=== PATIENT | male | born 1980 | race Caucasian/White ===

== ENCOUNTER 2019-10-12 13:17 | Inpatient (IN) | payer MEDICARE, MEDICAID ==
[~2019-10-12] VITALS: Ht 167.6 cm; Wt 96.6 kg
[2019-10-12 13:17] VITALS: BP 110/68
[~2019-10-12 13:17] MED LIST: GABAPENTIN300 MG ORAL; QUETIAPINE FUM300 MG ORAL
[2019-10-12 13:45] LABS: BASOPHILS % (AUTO) 0.6 % (0.0-2.0); EOSINOPHILS % (AUTO) 1.5 % (0.0-3.0); HEMATOCRIT 26.3 % (42.0-52.0); HEMOGLOBIN 9.3 G/DL (14.2-18.0); LYMPHOCYTES % (AUTO) 17.3 % (20.0-45.0); MEAN CORPUSCULAR VOLUME 92 FL (80-99); MONOCYTES % (AUTO) 7.1 % (1.0-10.0); NEUTROPHILS % (AUTO) 73.5 % (45.0-75.0); PLATELET COUNT 301 K/UL (150-450); RED BLOOD COUNT 2.87 M/UL (4.70-6.10); RED CELL DISTRIBUTION WIDTH 11.2 % (11.6-14.8); WHITE BLOOD COUNT 8.9 K/UL (4.8-10.8)
[2019-10-12 13:54] LABS: ANION GAP 11 mmol/L (5-15); BLOOD UREA NITROGEN 15 mg/dL (7-18); CALCIUM 9.3 MG/DL (8.5-10.1); CARBON DIOXIDE 30 MMOL/L (21-32); CHLORIDE 104 MMOL/L (98-107); CREATININE 1.1 MG/DL (0.55-1.30); POTASSIUM 3.5 MMOL/L (3.5-5.1); SODIUM 144 MMOL/L (136-145)
[2019-10-12 13:58] LABS: ALANINE AMINOTRANSFERASE 47 U/L (12-78); ALBUMIN 2.5 G/DL (3.4-5.0); ALBUMIN/GLOBULIN RATIO 0.5 (1.0-2.7); ALKALINE PHOSPHATASE 64 U/L (46-116); ASPARTATE AMINO TRANSFERASE 18 U/L (15-37); BILIRUBIN,TOTAL 0.3 MG/DL (0.2-1.0); CREATINE KINASE 22 U/L (26-308)
--- NOTE | 2019-10-12 14:11 | Diagnostic Imaging Report ---
. Indications: Vertigo Technique: Spiral acquisitions obtained through the brain. Angled axial and coronal 5 x 5 mm slices were reconstructed. Total dose length product 1125 mGycm. CTDI vol(s) 53 mGy. Dose reduction achieved using automated exposure control Comparison: None. Findings: No acute intracranial hemorrhage or edema. No mass effect nor midline shift. Normal size ventricles and extra axial CSF spaces. Normal yo-white differentiation. There is an old lacunar infarct versus prominent. The vascular space in the right posterior lentiform nucleus Intact calvarium. There is opacification of the right-sided mastoids as well as the middle ear cavity. There is extensive opacification of the visualized left maxillary sinus, fairly extensive left-sided ethmoid opacification, and right maxillary sinus mucosal disease. The orbits are unremarkable. Impression: Negative for acute intracranial bleed or mass effect Right-sided mastoid and middle ear opacification Sinus disease Old right basal ganglia lacunar infarct versus prominent perivascular space The CT scanner at [facility] is accredited by the [employer] and the scans are performed using protocols designed to limit radiation exposure to as low as reasonably achievable to attain images of sufficient resolution adequate for diagnostic evaluation.
--- NOTE | 2019-10-12 14:12 | Diagnostic Imaging Report ---
Indication: Chest pain Technique: One view of the chest Comparison: none Findings: Lungs and pleural spaces are clear. Heart size is normal. Impression: No acute process
[2019-10-12] MEDS ORDERED: Augmentin 875mg Tab ORAL ONE (14:45)
[2019-10-12] MEDS ORDERED: Meclizine 25mg tab ORAL PRN (14:45)
[2019-10-12 15:01] VITALS: BP 145/95
[2019-10-12] MEDS ORDERED: Piperacillin/Tazobactam 3.375 GM in NS 110 ML IVPB ONE (15:15)
[2019-10-12 15:36] LABS: APPEARANCE,URINE CLEAR; BILIRUBIN, URINE NEGATIVE (NEGATIVE); COLOR,URINE PALE YELLOW; GLUCOSE, URINE (UA) NEGATIVE (NEGATIVE); KETONES,URINE NEGATIVE (NEGATIVE); LEUKOCYTE ESTERASE ,URINE NEGATIVE (NEGATIVE); NITRITE,URINE NEGATIVE (NEGATIVE); PH,URINE 5 (4.5-8.0); PROTEIN,URINE 2+ (NEGATIVE); UROBILINOGEN,URINE NORMAL MG/DL (0.0-1.0)
[2019-10-12] MEDS ORDERED: LORazepam 1mg tab ORAL PRN (17:15)
[2019-10-12 17:24] VITALS: BP 131/70
--- NOTE | 2019-10-12 17:31 | History & Physical ---
History and Physical History & Physicial Dictated for Int Med-Dr Shin no. [id number]. Jamarcus Varghese MD Oct 12, 2019 17:31
--- NOTE | 2019-10-12 17:45 | Emergency Room Report ---
History of Present Illness General Chief Complaint: Dizziness Source: Patient (Stacey Alvarado) Present Illness HPI 39-year-old male with history of neuropathy here from boarding care due to feeling dizzy before taking shower earlier today. Patient denies any head injury and falling. Patient appears to be pale, no neurovascular deficits noted. Patient denies any generalized or unilateral weakness. Reports that for the past 2 weeks has been having left ear pain. Pus drainage noted to the right ear. Complains of vertigo. Complains of dizziness. Denies hearing loss , tinnitus, nausea vomiting. 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 Patient also reports that he has history of drug abuse however has not used in in a long time. Patient is in mild distress. Denies chest pain, shortness of breath, palpitation, headache and dizziness. Complains of weakness. (Stacey Alvarado) Allergies: Coded Allergies: EGG (Verified Allergy, Unknown, 10/12/19) VENLAFAXINE (Verified Allergy, Unknown, 10/12/19) Patient History Past Medical History: see triage record Past Surgical History: unable to obtain Pertinent Family History: unable to obtain Immunizations: UTD Reviewed Nursing Documentation: PMH: Agreed; PSxH: Agreed (Stacey Alvarado) Nursing Documentation-PMH Hx Diabetes: Yes History Of Psychiatric Problem: Yes Hx Dizziness: Yes Hx Weakness: Yes (Stacey Alvarado) Review of Systems All Other Systems: negative except mentioned in HPI (Stacey lAvarado) Physical Exam Vital Signs Date Time Temp Pulse Resp B/P (MAP) Pulse Ox O2 Delivery O2 Flow Rate FiO2 10/12/19 13:09 98.6 10/12/19 13:09 90 19 110/68 (82) 97 Room Air 10/12/19 15:01 2.0 Sp02 EP Interpretation: reviewed, normal General Appearance: alert, GCS 15, non-toxic, mild distress Head: normocephalic, atraumatic Eyes: bilateral eye normal inspection, bilateral eye PERRL ENT: hearing grossly normal, normal pharynx, no angioedema, other - pus drainage through right ear Neck: full range of motion, supple/symm/no masses Respiratory: chest non-tender, lungs clear, normal breath sounds, no rhonchi, no wheezing, speaking full sentences Cardiovascular #1: regular rate, rhythm, no edema, no murmur Gastrointestinal: normal bowel sounds, non tender, soft, non-distended, no guarding, no rebound Rectal: deferred Genitourinary: no CVA tenderness Musculoskeletal: back normal, digits/nails normal Neurologic: alert, motor strength/tone normal, oriented x3, sensory intact, responsive, speech normal Psychiatric: judgement/insight normal, memory normal, mood/affect normal, no suicidal/homicidal ideation Skin: no rash Lymphatic: no adenopathy (Stacey Alvarado) Medical Decision Making PA Attestation Diagnosis and treatment plans were reviewed and discussed with my supervising physician Dr. Mtz (Stacey Alvarado) PA Attestation I saw and evaluated the patient and discussed the care with Stacey MARINO. I agree with the findings and plan as documented in the note. (Joaquín Mtz MD) Diagnostic Impression: Primary Impression: Dizziness Additional Impression: Symptomatic anemia ER Course 39-year-old male with history of neuropathy here from [facility] care due to feeling dizzy before taking shower earlier today. Patient denies any head injury and falling. Patient appears to be pale, no neurovascular deficits noted. Patient denies any generalized or unilateral weakness. Reports that for the past 2 weeks has been having left ear pain. Pus drainage noted to the right ear. Complains of vertigo. Complains of dizziness. Denies hearing loss , tinnitus, nausea vomiting. 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 Patient also reports that he has history of drug abuse however has not used in in a long time. Patient is in mild distress. Denies chest pain, shortness of breath, palpitation, headache and dizziness. Complains of weakness. Patient also complains of having history of heart failure however has not been seen by a print project manager in a long time. Denies any chest pain. Ddx considered but are not limited to: Dizziness due to alcohol intoxication, dizziness unspecified, dizziness due to head trauma, dizziness secondary to cardiac reasons Vital signs: are WNL, pt. is afebrile H&PE are most consistent with: Dizziness, symptomatic anemia ORDERS: CBC, CMP, UA, tox screen, EtOH levels, PT PTT, head CT no contrast, chest x-ray, troponin, EKG, proBNP ER intervention: NS bolus, Zosyn, Zofran, meclizine Patient was admitted with diagnosis of dizziness, symptomatic anemia to Dr. Shin under supervision of : Smith pt stable at time of admission (Stacey Alvarado) EKG Diagnostic Results Rate: normal Rhythm: NSR ST Segments: no acute changes Other Impression No acute ST changes (Stacey Alvarado) Chest X-Ray Diagnostic Results Chest X-Ray Diagnostic Results : Chest X-Ray Ordered: Yes # of Views/Limited/Complete: 1 View Indication: Other EP Interpretation: Yes PA Xray: Interpretation reviewed, by supervising MD, and agrees with findings. Interpretation: no consolidation, no effusion, no pneumothorax Impression: No acute disease Electronically Signed by: Stacey Yap PA-C (Stacey Alvarado) CT/MRI/US Diagnostic Results CT/MRI/US Diagnostic Results : Imaging Test Ordered: Head CT no contrast Impression Old infarct noted, no intracranial bleed, sinus infection noted (Stacey Alvarado) Last Vital Signs Date Time Temp Pulse Resp B/P (MAP) Pulse Ox O2 Delivery O2 Flow Rate FiO2 10/12/19 17:24 101.8 85 20 131/70 (90) 96 10/12/19 17:00 Room Air 10/12/19 16:35 2.0 (Stacey Alvarado) Disposition: ADMITTED INPATIENT Condition: Serious Referrals: NOT CHOSEN IPA/,REFERRING (PCP) Stacey Alvarado Oct 12, 2019 17:45 Joaquín Mtz MD Oct 24, 2019 06:29
[2019-10-12 20:00] VITALS: BP 133/80
[2019-10-12] MEDS: QUEtiapine 200mg tab ORAL SCH (21:03)
[2019-10-12] MEDS: Heparin 5000 units/ml inj SUBQ SCH (21:08)
[2019-10-12] MEDS: NovoLOG Insulin Flexpen SUBQ SCH (21:09)
--- NOTE | 2019-10-12 21:30 | History and Physical Report ---
DATE OF ADMISSION: 10/12/2019 CHIEF COMPLAINT: The patient is a 39-year-old, male who presents with chief complaint of altered mental status. HISTORY OF THE PRESENT ILLNESS: The patient is a resident of [facility]. The patient states he has a history of diabetes, however he is not on any medication for diabetes. The patient states history of present illness began two weeks ago. The patient began to experience right ear pain. This extended to the right side of the face. The patient also has scotoma. The patient sees dots even when his eyes are closed. The patient also states he has photophobia. The patient has been closing himself in his room with lights off. The patient states this morning, he was getting ready to eat. The patient could hear staff talking to him however he could not respond. The patient was unable to get out of bed. The patient was transported to [place] emergency room. The patient was admitted with altered mental status to rule out versus acute cerebrovascular accident. REVIEW OF SYSTEMS: CONSTITUTIONAL: The patient denies weight loss or weight gain. The patient denies fevers or chills. HEENT: The patient denies ear or throat pain. The patient complains of headache as above. ABDOMEN: The patient denies nausea, vomiting, diarrhea, or constipation. GENITOURINARY: The patient denies dysuria or increased frequency of urination. NEUROMUSCULAR: The patient denies seizures or generalized weakness. PAST MEDICAL HISTORY: Significant for: 1. Type 2 diabetes, however, the patient is not on antihyperglycemic medication. 2. Neuropathy. 3. Hypertension. 4. Bipolar disorder. 5. Schizophrenia. PAST SURGICAL HISTORY: Significant for back surgery secondary to fall injury. CURRENT MEDICATIONS: 1. Gabapentin 300 mg one tablet p.o. three times a day. 2. Seroquel 200 mg one tablet p.o. twice daily. ALLERGIES: To Effexor. SOCIAL HISTORY: The patient is single and lives at [facility]. The patient admits to tobacco use of one-half pack per day. The patient denies alcohol use. PHYSICAL EXAMINATION: VITAL SIGNS: Temperature 98.6, respirations 19, pulse 90, blood pressure 110/68, pulse ox 97% on room air. GENERAL: The patient is well-developed and well-nourished male in no apparent distress. HEENT: Eyes, pupils are equal and responsive to light and accommodation. Extraocular movements are intact. NECK: Supple without lymphadenopathy. CHEST: Lungs are clear to auscultation bilaterally without wheezes or rales. CARDIOVASCULAR: Regular rate. S1 and S2 normal without murmurs, rubs, or gallops. ABDOMEN: Soft, nontender, nondistended. Positive bowel sounds. No evidence of hepatosplenomegaly. Currently, no rebound or guarding noted. EXTREMITIES: Negative for clubbing, cyanosis, or edema. RECTAL/GENITAL: Refused. NEUROLOGIC: Cranial nerves II through XII are grossly intact without focal deficits. Motor strength is 5/5 bilaterally. Deep tendon reflexes 2+ plantar. LABORATORY STUDIES: WBC 8.9, hemoglobin 9.3, hematocrit 26.3, platelets 301,000. Sodium 144, potassium 3.5, chloride 104, CO2 30, BUN 15, creatinine 1.1, glucose 176. Troponin 0.034. BNP elevated at 1730. Urinalysis showed 5+ blood with 15 to 20 rbc's. Urine toxicology screen was negative. ASSESSMENT: This is a 39-year-old male. 1. Altered mental status. 2. Congestive heart failure. 3. Right-sided headache. 4. Scotoma. 5. Photophobia. 6. Bipolar disorder. 7. Schizophrenia. 8. Diabetes type 2. 9. Hypertension. TREATMENT: 1. Altered mental status. This may be secondary to acute cerebrovascular accident versus . The patient is currently not on antihyperglycemic medication. The patient has been started on a NovoLog sliding scale as his admission glucose is elevated. 2. Congestive heart failure. Cardiology consultation has been obtained with Dr. Lucas Bauer. We will follow recommendations of Cardiology. An echocardiogram is pending. 3. Right-sided headache. The patient will receive Tylenol as needed for headache. A CT scan of the brain in the emergency room failed to demonstrate acute intracranial bleed or mass effect. 4. Bipolar disorder/schizophrenia. Continue Seroquel as above. 5. Diabetes type 2. As above, the patient has been placed on NovoLog sliding scale. 6. Hypertension. The patient is currently off antihypertensive medications. 7. Sinusitis. Initial CT scan of the brain revealed right-sided mastoid and middle ear opacification. The patient has been started empirically on Levaquin. Jamarcus Varghese M.D. DR: [place] JOB#: [id number] CC:
[2019-10-13] VITALS: BP 133/81
[2019-10-13 04:00] VITALS: BP 120/67
[2019-10-13] MEDS: NovoLOG Insulin Flexpen SUBQ SCH ×4 (06:18→22:00)
[2019-10-13 07:09] LABS: BASOPHILS % (AUTO) 0.6 % (0.0-2.0); EOSINOPHILS % (AUTO) 2.4 % (0.0-3.0); HEMATOCRIT 24.9 % (42.0-52.0); HEMOGLOBIN 8.5 G/DL (14.2-18.0); LYMPHOCYTES % (AUTO) 24.2 % (20.0-45.0); MEAN CORPUSCULAR VOLUME 93 FL (80-99); MONOCYTES % (AUTO) 11.6 % (1.0-10.0); NEUTROPHILS % (AUTO) 61.2 % (45.0-75.0); PLATELET COUNT 249 K/UL (150-450); RED BLOOD COUNT 2.67 M/UL (4.70-6.10); RED CELL DISTRIBUTION WIDTH 11.3 % (11.6-14.8); WHITE BLOOD COUNT 6.8 K/UL (4.8-10.8)
[2019-10-13 07:21] LABS: ANION GAP 4 mmol/L (5-15); BLOOD UREA NITROGEN 21 mg/dL (7-18); CALCIUM 8.8 MG/DL (8.5-10.1); CARBON DIOXIDE 33 MMOL/L (21-32); CHLORIDE 106 MMOL/L (98-107); CREATININE 1.2 MG/DL (0.55-1.30); SODIUM 143 MMOL/L (136-145)
[2019-10-13 08:00] VITALS: BP 141/86
[2019-10-13] MEDS: QUEtiapine 200mg tab ORAL SCH ×2 (08:43→21:44)
[2019-10-13] MEDS: Aspirin EC 325mg tab ORAL SCH (08:43)
[2019-10-13] MEDS: Heparin 5000 units/ml inj SUBQ SCH ×2 (08:51→21:46)
[2019-10-13 12:00] VITALS: BP 137/73
--- NOTE | 2019-10-13 13:03 | Infectious Diseases Prog Note ---
Subjective Allergies: Coded Allergies: EGG (Verified Allergy, Unknown, 10/12/19) VENLAFAXINE (Verified Allergy, Unknown, 10/12/19) Subjective # [id number] Objective Vital Signs Last 24 Hour Vital Signs Date Time Temp Pulse Resp B/P (MAP) Pulse Ox O2 Delivery O2 Flow Rate FiO2 10/13/19 12:00 81 10/13/19 12:00 2.0 10/13/19 12:00 98.8 79 20 137/73 (94) 94 10/13/19 09:00 Nasal Cannula 2.0 10/13/19 08:00 98.2 78 18 141/86 (104) 97 10/13/19 04:00 71 10/13/19 04:00 2.0 10/13/19 04:00 96.9 72 18 120/67 (84) 97 10/13/19 00:00 80 10/13/19 00:00 98.1 80 17 133/81 (98) 96 10/12/19 21:00 Nasal Cannula 2.0 10/12/19 20:00 98.2 82 18 133/80 (97) 97 10/12/19 20:00 2.0 10/12/19 20:00 76 10/12/19 18:23 99.0 10/12/19 18:07 90 10/12/19 17:24 101.8 85 20 131/70 (90) 96 10/12/19 17:00 Room Air 10/12/19 16:35 98.3 92 15 124/67 97 Nasal Cannula 2.0 10/12/19 15:01 98.5 95 15 145/95 90 Nasal Cannula 2.0 10/12/19 13:17 90 19 Room Air 10/12/19 13:17 98.6 90 19 110/68 97 Room Air 10/12/19 13:09 98.6 90 19 110/68 (82) 97 Room Air 10/12/19 13:09 98.6 Height (Feet): 5 Height (Inches): 6.00 Weight (Pounds): 209 Microbiology Date/Time Source Procedure Growth Status 10/12/19 15:15 Rectum Received Laboratory Tests Test 10/12/19 13:30 10/12/19 15:08 10/12/19 20:05 10/13/19 06:29 White Blood Count 8.9 K/UL (4.8-10.8) 6.8 K/UL (4.8-10.8) Red Blood Count 2.87 M/UL (4.70-6.10) L 2.67 M/UL (4.70-6.10) L Hemoglobin 9.3 G/DL (14.2-18.0) L 8.5 G/DL (14.2-18.0) L Hematocrit 26.3 % (42.0-52.0) L 24.9 % (42.0-52.0) L Mean Corpuscular Volume 92 FL (80-99) 93 FL (80-99) Mean Corpuscular Hemoglobin 32.5 PG (27.0-31.0) H 31.9 PG (27.0-31.0) H Mean Corpuscular Hemoglobin Concent 35.5 G/DL (32.0-36.0) 34.3 G/DL (32.0-36.0) Red Cell Distribution Width 11.2 % (11.6-14.8) L 11.3 % (11.6-14.8) L Platelet Count 301 K/UL (150-450) 249 K/UL (150-450) Mean Platelet Volume 5.0 FL (6.5-10.1) L 5.0 FL (6.5-10.1) L Neutrophils (%) (Auto) 73.5 % (45.0-75.0) 61.2 % (45.0-75.0) Lymphocytes (%) (Auto) 17.3 % (20.0-45.0) L 24.2 % (20.0-45.0) Monocytes (%) (Auto) 7.1 % (1.0-10.0) 11.6 % (1.0-10.0) H Eosinophils (%) (Auto) 1.5 % (0.0-3.0) 2.4 % (0.0-3.0) Basophils (%) (Auto) 0.6 % (0.0-2.0) 0.6 % (0.0-2.0) Prothrombin Time 10.8 SEC (9.30-11.50) Prothromb Time International Ratio 1.0 (0.9-1.1) Activated Partial Thromboplast Time 27 SEC (23-33) Sodium Level 144 MMOL/L (136-145) 143 MMOL/L (136-145) Potassium Level 3.5 MMOL/L (3.5-5.1) 4.0 MMOL/L (3.5-5.1) Chloride Level 104 MMOL/L (98-107) 106 MMOL/L (98-107) Carbon Dioxide Level 30 MMOL/L (21-32) 33 MMOL/L (21-32) H Anion Gap 11 mmol/L (5-15) 4 mmol/L (5-15) L Blood Urea Nitrogen 15 mg/dL (7-18) 21 mg/dL (7-18) H Creatinine 1.1 MG/DL (0.55-1.30) 1.2 MG/DL (0.55-1.30) Estimat Glomerular Filtration Rate > 60 mL/min (>60) > 60 mL/min (>60) Glucose Level 176 MG/DL (74-106) H 144 MG/DL (74-106) H Hemoglobin A1c 5.9 % (4.3-6.0) Calcium Level 9.3 MG/DL (8.5-10.1) 8.8 MG/DL (8.5-10.1) Total Bilirubin 0.3 MG/DL (0.2-1.0) Aspartate Amino Transf (AST/SGOT) 18 U/L (15-37) Alanine Aminotransferase (ALT/SGPT) 47 U/L (12-78) Alkaline Phosphatase 64 U/L (46-116) Total Creatine Kinase 22 U/L (26-308) L Troponin I 0.034 ng/mL (0.000-0.056) 0.035 ng/mL (0.000-0.056) Pro-B-Type Natriuretic Peptide 1730 pg/mL (0-125) H 523 pg/mL (0-125) H Total Protein 7.6 G/DL (6.4-8.2) Albumin 2.5 G/DL (3.4-5.0) L Globulin 5.1 g/dL Albumin/Globulin Ratio 0.5 (1.0-2.7) L Serum Alcohol < 3 mg/dL Urine Color Pale yellow Urine Appearance Clear Urine pH 5 (4.5-8.0) Urine Specific [place] 1.005 (1.005-1.035) Urine Protein 2+ (NEGATIVE) H Urine Glucose (UA) Negative (NEGATIVE) Urine Ketones Negative (NEGATIVE) Urine Blood 5+ (NEGATIVE) H Urine Nitrite Negative (NEGATIVE) Urine Bilirubin Negative (NEGATIVE) Urine Urobilinogen Normal MG/DL (0.0-1.0) Urine Leukocyte Esterase Negative (NEGATIVE) Urine RBC 15-20 /HPF (0 - 0) H Urine WBC 0-2 /HPF (0 - 0) Urine Squamous Epithelial Cells Occasional /LPF Urine Amorphous Sediment Moderate /LPF (NONE) H Urine Bacteria Few /HPF (NONE) Urine Opiates Screen Negative (NEGATIVE) Urine Barbiturates Screen Negative (NEGATIVE) Phencyclidine (PCP) Screen Negative (NEGATIVE) Urine Amphetamines Screen Negative (NEGATIVE) Urine Benzodiazepines Screen Negative (NEGATIVE) Urine Cocaine Screen Negative (NEGATIVE) Urine Marijuana (THC) Screen Negative (NEGATIVE) Current Medications Medications (Trade) Dose Ordered Sig/Yaima Route PRN Reason Start Time Stop Time Status Last Admin Dose Admin Acetaminophen (Tylenol) 650 mg Q4H PRN ORAL fever 10/12/19 17:15 11/11/19 17:14 10/12/19 17:53 Acetaminophen (Tylenol) 650 mg Q4H PRN ORAL Mild Pain (Pain Scale 1-3) 10/12/19 17:15 11/11/19 17:14 Aspirin (Ecotrin) 325 mg DAILY ORAL 10/13/19 09:00 11/12/19 08:59 10/13/19 08:43 Dextrose (Dextrose 50%) 25 ml Q30M PRN IV Hypoglycemia 10/12/19 17:30 11/11/19 17:29 Dextrose (Dextrose 50%) 50 ml Q30M PRN IV Hypoglycemia 10/12/19 17:30 11/11/19 17:29 Gabapentin (Neurontin) 300 mg BEDTIME ORAL 10/12/19 21:00 11/11/19 20:59 10/12/19 21:03 Heparin Sodium (Porcine) (Heparin 5000 units/ml) 5,000 units EVERY 12 HOURS SUBQ 10/12/19 21:00 11/11/19 20:59 10/13/19 08:51 Insulin Aspart (NovoLOG) BEFORE MEALS AND HS SUBQ 10/12/19 21:00 11/11/19 20:59 10/12/19 21:09 Lorazepam (Ativan) 1 mg Q4H PRN ORAL For Anxiety 10/12/19 17:15 10/19/19 17:14 Meclizine HCl (Antivert) 25 mg NOW PRN ORAL for dizziness 10/12/19 14:45 11/11/19 14:44 10/12/19 14:52 Pantoprazole (Protonix) 40 mg DAILY ORAL 10/13/19 09:00 11/12/19 08:59 10/13/19 08:43 Quetiapine Fumarate (SEROqueL) 200 mg Q12HR ORAL 10/12/19 21:00 11/11/19 20:59 10/13/19 08:43 Munir Thompson MD Oct 13, 2019 13:03
--- NOTE | 2019-10-13 14:00 | Consultation ---
History of Present Illness General Date patient seen: Oct 13, 2019 Chief Complaint: Dizziness Reason for Consultation: inpatient management Present Illness HPI 39 year old male with hx of psychosis, schizophrenia, depression, living in an assisted living started having right sided ear pain for the last two weeks. He developed photophobia as well. On presentation he was found severely anemic and admitted to telemetry. Allergies: Coded Allergies: EGG (Verified Allergy, Unknown, 10/12/19) VENLAFAXINE (Verified Allergy, Unknown, 10/12/19) Medication History Scheduled Gabapentin* (Gabapentin*), 300 MG ORAL BEDTIME, (Reported) Quetiapine Fumarate (Quetiapine Fumarate), 300 MG ORAL DAILY, (Reported) Patient History Healthcare decision maker Resuscitation status Full Code Advanced Directive on File Past Medical/Surgical History Past Medical/Surgical History: (1) Schizophrenia Review of Systems All Other Systems: negative except mentioned in HPI Physical Exam General Appearance: WD/WN, alert Lines, tubes and drains: peripheral HEENT: normocephalic, anicteric Neck: non-tender, supple Respiratory/Chest: chest wall non-tender, lungs clear, normal breath sounds, no respiratory distress Cardiovascular/Chest: normal peripheral pulses, normal rate Abdomen: normal bowel sounds, non tender Genitourinary/Rectal: normal genital exam Extremities: normal range of motion Skin Exam: normal pigmentation Last 24 Hour Vital Signs Date Time Temp Pulse Resp B/P (MAP) Pulse Ox O2 Delivery O2 Flow Rate FiO2 10/13/19 12:00 81 10/13/19 12:00 2.0 10/13/19 12:00 98.8 79 20 137/73 (94) 94 10/13/19 09:00 Nasal Cannula 2.0 10/13/19 08:00 98.2 78 18 141/86 (104) 97 10/13/19 04:00 71 10/13/19 04:00 2.0 10/13/19 04:00 96.9 72 18 120/67 (84) 97 10/13/19 00:00 80 10/13/19 00:00 98.1 80 17 133/81 (98) 96 10/12/19 21:00 Nasal Cannula 2.0 10/12/19 20:00 98.2 82 18 133/80 (97) 97 10/12/19 20:00 2.0 10/12/19 20:00 76 10/12/19 18:23 99.0 10/12/19 18:07 90 10/12/19 17:24 101.8 85 20 131/70 (90) 96 10/12/19 17:00 Room Air 10/12/19 16:35 98.3 92 15 124/67 97 Nasal Cannula 2.0 10/12/19 15:01 98.5 95 15 145/95 90 Nasal Cannula 2.0 Intake and Output 10/12/19 10/13/19 19:00 07:00 Intake Total 1480 ml Output Total 450 ml 400 ml Balance 1030 ml -400 ml Intake Oral 480 ml IV Total 1000 ml Output Urine Total 450 ml 400 ml Laboratory Tests Test 10/12/19 15:08 10/12/19 20:05 10/13/19 06:29 Urine Color Pale yellow Urine Appearance Clear Urine pH 5 (4.5-8.0) Urine Specific [place] 1.005 (1.005-1.035) Urine Protein 2+ (NEGATIVE) H Urine Glucose (UA) Negative (NEGATIVE) Urine Ketones Negative (NEGATIVE) Urine Blood 5+ (NEGATIVE) H Urine Nitrite Negative (NEGATIVE) Urine Bilirubin Negative (NEGATIVE) Urine Urobilinogen Normal MG/DL (0.0-1.0) Urine Leukocyte Esterase Negative (NEGATIVE) Urine RBC 15-20 /HPF (0 - 0) H Urine WBC 0-2 /HPF (0 - 0) Urine Squamous Epithelial Cells Occasional /LPF Urine Amorphous Sediment Moderate /LPF (NONE) H Urine Bacteria Few /HPF (NONE) Urine Opiates Screen Negative (NEGATIVE) Urine Barbiturates Screen Negative (NEGATIVE) Phencyclidine (PCP) Screen Negative (NEGATIVE) Urine Amphetamines Screen Negative (NEGATIVE) Urine Benzodiazepines Screen Negative (NEGATIVE) Urine Cocaine Screen Negative (NEGATIVE) Urine Marijuana (THC) Screen Negative (NEGATIVE) Troponin I 0.035 ng/mL (0.000-0.056) White Blood Count 6.8 K/UL (4.8-10.8) Red Blood Count 2.67 M/UL (4.70-6.10) L Hemoglobin 8.5 G/DL (14.2-18.0) L Hematocrit 24.9 % (42.0-52.0) L Mean Corpuscular Volume 93 FL (80-99) Mean Corpuscular Hemoglobin 31.9 PG (27.0-31.0) H Mean Corpuscular Hemoglobin Concent 34.3 G/DL (32.0-36.0) Red Cell Distribution Width 11.3 % (11.6-14.8) L Platelet Count 249 K/UL (150-450) Mean Platelet Volume 5.0 FL (6.5-10.1) L Neutrophils (%) (Auto) 61.2 % (45.0-75.0) Lymphocytes (%) (Auto) 24.2 % (20.0-45.0) Monocytes (%) (Auto) 11.6 % (1.0-10.0) H Eosinophils (%) (Auto) 2.4 % (0.0-3.0) Basophils (%) (Auto) 0.6 % (0.0-2.0) Sodium Level 143 MMOL/L (136-145) Potassium Level 4.0 MMOL/L (3.5-5.1) Chloride Level 106 MMOL/L (98-107) Carbon Dioxide Level 33 MMOL/L (21-32) H Anion Gap 4 mmol/L (5-15) L Blood Urea Nitrogen 21 mg/dL (7-18) H Creatinine 1.2 MG/DL (0.55-1.30) Estimat Glomerular Filtration Rate > 60 mL/min (>60) Glucose Level 144 MG/DL (74-106) H Calcium Level 8.8 MG/DL (8.5-10.1) Pro-B-Type Natriuretic Peptide 523 pg/mL (0-125) H Microbiology Date/Time Source Procedure Growth Status 10/12/19 15:15 Rectum Received Height (Feet): 5 Height (Inches): 6.00 Weight (Pounds): 209 Medications Current Medications Medications (Trade) Dose Ordered Sig/Yaima Route PRN Reason Start Time Stop Time Status Last Admin Dose Admin Acetaminophen (Tylenol) 650 mg Q4H PRN ORAL fever 10/12/19 17:15 11/11/19 17:14 10/12/19 17:53 Acetaminophen (Tylenol) 650 mg Q4H PRN ORAL Mild Pain (Pain Scale 1-3) 10/12/19 17:15 11/11/19 17:14 Aspirin (Ecotrin) 325 mg DAILY ORAL 10/13/19 09:00 11/12/19 08:59 10/13/19 08:43 Dextrose (Dextrose 50%) 25 ml Q30M PRN IV Hypoglycemia 10/12/19 17:30 11/11/19 17:29 Dextrose (Dextrose 50%) 50 ml Q30M PRN IV Hypoglycemia 10/12/19 17:30 11/11/19 17:29 Gabapentin (Neurontin) 300 mg BEDTIME ORAL 10/12/19 21:00 11/11/19 20:59 10/12/19 21:03 Heparin Sodium (Porcine) (Heparin 5000 units/ml) 5,000 units EVERY 12 HOURS SUBQ 10/12/19 21:00 11/11/19 20:59 10/13/19 08:51 Insulin Aspart (NovoLOG) BEFORE MEALS AND HS SUBQ 10/12/19 21:00 11/11/19 20:59 10/12/19 21:09 Lorazepam (Ativan) 1 mg Q4H PRN ORAL For Anxiety 10/12/19 17:15 10/19/19 17:14 Meclizine HCl (Antivert) 25 mg NOW PRN ORAL for dizziness 10/12/19 14:45 11/11/19 14:44 10/12/19 14:52 Pantoprazole (Protonix) 40 mg DAILY ORAL 10/13/19 09:00 11/12/19 08:59 10/13/19 08:43 Piperacillin Sod/ Tazobactam Sod 3.375 gm/Sodium Chloride 110 ml @ 27.5 mls/hr Q8H IVPB 10/13/19 14:30 10/20/19 14:29 Quetiapine Fumarate (SEROqueL) 200 mg Q12HR ORAL 10/12/19 21:00 11/11/19 20:59 10/13/19 08:43 Vancomycin HCl (Vanco rx to dose) 1 ea DAILY PRN MISC Per rx protocol 10/13/19 13:15 11/12/19 13:14 Vancomycin/Sodium Chloride 275 ml @ 137.5 mls/ hr Q12H IVPB 10/13/19 19:00 10/18/19 18:59 Assessment/Plan Problem List: (1) Otitis ICD Codes: H66.90 - Otitis media, unspecified, unspecified ear SNOMED: 57126179 (2) Schizophrenia ICD Codes: F20.9 - Schizophrenia, unspecified SNOMED: 85921936 (3) Symptomatic anemia ICD Codes: D64.9 - Anemia, unspecified SNOMED: 710168824 Assessment/Plan: pain control iv abx ENT called check cultures resume anti psychiatric meds Kati Gamble MD Oct 13, 2019 14:00
[2019-10-13] MEDS: Piperacillin/Tazobactam 3.375 GM in NS 110 ML IVPB SCH ×2 (15:01→21:43)
[2019-10-13 16:08] VITALS: BP 140/69
--- NOTE | 2019-10-13 16:41 | Diagnostic Imaging Report ---
Indication: Head pain Technique: IV administration nonionic contrast. Spiral acquisitions obtained through the brain Multiplanar reconstructions were generated. Total dose length product 1170 mGycm. CTDIvol(s) 53, 77, 13 mGy. Radiation dose was minimized using automated exposure control Comparison: Noncontrast head CT 10/12/2019 Findings: No abnormal contrast enhancing lesion is demonstrated. No definite acute hemorrhage. No mass effect nor midline shift. Again demonstrated is bilateral maxillary, sphenoid, ethmoid, and frontal sinus disease. Again demonstrated is extensive opacification of the right mastoid air cells. There is also probably soft tissue within the middle ear. There is narrowing of the external auditory canal, which on the available sections is filled with soft tissue or fluid. This was contain air on previous day's exam. There is some indistinctness of the anterior wall of the temporal bone on the right as compared to the left. Impression: Abnormal right temporal bone, with opacification of the right mastoid air cells, probably the middle ear cavity, and of the external auditory canal. Per discussion with referring physician, patient has evidence of otitis with pus coming out of the ear. In addition, there is slight indistinctness of the anterior margin of the temporal bone as compared to the left, which could indicate bony erosive changes. Consider further evaluation with temporal bone CT and/or MRI No evidence of associated brain abscess. Findings discussed by phone with Dr. Thompson at the time of interpretation The CT scanner at [facility] is accredited by the [employer] and the scans are performed using protocols designed to limit radiation exposure to as low as reasonably achievable to attain images of sufficient resolution adequate for diagnostic evaluation.
[2019-10-13] MEDS: Vancomycin 1.5gm/NS Premix IVPB SCH (19:06)
--- NOTE | 2019-10-13 19:08 | Cardiac Electrophysiology PN ---
Subjective Subjective [id number] Objective Last 24 Hour Vital Signs Date Time Temp Pulse Resp B/P (MAP) Pulse Ox O2 Delivery O2 Flow Rate FiO2 10/13/19 16:08 2.0 10/13/19 16:08 98.4 68 18 140/69 (92) 94 10/13/19 16:00 89 10/13/19 12:00 81 10/13/19 12:00 2.0 10/13/19 12:00 98.8 79 20 137/73 (94) 94 10/13/19 09:00 Nasal Cannula 2.0 10/13/19 08:00 98.2 78 18 141/86 (104) 97 10/13/19 04:00 71 10/13/19 04:00 2.0 10/13/19 04:00 96.9 72 18 120/67 (84) 97 10/13/19 00:00 80 10/13/19 00:00 98.1 80 17 133/81 (98) 96 10/12/19 21:00 Nasal Cannula 2.0 10/12/19 20:00 98.2 82 18 133/80 (97) 97 10/12/19 20:00 2.0 10/12/19 20:00 76 Intake and Output 10/12/19 10/13/19 19:00 07:00 Intake Total 1480 ml Output Total 450 ml 400 ml Balance 1030 ml -400 ml Intake Oral 480 ml IV Total 1000 ml Output Urine Total 450 ml 400 ml Laboratory Tests Test 10/12/19 20:05 10/13/19 06:29 Troponin I 0.035 ng/mL (0.000-0.056) White Blood Count 6.8 K/UL (4.8-10.8) Red Blood Count 2.67 M/UL (4.70-6.10) L Hemoglobin 8.5 G/DL (14.2-18.0) L Hematocrit 24.9 % (42.0-52.0) L Mean Corpuscular Volume 93 FL (80-99) Mean Corpuscular Hemoglobin 31.9 PG (27.0-31.0) H Mean Corpuscular Hemoglobin Concent 34.3 G/DL (32.0-36.0) Red Cell Distribution Width 11.3 % (11.6-14.8) L Platelet Count 249 K/UL (150-450) Mean Platelet Volume 5.0 FL (6.5-10.1) L Neutrophils (%) (Auto) 61.2 % (45.0-75.0) Lymphocytes (%) (Auto) 24.2 % (20.0-45.0) Monocytes (%) (Auto) 11.6 % (1.0-10.0) H Eosinophils (%) (Auto) 2.4 % (0.0-3.0) Basophils (%) (Auto) 0.6 % (0.0-2.0) Sodium Level 143 MMOL/L (136-145) Potassium Level 4.0 MMOL/L (3.5-5.1) Chloride Level 106 MMOL/L (98-107) Carbon Dioxide Level 33 MMOL/L (21-32) H Anion Gap 4 mmol/L (5-15) L Blood Urea Nitrogen 21 mg/dL (7-18) H Creatinine 1.2 MG/DL (0.55-1.30) Estimat Glomerular Filtration Rate > 60 mL/min (>60) Glucose Level 144 MG/DL (74-106) H Calcium Level 8.8 MG/DL (8.5-10.1) Pro-B-Type Natriuretic Peptide 523 pg/mL (0-125) H Microbiology Date/Time Source Procedure Growth Status 10/12/19 15:15 Rectum Received Lucas Bauer MD Oct 13, 2019 19:08
--- NOTE | 2019-10-13 19:12 | Internal Med Progress Note ---
Subjective Date of Service: Oct 13, 2019 Physician Name Jamarcus Varghese Attending Physician Robin Shin MD Current Medications Medications (Trade) Dose Ordered Sig/Yaima Route PRN Reason Start Time Stop Time Status Last Admin Dose Admin Acetaminophen (Tylenol) 650 mg Q4H PRN ORAL fever 10/12/19 17:15 11/11/19 17:14 10/12/19 17:53 Acetaminophen (Tylenol) 650 mg Q4H PRN ORAL Mild Pain (Pain Scale 1-3) 10/12/19 17:15 11/11/19 17:14 Aspirin (Ecotrin) 325 mg DAILY ORAL 10/13/19 09:00 11/12/19 08:59 10/13/19 08:43 Dextrose (Dextrose 50%) 25 ml Q30M PRN IV Hypoglycemia 10/12/19 17:30 11/11/19 17:29 Dextrose (Dextrose 50%) 50 ml Q30M PRN IV Hypoglycemia 10/12/19 17:30 11/11/19 17:29 Gabapentin (Neurontin) 300 mg BEDTIME ORAL 10/12/19 21:00 11/11/19 20:59 10/12/19 21:03 Heparin Sodium (Porcine) (Heparin 5000 units/ml) 5,000 units EVERY 12 HOURS SUBQ 10/12/19 21:00 11/11/19 20:59 10/13/19 08:51 Insulin Aspart (NovoLOG) BEFORE MEALS AND HS SUBQ 10/12/19 21:00 11/11/19 20:59 10/12/19 21:09 Lorazepam (Ativan) 1 mg Q4H PRN ORAL For Anxiety 10/12/19 17:15 10/19/19 17:14 Meclizine HCl (Antivert) 25 mg NOW PRN ORAL for dizziness 10/12/19 14:45 11/11/19 14:44 10/12/19 14:52 Metoprolol Tartrate (Lopressor) 25 mg EVERY 12 HOURS ORAL 10/13/19 21:00 11/12/19 20:59 UNV Pantoprazole (Protonix) 40 mg DAILY ORAL 10/13/19 09:00 11/12/19 08:59 10/13/19 08:43 Piperacillin Sod/ Tazobactam Sod 3.375 gm/Sodium Chloride 110 ml @ 27.5 mls/hr Q8H IVPB 10/13/19 14:30 10/20/19 14:29 10/13/19 15:01 Quetiapine Fumarate (SEROqueL) 200 mg Q12HR ORAL 10/12/19 21:00 11/11/19 20:59 10/13/19 08:43 Vancomycin HCl (Vanco rx to dose) 1 ea DAILY PRN MISC Per rx protocol 10/13/19 13:15 11/12/19 13:14 Vancomycin/Sodium Chloride 275 ml @ 137.5 mls/ hr Q12H IVPB 10/13/19 19:00 10/18/19 18:59 10/13/19 19:06 Allergies: Coded Allergies: EGG (Verified Allergy, Unknown, 10/12/19) VENLAFAXINE (Verified Allergy, Unknown, 10/12/19) ROS Limited/Unobtainable: No Constitutional: Reports: no symptoms HEENT: Reports: no symptoms Cardiovascular: Reports: no symptoms Respiratory: Reports: no symptoms Gastrointestinal/Abdominal: Reports: no symptoms Genitourinary: Reports: no symptoms Neurologic/Psychiatric: Reports: no symptoms Subjective 39 YO admitted with right headache. Now mastoiditis. Cover for Int Med-Dr Shin Objective Last Vital Signs Date Time Temp Pulse Resp B/P (MAP) Pulse Ox O2 Delivery O2 Flow Rate FiO2 10/13/19 16:08 2.0 10/13/19 16:08 98.4 68 18 140/69 (92) 94 10/13/19 09:00 Nasal Cannula Laboratory Tests Test 10/12/19 20:05 10/13/19 06:29 Troponin I 0.035 ng/mL (0.000-0.056) White Blood Count 6.8 K/UL (4.8-10.8) Red Blood Count 2.67 M/UL (4.70-6.10) L Hemoglobin 8.5 G/DL (14.2-18.0) L Hematocrit 24.9 % (42.0-52.0) L Mean Corpuscular Volume 93 FL (80-99) Mean Corpuscular Hemoglobin 31.9 PG (27.0-31.0) H Mean Corpuscular Hemoglobin Concent 34.3 G/DL (32.0-36.0) Red Cell Distribution Width 11.3 % (11.6-14.8) L Platelet Count 249 K/UL (150-450) Mean Platelet Volume 5.0 FL (6.5-10.1) L Neutrophils (%) (Auto) 61.2 % (45.0-75.0) Lymphocytes (%) (Auto) 24.2 % (20.0-45.0) Monocytes (%) (Auto) 11.6 % (1.0-10.0) H Eosinophils (%) (Auto) 2.4 % (0.0-3.0) Basophils (%) (Auto) 0.6 % (0.0-2.0) Sodium Level 143 MMOL/L (136-145) Potassium Level 4.0 MMOL/L (3.5-5.1) Chloride Level 106 MMOL/L (98-107) Carbon Dioxide Level 33 MMOL/L (21-32) H Anion Gap 4 mmol/L (5-15) L Blood Urea Nitrogen 21 mg/dL (7-18) H Creatinine 1.2 MG/DL (0.55-1.30) Estimat Glomerular Filtration Rate > 60 mL/min (>60) Glucose Level 144 MG/DL (74-106) H Calcium Level 8.8 MG/DL (8.5-10.1) Pro-B-Type Natriuretic Peptide 523 pg/mL (0-125) H Microbiology Date/Time Source Procedure Growth Status 10/12/19 15:15 Rectum Received Intake and Output 10/12/19 10/13/19 19:00 07:00 Intake Total 1480 ml Output Total 450 ml 400 ml Balance 1030 ml -400 ml Intake Oral 480 ml IV Total 1000 ml Output Urine Total 450 ml 400 ml Objective PHYSICAL EXAMINATION: GENERAL: The patient is well-developed and well-nourished male in no apparent distress. HEENT: Eyes, pupils are equal and responsive to light and accommodation. Extraocular movements are intact. NECK: Supple without lymphadenopathy. CHEST: Lungs are clear to auscultation bilaterally without wheezes or rales. CARDIOVASCULAR: Regular rate. S1 and S2 normal without murmurs, rubs, or gallops. ABDOMEN: Soft, nontender, nondistended. Positive bowel sounds. No evidence of hepatosplenomegaly. Currently, no rebound or guarding noted. EXTREMITIES: Negative for clubbing, cyanosis, or edema. RECTAL/GENITAL: Refused. NEUROLOGIC: Cranial nerves II through XII are grossly intact without focal deficits. Motor strength is 5/5 bilaterally. Deep tendon reflexes 2+ plantar. Assessment/Plan Assessment/Plan ASSESSMENT: This is a 39-year-old male. 1. Altered mental status. 2. Congestive heart failure. 3. Right-sided headache. 4. [place]. 5. Photophobia. 6. Bipolar disorder. 7. Schizophrenia. 8. Diabetes type 2. 9. Hypertension. 10. Mastoiditis TREATMENT: 1. Altered mental status. This may be secondary to acute cerebrovascular accident versus . The patient is currently not on antihyperglycemic medication. The patient has been started on a NovoLog sliding scale as his admission glucose is elevated. 2. Congestive heart failure. Cardiology consultation has been obtained with Dr. Lucas Bauer. We will follow recommendations of Cardiology. An echocardiogram is pending. 3. Right-sided headache. The patient will receive Tylenol as needed for headache. A CT scan of the brain in the emergency room failed to demonstrate acute intracranial bleed or mass effect. 4. Bipolar disorder/schizophrenia. Continue Seroquel as above. 5. Diabetes type 2. As above, the patient has been placed on NovoLog sliding scale. 6. Hypertension. The patient is currently off antihypertensive medications. 7. Sinusitis. Initial CT scan of the brain revealed right-sided mastoid and middle ear opacification. The patient has been started empirically on Levaquin. 8. ENT consult pending for mastoiditis 9. ABX=vanco and zosyn per ID=Jamarcus Anderson MD Oct 13, 2019 19:12
[2019-10-13 20:00] VITALS: BP 150/84
--- NOTE | 2019-10-13 20:15 | Consultation ---
DATE OF CONSULTATION: 10/13/2019 INFECTIOUS DISEASES CONSULTATION CONSULTING PHYSICIAN: Munir Thompson M.D. REFERRING PHYSICIAN: Jamarcus Varghese M.D. REASON FOR CONSULTATION: Evaluation of patient for mastoiditis, antibody treatment. HISTORY OF PRESENT ILLNESS: The patient is a 39-year-old male with multiple medical problems, who was admitted to this medical center due to altered level of consciousness. The patient overall is poor historian. The patient is complaining of having pain in the right side of the head. About two weeks ago also had drainage from right ear canal. CT scan showed evidence of sinusitis, mastoiditis, and otitis media. Infectious Diseases consultation has been requested for antibiotic management. PAST MEDICAL HISTORY: 1. Diabetes. 2. History of neuropathy. 3. Hypertension. 4. Bipolar disorder. 5. Schizophrenia. 6. History of back surgery due to the fall. ALLERGIES: No allergies to antibiotics. SOCIAL HISTORY: The patient resides at [facility]. FAMILY HISTORY: Noncontributory. MEDICATIONS: The patient received one dose of Zosyn in the emergency room. REVIEW OF SYSTEMS: The patient overall poor historian PHYSICAL EXAMINATION: VITAL SIGNS: Temperature 101 at time of admission, pulse 79, respiratory rate 18, and blood pressure is 137/73. HEENT: No pale conjunctivae. No icterus. The patient has drainage from the right ear, also appears to have tenderness over the right side of mastoid, right sinus, right maxilla and frontal sinuses. NECK: No lymphadenopathy CHEST: Clear. HEART: S1 and S2. ABDOMEN: Soft and nontender. EXTREMITIES: No cyanosis. NEUROLOGIC: Awake. LABORATORY AND DIAGNOSTIC DATA: White blood cells 6.8, hemoglobin 8.5, platelets 249. UA 15 to 20 red blood cells. BUN 21 and creatinine 1.2. ALT, AST, and alkaline phosphatase is overall unremarkable. Chest x-ray, unremarkable. CT of the brain showed right-sided mastoid and middle ear opacification, sinus disease. ASSESSMENT: The patient is a 39-year-old male with: 1. Right-sided mastoid and sinus disease and otitis media (coverage for Pseudomonas and possible MRSA), rule out brain abscess (history of altered level of consciousness). PLAN: 1. We will start the patient on IV Zosyn and vancomycin day #1. 2. Monitor CBC. 3. Monitor BMP. 4. Monitor cultures (blood, right ear drainage). 5. CT of the brain with contrast to rule out brain abscess. 6. Recommend ENT consultation. Based on the patient's clinical course and laboratories, we will do further recommendations. Munir Thompson M.D. DR: Michelle JOB#: [id number] CC:
[2019-10-14] VITALS: BP 152/80
[2019-10-14 04:00] VITALS: BP 141/69
[2019-10-14] MEDS: Piperacillin/Tazobactam 3.375 GM in NS 110 ML IVPB SCH ×3 (05:23→22:35)
[2019-10-14] MEDS: Morphine Sulfate 4mg/ml Inj (IV USE ONLY) IVP PRN ×3 (05:24→23:35)
[2019-10-14] MEDS: NovoLOG Insulin Flexpen SUBQ SCH ×4 (05:34→21:00)
--- NOTE | 2019-10-14 07:14 | Pulmonology Progress Note ---
Assessment/Plan Assessment/Plan ASSESSMENT Right mastoiditis with sinus disease and otitis media Symptomatic anemia Diabetes mellitus Hypertension Schizophrenia PLAN OF CARE tele Echo with pEF [address]% [address] head - no acute IC pathology, no evidence of brain abscess ; noted right mastoiditis with sinus disease and otitis media abx as per ID , fup with cx DVT, GI prophylaxis BS with SSI Meclizine symptomatically monitor H&H with goal to keep Hgb n above 7 fall precaution PT eval and treatment case discussed and evaluated by supervising physician Subjective Allergies: Coded Allergies: EGG (Verified Allergy, Unknown, 10/12/19) VENLAFAXINE (Verified Allergy, Unknown, 10/12/19) Subjective no fevers, no leucocytosis Objective Last 24 Hour Vital Signs Date Time Temp Pulse Resp B/P (MAP) Pulse Ox O2 Delivery O2 Flow Rate FiO2 10/14/19 00:00 98.2 88 18 152/80 (104) 97 10/14/19 00:00 71 10/14/19 00:00 2.0 10/13/19 21:48 82 150/84 10/13/19 21:00 Nasal Cannula 2.0 10/13/19 20:00 98.1 82 19 150/84 (106) 96 10/13/19 16:08 2.0 10/13/19 16:08 98.4 68 18 140/69 (92) 94 10/13/19 16:00 89 10/13/19 12:00 81 10/13/19 12:00 2.0 10/13/19 12:00 98.8 79 20 137/73 (94) 94 10/13/19 09:00 Nasal Cannula 2.0 10/13/19 08:00 98.2 78 18 141/86 (104) 97 Intake and Output 10/13/19 10/14/19 19:00 07:00 Intake Total 840 ml 100 ml Output Total 600 ml 1150 ml Balance 240 ml -1050 ml Intake Oral 840 ml Other 100 ml Output Urine Total 600 ml 1150 ml General Appearance: no acute distress HEENT: normocephalic, atraumatic, other - drainage from R ear, tenderness over R mastoid, R sinuses Respiratory/Chest: lungs clear, no respiratory distress Cardiovascular: normal rate Abdomen: soft, non tender Extremities: no edema Neurologic/Psychiatric: other - awake Musculoskeletal: normal muscle bulk Microbiology Date/Time Source Procedure Growth Status 10/12/19 20:20 Blood Blood Culture - Preliminary NO GROWTH AFTER 24 HOURS Resulted 10/12/19 20:15 Blood Blood Culture - Preliminary NO GROWTH AFTER 24 HOURS Resulted 10/12/19 15:15 Nasal Nares MRSA Culture - Final NO METHICILLIN RESISTANT STAPH AUREUS... Complete 10/12/19 15:15 Rectum Received Laboratory Tests 10/13/19 19:34: Troponin I 0.029 Current Medications Medications (Trade) Dose Ordered Sig/Yaima Route PRN Reason Start Time Stop Time Status Last Admin Dose Admin Acetaminophen (Tylenol) 650 mg Q4H PRN ORAL fever 10/12/19 17:15 11/11/19 17:14 10/12/19 17:53 Acetaminophen (Tylenol) 650 mg Q4H PRN ORAL Mild Pain (Pain Scale 1-3) 10/12/19 17:15 11/11/19 17:14 Aspirin (Ecotrin) 325 mg DAILY ORAL 10/13/19 09:00 11/12/19 08:59 10/13/19 08:43 Dextrose (Dextrose 50%) 25 ml Q30M PRN IV Hypoglycemia 10/12/19 17:30 11/11/19 17:29 Dextrose (Dextrose 50%) 50 ml Q30M PRN IV Hypoglycemia 10/12/19 17:30 11/11/19 17:29 Gabapentin (Neurontin) 300 mg BEDTIME ORAL 10/12/19 21:00 11/11/19 20:59 10/13/19 21:43 Heparin Sodium (Porcine) (Heparin 5000 units/ml) 5,000 units EVERY 12 HOURS SUBQ 10/12/19 21:00 11/11/19 20:59 10/13/19 21:46 Insulin Aspart (NovoLOG) BEFORE MEALS AND HS SUBQ 10/12/19 21:00 11/11/19 20:59 10/14/19 05:34 Lorazepam (Ativan) 1 mg Q4H PRN ORAL For Anxiety 10/12/19 17:15 10/19/19 17:14 Meclizine HCl (Antivert) 25 mg NOW PRN ORAL for dizziness 10/12/19 14:45 11/11/19 14:44 10/12/19 14:52 Metoprolol Tartrate (Lopressor) 25 mg EVERY 12 HOURS ORAL 10/13/19 21:00 11/12/19 20:59 10/13/19 21:48 Morphine Sulfate (Morphine Sulfate) 4 mg Q4H PRN IVP For Pain 10/14/19 01:15 10/21/19 01:14 10/14/19 05:24 Pantoprazole (Protonix) 40 mg DAILY ORAL 10/13/19 09:00 11/12/19 08:59 10/13/19 08:43 Piperacillin Sod/ Tazobactam Sod 3.375 gm/Sodium Chloride 110 ml @ 27.5 mls/hr Q8H IVPB 10/13/19 14:30 10/20/19 14:29 10/14/19 05:23 Quetiapine Fumarate (SEROqueL) 200 mg Q12HR ORAL 10/12/19 21:00 11/11/19 20:59 10/13/19 21:44 Vancomycin HCl (Vanco rx to dose) 1 ea DAILY PRN MISC Per rx protocol 10/13/19 13:15 11/12/19 13:14 Vancomycin/Sodium Chloride 275 ml @ 137.5 mls/ hr Q12H IVPB 10/13/19 19:00 10/18/19 18:59 10/13/19 19:06 Lin Robles NP Oct 14, 2019 07:14
[2019-10-14 08:00] VITALS: BP 141/78
[2019-10-14 08:00] LABS: BASOPHILS % (AUTO) 0.4 % (0.0-2.0); EOSINOPHILS % (AUTO) 3.4 % (0.0-3.0); HEMATOCRIT 24.2 % (42.0-52.0); HEMOGLOBIN 8.2 G/DL (14.2-18.0); LYMPHOCYTES % (AUTO) 29.2 % (20.0-45.0); MEAN CORPUSCULAR VOLUME 93 FL (80-99); MONOCYTES % (AUTO) 6.6 % (1.0-10.0); NEUTROPHILS % (AUTO) 60.4 % (45.0-75.0); PLATELET COUNT 308 K/UL (150-450); RED BLOOD COUNT 2.61 M/UL (4.70-6.10); RED CELL DISTRIBUTION WIDTH 11.3 % (11.6-14.8); WHITE BLOOD COUNT 6.6 K/UL (4.8-10.8)
[2019-10-14 08:43] LABS: CHOLESTEROL 100 MG/DL (< 200); HDL CHOLESTEROL 18 MG/DL (40-60); TRIGLYCERIDES 56 MG/DL (30-150)
[2019-10-14 08:44] LABS: ANION GAP 9 mmol/L (5-15); BLOOD UREA NITROGEN 13 mg/dL (7-18); CALCIUM 8.5 MG/DL (8.5-10.1); CARBON DIOXIDE 28 MMOL/L (21-32); CHLORIDE 109 MMOL/L (98-107); POTASSIUM 3.7 MMOL/L (3.5-5.1); SODIUM 146 MMOL/L (136-145)
[2019-10-14] MEDS: Heparin 5000 units/ml inj SUBQ SCH ×2 (09:15→22:38)
[2019-10-14] MEDS: QUEtiapine 200mg tab ORAL SCH ×2 (09:17→22:35)
[2019-10-14] MEDS: Aspirin EC 325mg tab ORAL SCH (09:17)
[2019-10-14] MEDS: Vancomycin 1.5gm/NS Premix IVPB SCH ×3 (10:25→22:00)
[2019-10-14 12:00] VITALS: BP 125/74
[2019-10-14] MEDS ORDERED: Tubing IV Secondary IV ONE (12:53)
--- NOTE | 2019-10-14 13:17 | Cardiac Electrophysiology PN ---
Assessment/Plan Assessment/Plan 1. Anterolateral ischemia on ECG. Echo Nl EF. Schedule stress test on Wednesday 2. HTN On Lopressor 25 bid 3. CHF Clinically Euvolume and EF normal. 4. Right ear otitis FU ENT and ID 5. Bipolar DW RN Subjective Subjective Alert in NAD. No CP or SOB. Objective Last 24 Hour Vital Signs Date Time Temp Pulse Resp B/P (MAP) Pulse Ox O2 Delivery O2 Flow Rate FiO2 10/14/19 12:00 68 10/14/19 12:00 2.0 10/14/19 12:00 98.0 70 20 125/74 (91) 95 10/14/19 09:16 71 141/78 10/14/19 09:00 Nasal Cannula 2.0 10/14/19 09:00 2.0 10/14/19 08:00 67 10/14/19 08:00 97.7 71 20 141/78 (99) 93 10/14/19 04:00 72 10/14/19 04:00 98.7 91 19 141/69 (93) 93 10/14/19 04:00 2.0 10/14/19 00:00 98.2 88 18 152/80 (104) 97 10/14/19 00:00 71 10/14/19 00:00 2.0 10/13/19 21:48 82 150/84 10/13/19 21:00 Nasal Cannula 2.0 10/13/19 20:00 83 10/13/19 20:00 98.1 82 19 150/84 (106) 96 10/13/19 16:08 2.0 10/13/19 16:08 98.4 68 18 140/69 (92) 94 10/13/19 16:00 89 Intake and Output 10/13/19 10/14/19 19:00 07:00 Intake Total 840 ml 100 ml Output Total 600 ml 1150 ml Balance 240 ml -1050 ml Intake Oral 840 ml Other 100 ml Output Urine Total 600 ml 1150 ml Laboratory Tests Test 10/13/19 19:34 10/14/19 06:30 Troponin I 0.029 ng/mL (0.000-0.056) 0.028 ng/mL (0.000-0.056) White Blood Count 6.6 K/UL (4.8-10.8) Red Blood Count 2.61 M/UL (4.70-6.10) L Hemoglobin 8.2 G/DL (14.2-18.0) L Hematocrit 24.2 % (42.0-52.0) L Mean Corpuscular Volume 93 FL (80-99) Mean Corpuscular Hemoglobin 31.3 PG (27.0-31.0) H Mean Corpuscular Hemoglobin Concent 33.9 G/DL (32.0-36.0) Red Cell Distribution Width 11.3 % (11.6-14.8) L Platelet Count 308 K/UL (150-450) Mean Platelet Volume 4.9 FL (6.5-10.1) L Neutrophils (%) (Auto) 60.4 % (45.0-75.0) Lymphocytes (%) (Auto) 29.2 % (20.0-45.0) Monocytes (%) (Auto) 6.6 % (1.0-10.0) Eosinophils (%) (Auto) 3.4 % (0.0-3.0) H Basophils (%) (Auto) 0.4 % (0.0-2.0) Sodium Level 146 MMOL/L (136-145) H Potassium Level 3.7 MMOL/L (3.5-5.1) Chloride Level 109 MMOL/L (98-107) H Carbon Dioxide Level 28 MMOL/L (21-32) Anion Gap 9 mmol/L (5-15) Blood Urea Nitrogen 13 mg/dL (7-18) Creatinine 1.0 MG/DL (0.55-1.30) Estimat Glomerular Filtration Rate > 60 mL/min (>60) Glucose Level 128 MG/DL (74-106) H Calcium Level 8.5 MG/DL (8.5-10.1) Triglycerides Level 56 MG/DL (30-150) Cholesterol Level 100 MG/DL (< 200) LDL Cholesterol 76 mg/dL (<100) HDL Cholesterol 18 MG/DL (40-60) L Cholesterol/HDL Ratio 5.6 (3.3-4.4) H Microbiology Date/Time Source Procedure Growth Status 10/12/19 20:20 Blood Blood Culture - Preliminary NO GROWTH AFTER 24 HOURS Resulted 10/12/19 20:15 Blood Blood Culture - Preliminary NO GROWTH AFTER 24 HOURS Resulted 10/12/19 15:15 Nasal Nares MRSA Culture - Final NO METHICILLIN RESISTANT STAPH AUREUS... Complete 10/12/19 15:15 Rectum - Final NO CARBAPENEM-RESISTANT ENTEROBACTERI... Complete 10/12/19 15:15 Rectum VRE Culture - Final NO VANCOMYCIN RESISTANT ENTEROCOCCUS ... Complete Objective HEENT: No JVD .Has drainage from the right ear, also appears to have tenderness over the right side of mastoid, right sinus, right maxilla and frontal sinuses. CHEST: Clear. HEART: S1 and S2. ABDOMEN: Soft and nontender. EXTREMITIES: No cyanosis. NEUROLOGIC: Awake. Lucas Bauer MD Oct 14, 2019 13:17
--- NOTE | 2019-10-14 14:02 | Internal Med Progress Note ---
Subjective Date of Service: Oct 14, 2019 Physician Name Jamarcus Varghese Attending Physician Robin Shin MD Current Medications Medications (Trade) Dose Ordered Sig/Yaima Route PRN Reason Start Time Stop Time Status Last Admin Dose Admin Acetaminophen (Tylenol) 650 mg Q4H PRN ORAL fever 10/12/19 17:15 11/11/19 17:14 10/12/19 17:53 Acetaminophen (Tylenol) 650 mg Q4H PRN ORAL Mild Pain (Pain Scale 1-3) 10/12/19 17:15 11/11/19 17:14 Aspirin (Ecotrin) 325 mg DAILY ORAL 10/13/19 09:00 11/12/19 08:59 10/14/19 09:17 Dextrose (Dextrose 50%) 25 ml Q30M PRN IV Hypoglycemia 10/12/19 17:30 11/11/19 17:29 Dextrose (Dextrose 50%) 50 ml Q30M PRN IV Hypoglycemia 10/12/19 17:30 11/11/19 17:29 Gabapentin (Neurontin) 300 mg BEDTIME ORAL 10/12/19 21:00 11/11/19 20:59 10/13/19 21:43 Heparin Sodium (Porcine) (Heparin 5000 units/ml) 5,000 units EVERY 12 HOURS SUBQ 10/12/19 21:00 11/11/19 20:59 10/14/19 09:15 Insulin Aspart (NovoLOG) BEFORE MEALS AND HS SUBQ 10/12/19 21:00 11/11/19 20:59 10/14/19 05:34 Lorazepam (Ativan) 1 mg Q4H PRN ORAL For Anxiety 10/12/19 17:15 10/19/19 17:14 Metoprolol Tartrate (Lopressor) 25 mg EVERY 12 HOURS ORAL 10/13/19 21:00 11/12/19 20:59 10/14/19 09:16 Morphine Sulfate (Morphine Sulfate) 4 mg Q4H PRN IVP For Pain 10/14/19 01:15 10/21/19 01:14 10/14/19 05:24 Pantoprazole (Protonix) 40 mg DAILY ORAL 10/13/19 09:00 11/12/19 08:59 10/14/19 09:16 Piperacillin Sod/ Tazobactam Sod 3.375 gm/Sodium Chloride 110 ml @ 27.5 mls/hr Q8H IVPB 10/13/19 14:30 10/20/19 14:29 10/14/19 05:23 Quetiapine Fumarate (SEROqueL) 200 mg Q12HR ORAL 10/12/19 21:00 11/11/19 20:59 10/14/19 09:17 Vancomycin HCl (Vanco rx to dose) 1 ea DAILY PRN MISC Per rx protocol 10/13/19 13:15 11/12/19 13:14 Vancomycin/Sodium Chloride 275 ml @ 137.5 mls/ hr Q12H IVPB 10/14/19 10:00 10/19/19 09:59 10/14/19 10:25 Allergies: Coded Allergies: EGG (Verified Allergy, Unknown, 10/12/19) VENLAFAXINE (Verified Allergy, Unknown, 10/12/19) ROS Limited/Unobtainable: No Constitutional: Reports: no symptoms HEENT: Reports: no symptoms Cardiovascular: Reports: no symptoms Respiratory: Reports: no symptoms Gastrointestinal/Abdominal: Reports: no symptoms Genitourinary: Reports: no symptoms Neurologic/Psychiatric: Reports: no symptoms Subjective 39 YO admitted with right headache. Now mastoiditis. Cover for Int Artem-Dr Shin Objective Last Vital Signs Date Time Temp Pulse Resp B/P (MAP) Pulse Ox O2 Delivery O2 Flow Rate FiO2 10/14/19 12:00 68 10/14/19 12:00 2.0 10/14/19 12:00 98.0 20 125/74 (91) 95 10/14/19 09:00 Nasal Cannula Laboratory Tests Test 10/13/19 19:34 10/14/19 06:30 Troponin I 0.029 ng/mL (0.000-0.056) 0.028 ng/mL (0.000-0.056) White Blood Count 6.6 K/UL (4.8-10.8) Red Blood Count 2.61 M/UL (4.70-6.10) L Hemoglobin 8.2 G/DL (14.2-18.0) L Hematocrit 24.2 % (42.0-52.0) L Mean Corpuscular Volume 93 FL (80-99) Mean Corpuscular Hemoglobin 31.3 PG (27.0-31.0) H Mean Corpuscular Hemoglobin Concent 33.9 G/DL (32.0-36.0) Red Cell Distribution Width 11.3 % (11.6-14.8) L Platelet Count 308 K/UL (150-450) Mean Platelet Volume 4.9 FL (6.5-10.1) L Neutrophils (%) (Auto) 60.4 % (45.0-75.0) Lymphocytes (%) (Auto) 29.2 % (20.0-45.0) Monocytes (%) (Auto) 6.6 % (1.0-10.0) Eosinophils (%) (Auto) 3.4 % (0.0-3.0) H Basophils (%) (Auto) 0.4 % (0.0-2.0) Sodium Level 146 MMOL/L (136-145) H Potassium Level 3.7 MMOL/L (3.5-5.1) Chloride Level 109 MMOL/L (98-107) H Carbon Dioxide Level 28 MMOL/L (21-32) Anion Gap 9 mmol/L (5-15) Blood Urea Nitrogen 13 mg/dL (7-18) Creatinine 1.0 MG/DL (0.55-1.30) Estimat Glomerular Filtration Rate > 60 mL/min (>60) Glucose Level 128 MG/DL (74-106) H Calcium Level 8.5 MG/DL (8.5-10.1) Triglycerides Level 56 MG/DL (30-150) Cholesterol Level 100 MG/DL (< 200) LDL Cholesterol 76 mg/dL (<100) HDL Cholesterol 18 MG/DL (40-60) L Cholesterol/HDL Ratio 5.6 (3.3-4.4) H Microbiology Date/Time Source Procedure Growth Status 10/12/19 20:20 Blood Blood Culture - Preliminary NO GROWTH AFTER 24 HOURS Resulted 10/12/19 20:15 Blood Blood Culture - Preliminary NO GROWTH AFTER 24 HOURS Resulted 10/12/19 15:15 Nasal Nares MRSA Culture - Final NO METHICILLIN RESISTANT STAPH AUREUS... Complete 10/12/19 15:15 Rectum - Final NO CARBAPENEM-RESISTANT ENTEROBACTERI... Complete 10/12/19 15:15 Rectum VRE Culture - Final NO VANCOMYCIN RESISTANT ENTEROCOCCUS ... Complete Intake and Output 10/13/19 10/14/19 19:00 07:00 Intake Total 840 ml 100 ml Output Total 600 ml 1150 ml Balance 240 ml -1050 ml Intake Oral 840 ml Other 100 ml Output Urine Total 600 ml 1150 ml Objective PHYSICAL EXAMINATION: GENERAL: The patient is well-developed and well-nourished male in no apparent distress. HEENT: Eyes, pupils are equal and responsive to light and accommodation. Extraocular movements are intact. NECK: Supple without lymphadenopathy. CHEST: Lungs are clear to auscultation bilaterally without wheezes or rales. CARDIOVASCULAR: Regular rate. S1 and S2 normal without murmurs, rubs, or gallops. ABDOMEN: Soft, nontender, nondistended. Positive bowel sounds. No evidence of hepatosplenomegaly. Currently, no rebound or guarding noted. EXTREMITIES: Negative for clubbing, cyanosis, or edema. RECTAL/GENITAL: Refused. NEUROLOGIC: Cranial nerves II through XII are grossly intact without focal deficits. Motor strength is 5/5 bilaterally. Deep tendon reflexes 2+ plantar. Assessment/Plan Assessment/Plan ASSESSMENT: This is a 39-year-old male. 1. Altered mental status. 2. Congestive heart failure. 3. Right-sided headache. 4. [place]. 5. Photophobia. 6. Bipolar disorder. 7. Schizophrenia. 8. Diabetes type 2. 9. Hypertension. 10. Mastoiditis TREATMENT: 1. Altered mental status. This may be secondary to acute cerebrovascular accident versus . The patient is currently not on antihyperglycemic medication. The patient has been started on a NovoLog sliding scale as his admission glucose is elevated. 2. Congestive heart failure. Cardiology consultation has been obtained with Dr. Lucas Bauer. We will follow recommendations of Cardiology. An echocardiogram is pending. 3. Right-sided headache. The patient will receive Tylenol as needed for headache. A CT scan of the brain in the emergency room failed to demonstrate acute intracranial bleed or mass effect. 4. Bipolar disorder/schizophrenia. Continue Seroquel as above. 5. Diabetes type 2. As above, the patient has been placed on NovoLog sliding scale. 6. Hypertension. The patient is currently off antihypertensive medications. 7. Sinusitis. Initial CT scan of the brain revealed right-sided mastoid and middle ear opacification. The patient has been started empirically on Levaquin. 8. ENT consult pending for mastoiditis 9. ABX=vanco and zosyn per ID=Jamarcus Anderson MD Oct 14, 2019 14:02
--- NOTE | 2019-10-14 15:42 | Infectious Diseases Prog Note ---
Assessment/Plan Assessment/Plan ASSESSMENT: The patient is a 39-year-old male with: 1. Right-sided mastoid and sinus disease and otitis media (coverage for Pseudomonas and possible MRSA), rule out brain abscess (history of altered level of consciousness). -head CT: Abnormal right temporal bone, with opacification of the right mastoid air cells, probably the middle ear cavity, and of the external auditory canal. Per discussion with referring physician, patient has evidence of otitis with pus coming out of the ear. In addition, there is slight indistinctness of the anterior margin of the temporal bone as compared to the left, which could indicate bony erosive changes.Consider further evaluation with temporal bone CT and/or MRI. No evidence of associated brain abscess. -Bcx NTD -ear cx p PLAN: 1. We will start the patient on IV Zosyn #3 and vancomycin day #2. 2. Monitor CBC. 3. Monitor BMP. 4. Monitor cultures (blood, right ear drainage). 5. Recommend ENT consultation. Diabetes. History of neuropathy. Hypertension. Bipolar disorder. Schizophrenia. History of back surgery due to the fall. Based on the patient's clinical course and laboratories, we will do further recommendations. Subjective Allergies: Coded Allergies: EGG (Verified Allergy, Unknown, 10/12/19) VENLAFAXINE (Verified Allergy, Unknown, 10/12/19) Subjective afebrile >36hrs no leukocytosis Objective Vital Signs Last 24 Hour Vital Signs Date Time Temp Pulse Resp B/P (MAP) Pulse Ox O2 Delivery O2 Flow Rate FiO2 10/14/19 12:00 68 10/14/19 12:00 2.0 10/14/19 12:00 98.0 70 20 125/74 (91) 95 10/14/19 09:16 71 141/78 10/14/19 09:00 Nasal Cannula 2.0 10/14/19 09:00 2.0 10/14/19 08:00 67 10/14/19 08:00 97.7 71 20 141/78 (99) 93 10/14/19 04:00 72 10/14/19 04:00 98.7 91 19 141/69 (93) 93 10/14/19 04:00 2.0 10/14/19 00:00 98.2 88 18 152/80 (104) 97 10/14/19 00:00 71 10/14/19 00:00 2.0 10/13/19 21:48 82 150/84 10/13/19 21:00 Nasal Cannula 2.0 10/13/19 20:00 83 10/13/19 20:00 98.1 82 19 150/84 (106) 96 10/13/19 16:08 2.0 10/13/19 16:08 98.4 68 18 140/69 (92) 94 10/13/19 16:00 89 Height (Feet): 5 Height (Inches): 6.00 Weight (Pounds): 209 Objective . HEENT: No pale conjunctivae. No icterus. The patient has drainage from the right ear, also appears to have tenderness over the right side of mastoid, right sinus, right maxilla and frontal sinuses. NECK: No lymphadenopathy CHEST: Clear. HEART: S1 and S2. ABDOMEN: Soft and nontender. EXTREMITIES: No cyanosis. NEUROLOGIC: Awake. Microbiology Date/Time Source Procedure Growth Status 10/12/19 20:20 Blood Blood Culture - Preliminary NO GROWTH AFTER 24 HOURS Resulted 10/12/19 20:15 Blood Blood Culture - Preliminary NO GROWTH AFTER 24 HOURS Resulted 10/12/19 15:15 Nasal Nares MRSA Culture - Final NO METHICILLIN RESISTANT STAPH AUREUS... Complete 10/12/19 15:15 Rectum - Final NO CARBAPENEM-RESISTANT ENTEROBACTERI... Complete 10/12/19 15:15 Rectum VRE Culture - Final NO VANCOMYCIN RESISTANT ENTEROCOCCUS ... Complete Laboratory Tests Test 10/13/19 19:34 10/14/19 06:30 Troponin I 0.029 ng/mL (0.000-0.056) 0.028 ng/mL (0.000-0.056) White Blood Count 6.6 K/UL (4.8-10.8) Red Blood Count 2.61 M/UL (4.70-6.10) L Hemoglobin 8.2 G/DL (14.2-18.0) L Hematocrit 24.2 % (42.0-52.0) L Mean Corpuscular Volume 93 FL (80-99) Mean Corpuscular Hemoglobin 31.3 PG (27.0-31.0) H Mean Corpuscular Hemoglobin Concent 33.9 G/DL (32.0-36.0) Red Cell Distribution Width 11.3 % (11.6-14.8) L Platelet Count 308 K/UL (150-450) Mean Platelet Volume 4.9 FL (6.5-10.1) L Neutrophils (%) (Auto) 60.4 % (45.0-75.0) Lymphocytes (%) (Auto) 29.2 % (20.0-45.0) Monocytes (%) (Auto) 6.6 % (1.0-10.0) Eosinophils (%) (Auto) 3.4 % (0.0-3.0) H Basophils (%) (Auto) 0.4 % (0.0-2.0) Sodium Level 146 MMOL/L (136-145) H Potassium Level 3.7 MMOL/L (3.5-5.1) Chloride Level 109 MMOL/L (98-107) H Carbon Dioxide Level 28 MMOL/L (21-32) Anion Gap 9 mmol/L (5-15) Blood Urea Nitrogen 13 mg/dL (7-18) Creatinine 1.0 MG/DL (0.55-1.30) Estimat Glomerular Filtration Rate > 60 mL/min (>60) Glucose Level 128 MG/DL (74-106) H Calcium Level 8.5 MG/DL (8.5-10.1) Triglycerides Level 56 MG/DL (30-150) Cholesterol Level 100 MG/DL (< 200) LDL Cholesterol 76 mg/dL (<100) HDL Cholesterol 18 MG/DL (40-60) L Cholesterol/HDL Ratio 5.6 (3.3-4.4) H Current Medications Medications (Trade) Dose Ordered Sig/Yaima Route PRN Reason Start Time Stop Time Status Last Admin Dose Admin Acetaminophen (Tylenol) 650 mg Q4H PRN ORAL fever 10/12/19 17:15 11/11/19 17:14 10/12/19 17:53 Acetaminophen (Tylenol) 650 mg Q4H PRN ORAL Mild Pain (Pain Scale 1-3) 10/12/19 17:15 11/11/19 17:14 Aspirin (Ecotrin) 325 mg DAILY ORAL 10/13/19 09:00 11/12/19 08:59 10/14/19 09:17 Dextrose (Dextrose 50%) 25 ml Q30M PRN IV Hypoglycemia 10/12/19 17:30 11/11/19 17:29 Dextrose (Dextrose 50%) 50 ml Q30M PRN IV Hypoglycemia 10/12/19 17:30 11/11/19 17:29 Gabapentin (Neurontin) 300 mg BEDTIME ORAL 10/12/19 21:00 11/11/19 20:59 10/13/19 21:43 Heparin Sodium (Porcine) (Heparin 5000 units/ml) 5,000 units EVERY 12 HOURS SUBQ 10/12/19 21:00 11/11/19 20:59 10/14/19 09:15 Insulin Aspart (NovoLOG) BEFORE MEALS AND HS SUBQ 10/12/19 21:00 11/11/19 20:59 10/14/19 05:34 Lorazepam (Ativan) 1 mg Q4H PRN ORAL For Anxiety 10/12/19 17:15 10/19/19 17:14 Metoprolol Tartrate (Lopressor) 25 mg EVERY 12 HOURS ORAL 10/13/19 21:00 11/12/19 20:59 10/14/19 09:16 Morphine Sulfate (Morphine Sulfate) 4 mg Q4H PRN IVP For Pain 10/14/19 01:15 10/21/19 01:14 10/14/19 05:24 Pantoprazole (Protonix) 40 mg DAILY ORAL 10/13/19 09:00 11/12/19 08:59 10/14/19 09:16 Piperacillin Sod/ Tazobactam Sod 3.375 gm/Sodium Chloride 110 ml @ 27.5 mls/hr Q8H IVPB 10/13/19 14:30 10/20/19 14:29 10/14/19 14:02 Quetiapine Fumarate (SEROqueL) 200 mg Q12HR ORAL 10/12/19 21:00 11/11/19 20:59 10/14/19 09:17 Vancomycin HCl (Vanco rx to dose) 1 ea DAILY PRN MISC Per rx protocol 10/13/19 13:15 11/12/19 13:14 Vancomycin/Sodium Chloride 275 ml @ 137.5 mls/ hr Q12H IVPB 10/14/19 10:00 10/19/19 09:59 10/14/19 10:25 Roxanne Yadav M.D. Oct 14, 2019 15:42
[2019-10-14 16:00] VITALS: BP 127/72
[2019-10-14 20:00] VITALS: BP 132/72
[2019-10-15] VITALS: BP 139/83
[2019-10-15 04:00] VITALS: BP 146/85
[2019-10-15] MEDS: NovoLOG Insulin Flexpen SUBQ SCH ×4 (05:40→21:00)
[2019-10-15] MEDS: Piperacillin/Tazobactam 3.375 GM in NS 110 ML IVPB SCH ×3 (05:44→22:13)
--- NOTE | 2019-10-15 07:42 | Pulmonology Progress Note ---
Assessment/Plan Assessment/Plan ASSESSMENT Right mastoiditis with sinus disease and otitis media Symptomatic anemia Diabetes mellitus Hypertension Schizophrenia PLAN OF CARE tele Echo with pEF [address]% [address] head - no acute IC pathology, no evidence of brain abscess ; noted right mastoiditis with sinus disease and otitis media abx as per ID , fup with cx BCX NGTD ; ear CX P DVT, GI prophylaxis BS with SSI Meclizine symptomatically monitor H&H with goal to keep Hgb n above 7 fall precaution PT eval and treatment case discussed and evaluated by supervising physician Subjective Allergies: Coded Allergies: EGG (Verified Allergy, Unknown, 10/12/19) VENLAFAXINE (Verified Allergy, Unknown, 10/12/19) Subjective no fevers, no leucocytosis no signs of resp distress Objective Last 24 Hour Vital Signs Date Time Temp Pulse Resp B/P (MAP) Pulse Ox O2 Delivery O2 Flow Rate FiO2 10/15/19 04:00 2.0 10/15/19 04:00 73 10/15/19 04:00 98.5 74 18 146/85 (105) 96 10/15/19 00:00 98.3 77 18 139/83 (101) 94 10/15/19 00:00 2.0 10/15/19 00:00 77 10/14/19 22:34 82 132/72 10/14/19 21:00 Nasal Cannula 2.0 10/14/19 20:00 80 10/14/19 20:00 97.7 82 18 132/72 (92) 94 10/14/19 16:00 98.8 80 20 127/72 (90) 96 10/14/19 16:00 68 10/14/19 16:00 2.0 10/14/19 12:00 68 10/14/19 12:00 2.0 10/14/19 12:00 98.0 70 20 125/74 (91) 95 10/14/19 09:16 71 141/78 10/14/19 09:00 Nasal Cannula 2.0 10/14/19 09:00 2.0 10/14/19 08:00 67 10/14/19 08:00 97.7 71 20 141/78 (99) 93 Intake and Output 10/14/19 10/15/19 19:00 07:00 Intake Total 1080 ml Output Total 900 ml Balance 180 ml Intake Oral 1080 ml Output Urine Total 900 ml # Voids 2 Objective General Appearance: no acute distress HEENT: normocephalic, atraumatic, drainage from R ear, tenderness over R mastoid, R sinuses Respiratory/Chest: lungs clear, no respiratory distress Cardiovascular: normal rate Abdomen: soft, non tender Extremities: no edema Neurologic/Psychiatric: awake Musculoskeletal: normal muscle bulk Microbiology Date/Time Source Procedure Growth Status 10/12/19 20:20 Blood Blood Culture - Preliminary NO GROWTH AFTER 48 HOURS Resulted 10/12/19 20:15 Blood Blood Culture - Preliminary NO GROWTH AFTER 48 HOURS Resulted 10/12/19 15:15 Nasal Nares MRSA Culture - Final NO METHICILLIN RESISTANT STAPH AUREUS... Complete 10/13/19 15:40 Ear Right Ear Culture - Preliminary Resulted 10/12/19 15:15 Rectum - Final NO CARBAPENEM-RESISTANT ENTEROBACTERI... Complete 10/12/19 15:15 Rectum VRE Culture - Final NO VANCOMYCIN RESISTANT ENTEROCOCCUS ... Complete Laboratory Tests 10/14/19 20:05: Troponin I 0.022 Current Medications Medications (Trade) Dose Ordered Sig/Yaima Route PRN Reason Start Time Stop Time Status Last Admin Dose Admin Acetaminophen (Tylenol) 650 mg Q4H PRN ORAL fever 10/12/19 17:15 11/11/19 17:14 10/12/19 17:53 Acetaminophen (Tylenol) 650 mg Q4H PRN ORAL Mild Pain (Pain Scale 1-3) 10/12/19 17:15 11/11/19 17:14 Aspirin (Ecotrin) 325 mg DAILY ORAL 10/13/19 09:00 11/12/19 08:59 10/14/19 09:17 Dextrose (Dextrose 50%) 25 ml Q30M PRN IV Hypoglycemia 10/12/19 17:30 11/11/19 17:29 Dextrose (Dextrose 50%) 50 ml Q30M PRN IV Hypoglycemia 10/12/19 17:30 11/11/19 17:29 Gabapentin (Neurontin) 300 mg BEDTIME ORAL 10/12/19 21:00 11/11/19 20:59 10/14/19 22:35 Heparin Sodium (Porcine) (Heparin 5000 units/ml) 5,000 units EVERY 12 HOURS SUBQ 10/12/19 21:00 11/11/19 20:59 10/14/19 22:38 Insulin Aspart (NovoLOG) BEFORE MEALS AND HS SUBQ 10/12/19 21:00 11/11/19 20:59 10/14/19 05:34 Lorazepam (Ativan) 1 mg Q4H PRN ORAL For Anxiety 10/12/19 17:15 10/19/19 17:14 Metoprolol Tartrate (Lopressor) 25 mg EVERY 12 HOURS ORAL 10/13/19 21:00 11/12/19 20:59 10/14/19 22:34 Morphine Sulfate (Morphine Sulfate) 4 mg Q4H PRN IVP For Pain 10/14/19 01:15 10/21/19 01:14 10/14/19 23:35 Pantoprazole (Protonix) 40 mg DAILY ORAL 10/13/19 09:00 11/12/19 08:59 10/14/19 09:16 Piperacillin Sod/ Tazobactam Sod 3.375 gm/Sodium Chloride 110 ml @ 27.5 mls/hr Q8H IVPB 10/13/19 14:30 10/20/19 14:29 10/15/19 05:44 Quetiapine Fumarate (SEROqueL) 200 mg Q12HR ORAL 10/12/19 21:00 11/11/19 20:59 10/14/19 22:35 Vancomycin HCl (Vanco rx to dose) 1 ea DAILY PRN MISC Per rx protocol 10/13/19 13:15 11/12/19 13:14 Vancomycin/Sodium Chloride 275 ml @ 137.5 mls/ hr Q12H IVPB 10/14/19 10:00 10/19/19 09:59 10/14/19 22:00 Lin Robles NP Oct 15, 2019 07:42
[2019-10-15 08:00] VITALS: BP 127/73
[2019-10-15] MEDS ORDERED: Miralax 17gm pkt ORAL PRN (08:00)
[2019-10-15] MEDS ORDERED: Miralax 17gm pkt ORAL SCH (08:15)
[2019-10-15] MEDS: Heparin 5000 units/ml inj SUBQ SCH ×2 (09:00→21:06)
[2019-10-15] MEDS: Aspirin EC 325mg tab ORAL SCH (09:02)
[2019-10-15] MEDS: Docusate 100mg cap ORAL SCH ×2 (09:02→18:46)
[2019-10-15] MEDS: QUEtiapine 200mg tab ORAL SCH ×2 (09:02→21:05)
[2019-10-15] MEDS ORDERED: NS 275ml ONE (09:13)
[2019-10-15] MEDS ORDERED: Tubing IV Secondary IV ONE (09:13)
[2019-10-15 09:49] LABS: BASOPHILS % (AUTO) 0.3 % (0.0-2.0); EOSINOPHILS % (AUTO) 3.1 % (0.0-3.0); LYMPHOCYTES % (AUTO) 16.8 % (20.0-45.0); MEAN CORPUSCULAR VOLUME 92 FL (80-99); MONOCYTES % (AUTO) 5.9 % (1.0-10.0); NEUTROPHILS % (AUTO) 73.9 % (45.0-75.0); PLATELET COUNT 293 K/UL (150-450); RED BLOOD COUNT 2.83 M/UL (4.70-6.10); RED CELL DISTRIBUTION WIDTH 11.2 % (11.6-14.8); WHITE BLOOD COUNT 7.2 K/UL (4.8-10.8)
[2019-10-15 10:11] LABS: ANION GAP 7 mmol/L (5-15); BLOOD UREA NITROGEN 15 mg/dL (7-18); CALCIUM 8.8 MG/DL (8.5-10.1); CARBON DIOXIDE 31 MMOL/L (21-32); CHLORIDE 105 MMOL/L (98-107); POTASSIUM 3.9 MMOL/L (3.5-5.1); SODIUM 143 MMOL/L (136-145)
[2019-10-15 10:17] LABS: CREATININE 1.1 MG/DL (0.55-1.30)
[2019-10-15] MEDS: Vancomycin 1.5gm/NS Premix IVPB SCH ×2 (11:00→21:06)
[2019-10-15 12:00] VITALS: BP 112/58
--- NOTE | 2019-10-15 12:40 | Cardiac Electrophysiology PN ---
Assessment/Plan Assessment/Plan 1. Anterolateral ischemia on ECG. Echo Nl EF. Schedule stress test on Wednesday 2. HTN On Lopressor 25 bid 3. CHF Clinically Euvolemic and EF normal. 4. Right ear otitis FU ENT and ID 5. Bipolar DW RN Subjective Subjective Alert in NAD. No CP or SOB. No arrhythmias on tele Objective Last 24 Hour Vital Signs Date Time Temp Pulse Resp B/P (MAP) Pulse Ox O2 Delivery O2 Flow Rate FiO2 10/15/19 09:03 73 127/73 10/15/19 08:37 Nasal Cannula 2.0 10/15/19 08:00 97.8 73 20 127/73 (91) 95 10/15/19 07:51 72 10/15/19 04:00 2.0 10/15/19 04:00 73 10/15/19 04:00 98.5 74 18 146/85 (105) 96 10/15/19 00:00 98.3 77 18 139/83 (101) 94 10/15/19 00:00 2.0 10/15/19 00:00 77 10/14/19 22:34 82 132/72 10/14/19 21:00 Nasal Cannula 2.0 10/14/19 20:00 80 10/14/19 20:00 97.7 82 18 132/72 (92) 94 10/14/19 16:00 98.8 80 20 127/72 (90) 96 10/14/19 16:00 68 10/14/19 16:00 2.0 Intake and Output 10/14/19 10/15/19 19:00 07:00 Intake Total 1080 ml Output Total 900 ml Balance 180 ml Intake Oral 1080 ml Output Urine Total 900 ml # Voids 2 Laboratory Tests Test 10/14/19 20:05 10/15/19 09:20 Troponin I 0.022 ng/mL (0.000-0.056) White Blood Count 7.2 K/UL (4.8-10.8) Red Blood Count 2.83 M/UL (4.70-6.10) L Hemoglobin 9.0 G/DL (14.2-18.0) L Hematocrit 26.0 % (42.0-52.0) L Mean Corpuscular Volume 92 FL (80-99) Mean Corpuscular Hemoglobin 31.7 PG (27.0-31.0) H Mean Corpuscular Hemoglobin Concent 34.6 G/DL (32.0-36.0) Red Cell Distribution Width 11.2 % (11.6-14.8) L Platelet Count 293 K/UL (150-450) Mean Platelet Volume 5.0 FL (6.5-10.1) L Neutrophils (%) (Auto) 73.9 % (45.0-75.0) Lymphocytes (%) (Auto) 16.8 % (20.0-45.0) L Monocytes (%) (Auto) 5.9 % (1.0-10.0) Eosinophils (%) (Auto) 3.1 % (0.0-3.0) H Basophils (%) (Auto) 0.3 % (0.0-2.0) Sodium Level 143 MMOL/L (136-145) Potassium Level 3.9 MMOL/L (3.5-5.1) Chloride Level 105 MMOL/L (98-107) Carbon Dioxide Level 31 MMOL/L (21-32) Anion Gap 7 mmol/L (5-15) Blood Urea Nitrogen 15 mg/dL (7-18) Creatinine 1.1 MG/DL (0.55-1.30) Estimat Glomerular Filtration Rate > 60 mL/min (>60) Glucose Level 166 MG/DL (74-106) H Calcium Level 8.8 MG/DL (8.5-10.1) Vancomycin Level Trough 16.1 ug/mL (5.0-12.0) H Microbiology Date/Time Source Procedure Growth Status 10/12/19 20:20 Blood Blood Culture - Preliminary NO GROWTH AFTER 48 HOURS Resulted 10/12/19 20:15 Blood Blood Culture - Preliminary NO GROWTH AFTER 48 HOURS Resulted 10/12/19 15:15 Nasal Nares MRSA Culture - Final NO METHICILLIN RESISTANT STAPH AUREUS... Complete 10/13/19 15:40 Ear Right Ear Culture - Preliminary Resulted 10/12/19 15:15 Rectum - Final NO CARBAPENEM-RESISTANT ENTEROBACTERI... Complete 10/12/19 15:15 Rectum VRE Culture - Final NO VANCOMYCIN RESISTANT ENTEROCOCCUS ... Complete Objective HEENT: No JVD .Has drainage from the right ear, also appears to have tenderness over the right side of mastoid, right sinus, right maxilla and frontal sinuses. CHEST: Clear. HEART: S1 and S2. ABDOMEN: Soft and nontender. EXTREMITIES: No cyanosis. NEUROLOGIC: Awake. Luacs Bauer MD Oct 15, 2019 12:40
[2019-10-15] MEDS ORDERED: Lexiscan 0.4mg/5ml syringe IV PRN (12:45)
--- NOTE | 2019-10-15 12:53 | Internal Med Progress Note ---
Subjective Date of Service: Oct 15, 2019 Physician Name Jamarcus Varghese Attending Physician Robin Shin MD Current Medications Medications (Trade) Dose Ordered Sig/Yaima Route PRN Reason Start Time Stop Time Status Last Admin Dose Admin Acetaminophen (Tylenol) 650 mg Q4H PRN ORAL fever 10/12/19 17:15 11/11/19 17:14 10/12/19 17:53 Acetaminophen (Tylenol) 650 mg Q4H PRN ORAL Mild Pain (Pain Scale 1-3) 10/12/19 17:15 11/11/19 17:14 Aspirin (Ecotrin) 325 mg DAILY ORAL 10/13/19 09:00 11/12/19 08:59 10/15/19 09:02 Dextrose (Dextrose 50%) 25 ml Q30M PRN IV Hypoglycemia 10/12/19 17:30 11/11/19 17:29 Dextrose (Dextrose 50%) 50 ml Q30M PRN IV Hypoglycemia 10/12/19 17:30 11/11/19 17:29 Docusate Sodium (Colace) 100 mg TWICE A DAY ORAL 10/15/19 09:00 11/14/19 08:59 10/15/19 09:02 Gabapentin (Neurontin) 300 mg BEDTIME ORAL 10/12/19 21:00 11/11/19 20:59 10/14/19 22:35 Heparin Sodium (Porcine) (Heparin 5000 units/ml) 5,000 units EVERY 12 HOURS SUBQ 10/12/19 21:00 11/11/19 20:59 10/14/19 22:38 Insulin Aspart (NovoLOG) BEFORE MEALS AND HS SUBQ 10/12/19 21:00 11/11/19 20:59 10/14/19 05:34 Lorazepam (Ativan) 1 mg Q4H PRN ORAL For Anxiety 10/12/19 17:15 10/19/19 17:14 Metoprolol Tartrate (Lopressor) 25 mg EVERY 12 HOURS ORAL 10/13/19 21:00 11/12/19 20:59 10/15/19 09:03 Morphine Sulfate (Morphine Sulfate) 4 mg Q4H PRN IVP For Pain 10/14/19 01:15 10/21/19 01:14 10/14/19 23:35 Pantoprazole (Protonix) 40 mg DAILY ORAL 10/13/19 09:00 11/12/19 08:59 10/15/19 09:02 Piperacillin Sod/ Tazobactam Sod 3.375 gm/Sodium Chloride 110 ml @ 27.5 mls/hr Q8H IVPB 10/13/19 14:30 10/20/19 14:29 10/15/19 05:44 Polyethylene Glycol (Miralax) 17 gm BEDTIME ORAL 10/15/19 21:00 11/14/19 20:59 Polyethylene Glycol (Miralax) 17 gm DAILY PRN ORAL Constipation 10/15/19 08:00 11/14/19 07:59 Quetiapine Fumarate (SEROqueL) 200 mg Q12HR ORAL 10/12/19 21:00 11/11/19 20:59 10/15/19 09:02 Regadenoson (Lexiscan) 0.4 mg ONCE PRN IV stress test 10/15/19 12:45 10/17/19 12:44 Vancomycin HCl (Vanco rx to dose) 1 ea DAILY PRN MISC Per rx protocol 10/13/19 13:15 11/12/19 13:14 Vancomycin/Sodium Chloride 275 ml @ 137.5 mls/ hr Q12H IVPB 10/14/19 10:00 10/19/19 09:59 10/15/19 11:00 Allergies: Coded Allergies: EGG (Verified Allergy, Unknown, 10/12/19) VENLAFAXINE (Verified Allergy, Unknown, 10/12/19) ROS Limited/Unobtainable: No Constitutional: Reports: no symptoms HEENT: Reports: no symptoms Cardiovascular: Reports: no symptoms Respiratory: Reports: no symptoms Gastrointestinal/Abdominal: Reports: no symptoms Genitourinary: Reports: no symptoms Neurologic/Psychiatric: Reports: no symptoms Subjective 39 YO admitted with right headache. Now mastoiditis. Cover for Int Artem-Dr Shin. Await ENT consult Objective Last Vital Signs Date Time Temp Pulse Resp B/P (MAP) Pulse Ox O2 Delivery O2 Flow Rate FiO2 10/15/19 11:46 71 10/15/19 09:03 127/73 10/15/19 08:37 Nasal Cannula 2.0 10/15/19 08:00 97.8 20 95 Laboratory Tests Test 10/14/19 20:05 10/15/19 09:20 Troponin I 0.022 ng/mL (0.000-0.056) White Blood Count 7.2 K/UL (4.8-10.8) Red Blood Count 2.83 M/UL (4.70-6.10) L Hemoglobin 9.0 G/DL (14.2-18.0) L Hematocrit 26.0 % (42.0-52.0) L Mean Corpuscular Volume 92 FL (80-99) Mean Corpuscular Hemoglobin 31.7 PG (27.0-31.0) H Mean Corpuscular Hemoglobin Concent 34.6 G/DL (32.0-36.0) Red Cell Distribution Width 11.2 % (11.6-14.8) L Platelet Count 293 K/UL (150-450) Mean Platelet Volume 5.0 FL (6.5-10.1) L Neutrophils (%) (Auto) 73.9 % (45.0-75.0) Lymphocytes (%) (Auto) 16.8 % (20.0-45.0) L Monocytes (%) (Auto) 5.9 % (1.0-10.0) Eosinophils (%) (Auto) 3.1 % (0.0-3.0) H Basophils (%) (Auto) 0.3 % (0.0-2.0) Sodium Level 143 MMOL/L (136-145) Potassium Level 3.9 MMOL/L (3.5-5.1) Chloride Level 105 MMOL/L (98-107) Carbon Dioxide Level 31 MMOL/L (21-32) Anion Gap 7 mmol/L (5-15) Blood Urea Nitrogen 15 mg/dL (7-18) Creatinine 1.1 MG/DL (0.55-1.30) Estimat Glomerular Filtration Rate > 60 mL/min (>60) Glucose Level 166 MG/DL (74-106) H Calcium Level 8.8 MG/DL (8.5-10.1) Vancomycin Level Trough 16.1 ug/mL (5.0-12.0) H Microbiology Date/Time Source Procedure Growth Status 10/12/19 20:20 Blood Blood Culture - Preliminary NO GROWTH AFTER 48 HOURS Resulted 10/12/19 20:15 Blood Blood Culture - Preliminary NO GROWTH AFTER 48 HOURS Resulted 10/12/19 15:15 Nasal Nares MRSA Culture - Final NO METHICILLIN RESISTANT STAPH AUREUS... Complete 10/13/19 15:40 Ear Right Ear Culture - Preliminary Resulted 10/12/19 15:15 Rectum - Final NO CARBAPENEM-RESISTANT ENTEROBACTERI... Complete 10/12/19 15:15 Rectum VRE Culture - Final NO VANCOMYCIN RESISTANT ENTEROCOCCUS ... Complete Intake and Output 10/14/19 10/15/19 19:00 07:00 Intake Total 1080 ml Output Total 900 ml Balance 180 ml Intake Oral 1080 ml Output Urine Total 900 ml # Voids 2 Objective PHYSICAL EXAMINATION: GENERAL: The patient is well-developed and well-nourished male in no apparent distress. HEENT: Eyes, pupils are equal and responsive to light and accommodation. Extraocular movements are intact. NECK: Supple without lymphadenopathy. CHEST: Lungs are clear to auscultation bilaterally without wheezes or rales. CARDIOVASCULAR: Regular rate. S1 and S2 normal without murmurs, rubs, or gallops. ABDOMEN: Soft, nontender, nondistended. Positive bowel sounds. No evidence of hepatosplenomegaly. Currently, no rebound or guarding noted. EXTREMITIES: Negative for clubbing, cyanosis, or edema. RECTAL/GENITAL: Refused. NEUROLOGIC: Cranial nerves II through XII are grossly intact without focal deficits. Motor strength is 5/5 bilaterally. Deep tendon reflexes 2+ plantar. Assessment/Plan Assessment/Plan ASSESSMENT: This is a 39-year-old male. 1. Altered mental status. 2. Congestive heart failure. 3. Right-sided headache. 4. Scotoma. 5. Photophobia. 6. Bipolar disorder. 7. Schizophrenia. 8. Diabetes type 2. 9. Hypertension. 10. Mastoiditis 11. Otitis Media TREATMENT: 1. Altered mental status. 2. Congestive heart failure. Cardiology consultation has been obtained with Dr. Lucas Bauer. We will follow recommendations of Cardiology. An echocardiogram is pending. 3. Right-sided headache. The patient will receive Tylenol as needed for headache. A CT scan of the brain in the emergency room failed to demonstrate acute intracranial bleed or mass effect. 4. Bipolar disorder/schizophrenia. Continue Seroquel as above. 5. Diabetes type 2. As above, the patient has been placed on NovoLog sliding scale. 6. Hypertension. The patient is currently off antihypertensive medications. 7. Sinusitis. Initial CT scan of the brain revealed right-sided mastoid and middle ear opacification. The patient has been started empirically on Levaquin. 8. ENT consult pending for mastoiditis 9. ABX=vanco and zosyn per ID=Jamarcus Anderson MD Oct 15, 2019 12:53
[2019-10-15 16:00] VITALS: BP 113/74
[2019-10-15 20:00] VITALS: BP 144/87
[2019-10-15] MEDS: Miralax 17gm pkt ORAL SCH (21:05)
[2019-10-15] MEDS: Morphine Sulfate 4mg/ml Inj (IV USE ONLY) IVP PRN (21:25)
[2019-10-16] VITALS: BP 116/60
[2019-10-16 04:00] VITALS: BP 125/68
[2019-10-16] MEDS: Piperacillin/Tazobactam 3.375 GM in NS 110 ML IVPB SCH ×3 (06:07→22:15)
[2019-10-16] MEDS: NovoLOG Insulin Flexpen SUBQ SCH ×4 (06:09→21:00)
--- NOTE | 2019-10-16 07:30 | Consultation ---
DATE OF CONSULTATION: 10/13/2019 CARDIOLOGY CONSULTATION CONSULTING PHYSICIAN: Lucas Bauer M.D. REFERRING PHYSICIAN: Robin Shin M.D. REASON FOR CONSULTATION: Management of hypertension and congestive heart failure. HISTORY OF PRESENT ILLNESS: The patient is a 39-year-old gentleman [facility] with a history of diabetes who was brought in for right ear pain. The patient also his eyes are closed. The patient has been closing . The patient could not respond. The patient was unable to get out of bed and was transferred to [facility], was admitted for altered mental status to rule out acute CVAs. The patient also stated that he has a history of and a Cardiology consultation was obtained for further evaluation. REVIEW OF SYSTEMS: Review of systems was negative other than what is mentioned in the history of present illness. PAST MEDICAL HISTORY: 1. Type 2 diabetes, but not on any diabetic medication. 2. Hypertension. 3. Bipolar disorder. 4. Schizophrenia. 5. Neuropathy. PAST SURGICAL HISTORY: Includes history of back surgery due to fall and injury. MEDICATIONS: Gabapentin and Seroquel. ALLERGIES: He is allergic to Effexor. SOCIAL HISTORY: He is single. He lives [facility]. He smokes 1-1/2 packs of cigarettes a day. Denies drinking alcohol or using drugs. PHYSICAL EXAMINATION: VITAL SIGNS: Show blood pressure of 140/69, pulse 68, respiratory rate 18, and temperature 98.4. HEAD AND NECK: Shows no JVD or carotid bruit. LUNGS: Clear. CARDIOVASCULAR: Shows regular S1 and S2 with no gallop or murmur. ABDOMEN: Soft. EXTREMITIES: No pitting edema. The patient has 1+ pitting edema. LABORATORY DATA: Labs show white count of 6.8, hemoglobin of 8.5, hematocrit 25, and platelet count was 249,000. Sodium 142, potassium 4.0, BUN of 21, creatinine 1.2, and glucose of 144. BNP 1738. Troponin negative x2. Urine toxicology screen is negative. INR is 1. ASSESSMENT AND PLAN: 1. Shortness of breath and abnormal EKG, rule out ischemia. Troponins are otherwise negative. on aspirin and beta-aaron. We will check a lipid profile. 2. History of enlarged heart and congestive heart failure. Echocardiogram showed ejection fraction of 55% to 60%. 3. History of depression and schizophrenia. 4. Right ear drainage. Further evaluation by ENT. 5. History of anemia. Thank you very much for allowing me to participate in the care of this patient. Please do not hesitate to contact me for any questions regarding my evaluation. Lucas Bauer M.D. DR: NAVI JOB#: [id number] CC:
[2019-10-16 07:55] LABS: BASOPHILS % (AUTO) 0.3 % (0.0-2.0); EOSINOPHILS % (AUTO) 4.2 % (0.0-3.0); HEMOGLOBIN 9.1 G/DL (14.2-18.0); LYMPHOCYTES % (AUTO) 16.8 % (20.0-45.0); MEAN CORPUSCULAR VOLUME 92 FL (80-99); MONOCYTES % (AUTO) 5.6 % (1.0-10.0); NEUTROPHILS % (AUTO) 73.2 % (45.0-75.0); PLATELET COUNT 331 K/UL (150-450); RED BLOOD COUNT 2.84 M/UL (4.70-6.10); RED CELL DISTRIBUTION WIDTH 11.4 % (11.6-14.8); WHITE BLOOD COUNT 8.2 K/UL (4.8-10.8)
[2019-10-16 08:00] VITALS: BP 129/76
[2019-10-16 08:09] LABS: ANION GAP 7 mmol/L (5-15); BLOOD UREA NITROGEN 14 mg/dL (7-18); CALCIUM 8.7 MG/DL (8.5-10.1); CARBON DIOXIDE 30 MMOL/L (21-32); CHLORIDE 105 MMOL/L (98-107); POTASSIUM 3.9 MMOL/L (3.5-5.1); SODIUM 142 MMOL/L (136-145)
[2019-10-16] MEDS: QUEtiapine 200mg tab ORAL SCH ×2 (08:48→21:00)
[2019-10-16] MEDS: Aspirin EC 325mg tab ORAL SCH (08:49)
[2019-10-16] MEDS: Docusate 100mg cap ORAL SCH ×2 (08:49→17:12)
[2019-10-16] MEDS: Heparin 5000 units/ml inj SUBQ SCH ×2 (08:51→22:16)
[2019-10-16] MEDS: Vancomycin 1.5gm/NS Premix IVPB SCH ×2 (09:36→22:15)
--- NOTE | 2019-10-16 10:28 | Infectious Diseases Prog Note ---
Assessment/Plan Assessment/Plan ASSESSMENT: The patient is a 39-year-old male with: 1. Right-sided mastoid and sinus disease and otitis media (coverage for Pseudomonas and possible MRSA), -head CT: Abnormal right temporal bone, with opacification of the right mastoid air cells, probably the middle ear cavity, and of the external auditory canal. Per discussion with referring physician, patient has evidence of otitis with pus coming out of the ear. In addition, there is slight indistinctness of the anterior margin of the temporal bone as compared to the left, which could indicate bony erosive changes.Consider further evaluation with temporal bone CT and/or MRI. No evidence of associated brain abscess. -Bcx NTD -ear cx Staph and Strep Diabetes. History of neuropathy. Hypertension. Bipolar disorder. Schizophrenia. History of back surgery due to the fall PLAN: 1. We will start the patient on IV Zosyn # 5 and vancomycin day #24 2. Monitor CBC. 3. Monitor BMP. 4. Monitor cultures (blood, right ear drainage). 5. Recommend ENT consultation. Based on the patient's clinical course and laboratories, we will do further recommendations. Subjective Allergies: Coded Allergies: EGG (Verified Allergy, Unknown, 10/12/19) VENLAFAXINE (Verified Allergy, Unknown, 10/12/19) Subjective comfortable Objective Vital Signs Last 24 Hour Vital Signs Date Time Temp Pulse Resp B/P (MAP) Pulse Ox O2 Delivery O2 Flow Rate FiO2 10/16/19 09:00 Nasal Cannula 2.0 10/16/19 08:59 78 129/76 10/16/19 08:00 98.2 78 20 129/76 (93) 96 10/16/19 07:45 74 10/16/19 04:00 74 10/16/19 04:00 98.1 80 16 125/68 (87) 95 10/16/19 00:00 72 10/16/19 00:00 98.2 77 15 116/60 (78) 95 10/15/19 21:05 84 144/87 10/15/19 21:00 Nasal Cannula 2.0 10/15/19 20:00 98.1 84 16 144/87 (106) 96 10/15/19 20:00 81 10/15/19 16:00 97.3 68 18 113/74 (87) 94 10/15/19 15:50 71 10/15/19 12:00 97.7 81 20 112/58 (76) 100 10/15/19 11:46 71 Height (Feet): 5 Height (Inches): 6.00 Weight (Pounds): 209 Respiratory/Chest: normal breath sounds Cardiovascular: normal rate Abdomen: no organomegaly Microbiology Date/Time Source Procedure Growth Status 10/13/19 15:40 Ear Right Ear Culture - Preliminary Staphylococcus Aureus Strep Species, Beta Hemolytic Diphtheroids Resulted Laboratory Tests Test 10/16/19 06:23 White Blood Count 8.2 K/UL (4.8-10.8) Red Blood Count 2.84 M/UL (4.70-6.10) L Hemoglobin 9.1 G/DL (14.2-18.0) L Hematocrit 26.0 % (42.0-52.0) L Mean Corpuscular Volume 92 FL (80-99) Mean Corpuscular Hemoglobin 32.1 PG (27.0-31.0) H Mean Corpuscular Hemoglobin Concent 35.1 G/DL (32.0-36.0) Red Cell Distribution Width 11.4 % (11.6-14.8) L Platelet Count 331 K/UL (150-450) Mean Platelet Volume 4.6 FL (6.5-10.1) L Neutrophils (%) (Auto) 73.2 % (45.0-75.0) Lymphocytes (%) (Auto) 16.8 % (20.0-45.0) L Monocytes (%) (Auto) 5.6 % (1.0-10.0) Eosinophils (%) (Auto) 4.2 % (0.0-3.0) H Basophils (%) (Auto) 0.3 % (0.0-2.0) Sodium Level 142 MMOL/L (136-145) Potassium Level 3.9 MMOL/L (3.5-5.1) Chloride Level 105 MMOL/L (98-107) Carbon Dioxide Level 30 MMOL/L (21-32) Anion Gap 7 mmol/L (5-15) Blood Urea Nitrogen 14 mg/dL (7-18) Creatinine 1.0 MG/DL (0.55-1.30) Estimat Glomerular Filtration Rate > 60 mL/min (>60) Glucose Level 129 MG/DL (74-106) H Calcium Level 8.7 MG/DL (8.5-10.1) Current Medications Medications (Trade) Dose Ordered Sig/Yaima Route PRN Reason Start Time Stop Time Status Last Admin Dose Admin Acetaminophen (Tylenol) 650 mg Q4H PRN ORAL fever 10/12/19 17:15 11/11/19 17:14 10/12/19 17:53 Acetaminophen (Tylenol) 650 mg Q4H PRN ORAL Mild Pain (Pain Scale 1-3) 10/12/19 17:15 11/11/19 17:14 Aspirin (Ecotrin) 325 mg DAILY ORAL 10/13/19 09:00 11/12/19 08:59 10/16/19 08:49 Dextrose (Dextrose 50%) 25 ml Q30M PRN IV Hypoglycemia 10/12/19 17:30 11/11/19 17:29 Dextrose (Dextrose 50%) 50 ml Q30M PRN IV Hypoglycemia 10/12/19 17:30 11/11/19 17:29 Docusate Sodium (Colace) 100 mg TWICE A DAY ORAL 10/15/19 09:00 11/14/19 08:59 10/16/19 08:49 Gabapentin (Neurontin) 300 mg BEDTIME ORAL 10/12/19 21:00 11/11/19 20:59 10/15/19 21:05 Heparin Sodium (Porcine) (Heparin 5000 units/ml) 5,000 units EVERY 12 HOURS SUBQ 10/12/19 21:00 11/11/19 20:59 10/16/19 08:51 Insulin Aspart (NovoLOG) BEFORE MEALS AND HS SUBQ 10/12/19 21:00 11/11/19 20:59 10/16/19 06:09 Lorazepam (Ativan) 1 mg Q4H PRN ORAL For Anxiety 10/12/19 17:15 10/19/19 17:14 Metoprolol Tartrate (Lopressor) 25 mg EVERY 12 HOURS ORAL 10/13/19 21:00 11/12/19 20:59 10/15/19 21:05 Morphine Sulfate (Morphine Sulfate) 4 mg Q4H PRN IVP For Pain 10/14/19 01:15 10/21/19 01:14 10/15/19 21:25 Pantoprazole (Protonix) 40 mg DAILY ORAL 10/13/19 09:00 11/12/19 08:59 10/16/19 08:48 Piperacillin Sod/ Tazobactam Sod 3.375 gm/Sodium Chloride 110 ml @ 27.5 mls/hr Q8H IVPB 10/13/19 14:30 10/20/19 14:29 10/16/19 06:07 Polyethylene Glycol (Miralax) 17 gm BEDTIME ORAL 10/15/19 21:00 11/14/19 20:59 10/15/19 21:05 Polyethylene Glycol (Miralax) 17 gm DAILY PRN ORAL Constipation 10/15/19 08:00 11/14/19 07:59 Quetiapine Fumarate (SEROqueL) 200 mg Q12HR ORAL 10/12/19 21:00 11/11/19 20:59 10/16/19 08:48 Regadenoson (Lexiscan) 0.4 mg ONCE PRN IV stress test 10/15/19 12:45 10/17/19 12:44 Vancomycin HCl (Vanco rx to dose) 1 ea DAILY PRN MISC Per rx protocol 10/13/19 13:15 11/12/19 13:14 Vancomycin/Sodium Chloride 275 ml @ 137.5 mls/ hr Q12H IVPB 10/14/19 10:00 10/19/19 09:59 10/16/19 09:36 Munir Thompson MD Oct 16, 2019 10:28
--- NOTE | 2019-10-16 11:55 | Pulmonology Progress Note ---
Assessment/Plan Problems: (1) Otitis (2) Schizophrenia (3) Symptomatic anemia Assessment/Plan Right-sided mastoid and middle ear opacification. Sinus disease. 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 stress testing ordered anemia w/u in progress afebrile, continue abx. Subjective ROS Limited/Unobtainable: No Constitutional: Reports: no symptoms HEENT: Repors: no symptoms Respiratory: Reports: no symptoms Allergies: Coded Allergies: EGG (Verified Allergy, Unknown, 10/12/19) VENLAFAXINE (Verified Allergy, Unknown, 10/12/19) Objective Last 24 Hour Vital Signs Date Time Temp Pulse Resp B/P (MAP) Pulse Ox O2 Delivery O2 Flow Rate FiO2 10/16/19 09:00 Nasal Cannula 2.0 10/16/19 08:59 78 129/76 10/16/19 08:00 98.2 78 20 129/76 (93) 96 10/16/19 07:45 74 10/16/19 04:00 74 10/16/19 04:00 98.1 80 16 125/68 (87) 95 10/16/19 00:00 72 10/16/19 00:00 98.2 77 15 116/60 (78) 95 10/15/19 21:05 84 144/87 10/15/19 21:00 Nasal Cannula 2.0 10/15/19 20:00 98.1 84 16 144/87 (106) 96 10/15/19 20:00 81 10/15/19 16:00 97.3 68 18 113/74 (87) 94 10/15/19 15:50 71 10/15/19 12:00 97.7 81 20 112/58 (76) 100 Intake and Output 10/15/19 10/16/19 19:00 07:00 Intake Total 600 ml 745.0 ml Output Total 1500 ml 250 ml Balance -900 ml 495.0 ml Intake Oral 600 ml 360 ml IV Total 385.0 ml Output Urine Total 1500 ml 250 ml # Voids 2 4 # Bowel Movements 1 General Appearance: WD/WN HEENT: normocephalic, atraumatic Respiratory/Chest: chest wall non-tender, lungs clear Cardiovascular: normal peripheral pulses, normal rate, regular rhythm Abdomen: normal bowel sounds, soft, non tender Genitourinary: normal external genitalia Extremities: no clubbing 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 Microbiology Date/Time Source Procedure Growth Status 10/13/19 15:40 Ear Right Ear Culture - Preliminary Staphylococcus Aureus Strep Species, Beta Hemolytic Diphtheroids Resulted Laboratory Tests 10/16/19 06:23: White Blood Count 8.2, Red Blood Count 2.84L, Hemoglobin 9.1L, Hematocrit 26.0L , Mean Corpuscular Volume 92, Mean Corpuscular Hemoglobin 32.1H, Mean Corpuscular Hemoglobin Concent 35.1, Red Cell Distribution Width 11.4L, Platelet Count 331, Mean Platelet Volume 4.6L, Neutrophils (%) (Auto) 73.2, Lymphocytes (%) (Auto) 16.8L, Monocytes (%) (Auto) 5.6, Eosinophils (%) (Auto) 4.2H, Basophils (%) (Auto) 0.3, Sodium Level 142, Potassium Level 3.9, Chloride Level 105, Carbon Dioxide Level 30, Anion Gap 7, Blood Urea Nitrogen 14, Creatinine 1.0, Estimat Glomerular Filtration Rate > 60, Glucose Level 129H, Calcium Level 8.7 Current Medications Medications (Trade) Dose Ordered Sig/Yaima Route PRN Reason Start Time Stop Time Status Last Admin Dose Admin Acetaminophen (Tylenol) 650 mg Q4H PRN ORAL fever 10/12/19 17:15 11/11/19 17:14 10/12/19 17:53 Acetaminophen (Tylenol) 650 mg Q4H PRN ORAL Mild Pain (Pain Scale 1-3) 10/12/19 17:15 11/11/19 17:14 Aspirin (Ecotrin) 325 mg DAILY ORAL 10/13/19 09:00 11/12/19 08:59 10/16/19 08:49 Dextrose (Dextrose 50%) 25 ml Q30M PRN IV Hypoglycemia 10/12/19 17:30 11/11/19 17:29 Dextrose (Dextrose 50%) 50 ml Q30M PRN IV Hypoglycemia 10/12/19 17:30 11/11/19 17:29 Docusate Sodium (Colace) 100 mg TWICE A DAY ORAL 10/15/19 09:00 11/14/19 08:59 10/16/19 08:49 Gabapentin (Neurontin) 300 mg BEDTIME ORAL 10/12/19 21:00 11/11/19 20:59 10/15/19 21:05 Heparin Sodium (Porcine) (Heparin 5000 units/ml) 5,000 units EVERY 12 HOURS SUBQ 10/12/19 21:00 11/11/19 20:59 10/16/19 08:51 Insulin Aspart (NovoLOG) BEFORE MEALS AND HS SUBQ 10/12/19 21:00 11/11/19 20:59 10/16/19 06:09 Lorazepam (Ativan) 1 mg Q4H PRN ORAL For Anxiety 10/12/19 17:15 10/19/19 17:14 Metoprolol Tartrate (Lopressor) 25 mg EVERY 12 HOURS ORAL 10/13/19 21:00 11/12/19 20:59 10/15/19 21:05 Morphine Sulfate (Morphine Sulfate) 4 mg Q4H PRN IVP For Pain 10/14/19 01:15 10/21/19 01:14 10/15/19 21:25 Pantoprazole (Protonix) 40 mg DAILY ORAL 10/13/19 09:00 11/12/19 08:59 10/16/19 08:48 Piperacillin Sod/ Tazobactam Sod 3.375 gm/Sodium Chloride 110 ml @ 27.5 mls/hr Q8H IVPB 10/13/19 14:30 10/20/19 14:29 10/16/19 06:07 Polyethylene Glycol (Miralax) 17 gm BEDTIME ORAL 10/15/19 21:00 11/14/19 20:59 10/15/19 21:05 Polyethylene Glycol (Miralax) 17 gm DAILY PRN ORAL Constipation 10/15/19 08:00 11/14/19 07:59 Quetiapine Fumarate (SEROqueL) 200 mg Q12HR ORAL 10/12/19 21:00 11/11/19 20:59 10/16/19 08:48 Regadenoson (Lexiscan) 0.4 mg ONCE PRN IV stress test 10/15/19 12:45 10/17/19 12:44 Vancomycin HCl (Vanco rx to dose) 1 ea DAILY PRN MISC Per rx protocol 10/13/19 13:15 11/12/19 13:14 Vancomycin/Sodium Chloride 275 ml @ 137.5 mls/ hr Q12H IVPB 10/14/19 10:00 10/19/19 09:59 10/16/19 09:36 Kati Gamble MD Oct 16, 2019 11:55
[2019-10-16 12:00] VITALS: BP 123/84
--- NOTE | 2019-10-16 13:58 | Cardiac Electrophysiology PN ---
Assessment/Plan Assessment/Plan 1. Inferolateral ischemia on 2 separate ECGs. Echo Nl EF.No CP Will reschedule stress test when stable from psych perspective 2. HTN On Lopressor 25 bid 3. CHF Clinically Euvolemic and EF normal. 4. Right ear otitis FU ENT and ID 5. Bipolar DW RN Subjective Subjective Alert in NAD. No CP or SOB. No arrhythmias on tele. Stress test today was cancelled by Dr. Cooley Objective Last 24 Hour Vital Signs Date Time Temp Pulse Resp B/P (MAP) Pulse Ox O2 Delivery O2 Flow Rate FiO2 10/16/19 12:23 77 10/16/19 12:00 98.6 82 20 123/84 (97) 95 10/16/19 09:00 Nasal Cannula 2.0 10/16/19 08:59 78 129/76 10/16/19 08:00 98.2 78 20 129/76 (93) 96 10/16/19 07:45 74 10/16/19 04:00 74 10/16/19 04:00 98.1 80 16 125/68 (87) 95 10/16/19 00:00 72 10/16/19 00:00 98.2 77 15 116/60 (78) 95 10/15/19 21:05 84 144/87 10/15/19 21:00 Nasal Cannula 2.0 10/15/19 20:00 98.1 84 16 144/87 (106) 96 10/15/19 20:00 81 10/15/19 16:00 97.3 68 18 113/74 (87) 94 10/15/19 15:50 71 Intake and Output 10/15/19 10/16/19 19:00 07:00 Intake Total 600 ml 745.0 ml Output Total 1500 ml 250 ml Balance -900 ml 495.0 ml Intake Oral 600 ml 360 ml IV Total 385.0 ml Output Urine Total 1500 ml 250 ml # Voids 2 4 # Bowel Movements 1 Laboratory Tests Test 10/16/19 06:23 White Blood Count 8.2 K/UL (4.8-10.8) Red Blood Count 2.84 M/UL (4.70-6.10) L Hemoglobin 9.1 G/DL (14.2-18.0) L Hematocrit 26.0 % (42.0-52.0) L Mean Corpuscular Volume 92 FL (80-99) Mean Corpuscular Hemoglobin 32.1 PG (27.0-31.0) H Mean Corpuscular Hemoglobin Concent 35.1 G/DL (32.0-36.0) Red Cell Distribution Width 11.4 % (11.6-14.8) L Platelet Count 331 K/UL (150-450) Mean Platelet Volume 4.6 FL (6.5-10.1) L Neutrophils (%) (Auto) 73.2 % (45.0-75.0) Lymphocytes (%) (Auto) 16.8 % (20.0-45.0) L Monocytes (%) (Auto) 5.6 % (1.0-10.0) Eosinophils (%) (Auto) 4.2 % (0.0-3.0) H Basophils (%) (Auto) 0.3 % (0.0-2.0) Sodium Level 142 MMOL/L (136-145) Potassium Level 3.9 MMOL/L (3.5-5.1) Chloride Level 105 MMOL/L (98-107) Carbon Dioxide Level 30 MMOL/L (21-32) Anion Gap 7 mmol/L (5-15) Blood Urea Nitrogen 14 mg/dL (7-18) Creatinine 1.0 MG/DL (0.55-1.30) Estimat Glomerular Filtration Rate > 60 mL/min (>60) Glucose Level 129 MG/DL (74-106) H Calcium Level 8.7 MG/DL (8.5-10.1) Microbiology Date/Time Source Procedure Growth Status 10/13/19 15:40 Ear Right Ear Culture - Preliminary Staphylococcus Aureus Strep Species, Beta Hemolytic Diphtheroids Resulted Objective HEENT: No JVD .Has drainage from the right ear, also appears to have tenderness over the right side of mastoid, right sinus, right maxilla and frontal sinuses. CHEST: Clear. HEART: S1 and S2. ABDOMEN: Soft and nontender. EXTREMITIES: No cyanosis. NEUROLOGIC: Awake. Lucas Bauer MD Oct 16, 2019 13:58
[2019-10-16 16:00] VITALS: BP 122/69
--- NOTE | 2019-10-16 19:06 | Internal Med Progress Note ---
Subjective Date of Service: Oct 16, 2019 Physician Name Jamarcus Varghese Attending Physician Robin Shin MD Current Medications Medications (Trade) Dose Ordered Sig/Yaima Route PRN Reason Start Time Stop Time Status Last Admin Dose Admin Acetaminophen (Tylenol) 650 mg Q4H PRN ORAL fever 10/12/19 17:15 11/11/19 17:14 10/12/19 17:53 Acetaminophen (Tylenol) 650 mg Q4H PRN ORAL Mild Pain (Pain Scale 1-3) 10/12/19 17:15 11/11/19 17:14 Aspirin (Ecotrin) 325 mg DAILY ORAL 10/13/19 09:00 11/12/19 08:59 10/16/19 08:49 Dextrose (Dextrose 50%) 25 ml Q30M PRN IV Hypoglycemia 10/12/19 17:30 11/11/19 17:29 Dextrose (Dextrose 50%) 50 ml Q30M PRN IV Hypoglycemia 10/12/19 17:30 11/11/19 17:29 Docusate Sodium (Colace) 100 mg TWICE A DAY ORAL 10/15/19 09:00 11/14/19 08:59 10/16/19 17:12 Gabapentin (Neurontin) 300 mg BEDTIME ORAL 10/12/19 21:00 11/11/19 20:59 10/15/19 21:05 Heparin Sodium (Porcine) (Heparin 5000 units/ml) 5,000 units EVERY 12 HOURS SUBQ 10/12/19 21:00 11/11/19 20:59 10/16/19 08:51 Insulin Aspart (NovoLOG) BEFORE MEALS AND HS SUBQ 10/12/19 21:00 11/11/19 20:59 10/16/19 06:09 Lorazepam (Ativan) 1 mg Q4H PRN ORAL For Anxiety 10/12/19 17:15 10/19/19 17:14 Metoprolol Tartrate (Lopressor) 25 mg EVERY 12 HOURS ORAL 10/13/19 21:00 11/12/19 20:59 10/15/19 21:05 Morphine Sulfate (Morphine Sulfate) 4 mg Q4H PRN IVP For Pain 10/14/19 01:15 10/21/19 01:14 10/15/19 21:25 Pantoprazole (Protonix) 40 mg DAILY ORAL 10/13/19 09:00 11/12/19 08:59 10/16/19 08:48 Piperacillin Sod/ Tazobactam Sod 3.375 gm/Sodium Chloride 110 ml @ 27.5 mls/hr Q8H IVPB 10/13/19 14:30 10/20/19 14:29 10/16/19 14:27 Polyethylene Glycol (Miralax) 17 gm BEDTIME ORAL 10/15/19 21:00 11/14/19 20:59 10/15/19 21:05 Polyethylene Glycol (Miralax) 17 gm DAILY PRN ORAL Constipation 10/15/19 08:00 11/14/19 07:59 Quetiapine Fumarate (SEROqueL) 200 mg Q12HR ORAL 10/12/19 21:00 11/11/19 20:59 10/16/19 08:48 Regadenoson (Lexiscan) 0.4 mg ONCE PRN IV stress test 10/15/19 12:45 10/17/19 12:44 Vancomycin HCl (Vanco rx to dose) 1 ea DAILY PRN MISC Per rx protocol 10/13/19 13:15 11/12/19 13:14 Vancomycin/Sodium Chloride 275 ml @ 137.5 mls/ hr Q12H IVPB 10/14/19 10:00 10/19/19 09:59 10/16/19 09:36 Allergies: Coded Allergies: EGG (Verified Allergy, Unknown, 10/12/19) VENLAFAXINE (Verified Allergy, Unknown, 10/12/19) ROS Limited/Unobtainable: No Constitutional: Reports: no symptoms HEENT: Reports: no symptoms Cardiovascular: Reports: no symptoms Respiratory: Reports: no symptoms Gastrointestinal/Abdominal: Reports: no symptoms Genitourinary: Reports: no symptoms Neurologic/Psychiatric: Reports: no symptoms Subjective 39 YO admitted with right headache. Now mastoiditis. Cover for Int Artem-Dr Shin. Await ENT consult Objective Last Vital Signs Date Time Temp Pulse Resp B/P (MAP) Pulse Ox O2 Delivery O2 Flow Rate FiO2 10/16/19 16:00 98.2 75 20 122/69 (86) 94 10/16/19 09:00 Nasal Cannula 2.0 Laboratory Tests Test 10/16/19 06:23 White Blood Count 8.2 K/UL (4.8-10.8) Red Blood Count 2.84 M/UL (4.70-6.10) L Hemoglobin 9.1 G/DL (14.2-18.0) L Hematocrit 26.0 % (42.0-52.0) L Mean Corpuscular Volume 92 FL (80-99) Mean Corpuscular Hemoglobin 32.1 PG (27.0-31.0) H Mean Corpuscular Hemoglobin Concent 35.1 G/DL (32.0-36.0) Red Cell Distribution Width 11.4 % (11.6-14.8) L Platelet Count 331 K/UL (150-450) Mean Platelet Volume 4.6 FL (6.5-10.1) L Neutrophils (%) (Auto) 73.2 % (45.0-75.0) Lymphocytes (%) (Auto) 16.8 % (20.0-45.0) L Monocytes (%) (Auto) 5.6 % (1.0-10.0) Eosinophils (%) (Auto) 4.2 % (0.0-3.0) H Basophils (%) (Auto) 0.3 % (0.0-2.0) Sodium Level 142 MMOL/L (136-145) Potassium Level 3.9 MMOL/L (3.5-5.1) Chloride Level 105 MMOL/L (98-107) Carbon Dioxide Level 30 MMOL/L (21-32) Anion Gap 7 mmol/L (5-15) Blood Urea Nitrogen 14 mg/dL (7-18) Creatinine 1.0 MG/DL (0.55-1.30) Estimat Glomerular Filtration Rate > 60 mL/min (>60) Glucose Level 129 MG/DL (74-106) H Calcium Level 8.7 MG/DL (8.5-10.1) Intake and Output 10/15/19 10/16/19 19:00 07:00 Intake Total 600 ml 745.0 ml Output Total 1500 ml 250 ml Balance -900 ml 495.0 ml Intake Oral 600 ml 360 ml IV Total 385.0 ml Output Urine Total 1500 ml 250 ml # Voids 2 4 # Bowel Movements 1 Objective PHYSICAL EXAMINATION: GENERAL: The patient is well-developed and well-nourished male in no apparent distress. HEENT: Eyes, pupils are equal and responsive to light and accommodation. Extraocular movements are intact. NECK: Supple without lymphadenopathy. CHEST: Lungs are clear to auscultation bilaterally without wheezes or rales. CARDIOVASCULAR: Regular rate. S1 and S2 normal without murmurs, rubs, or gallops. ABDOMEN: Soft, nontender, nondistended. Positive bowel sounds. No evidence of hepatosplenomegaly. Currently, no rebound or guarding noted. EXTREMITIES: Negative for clubbing, cyanosis, or edema. RECTAL/GENITAL: Refused. NEUROLOGIC: Cranial nerves II through XII are grossly intact without focal deficits. Motor strength is 5/5 bilaterally. Deep tendon reflexes 2+ plantar. Assessment/Plan Assessment/Plan ASSESSMENT: This is a 39-year-old male. 1. Altered mental status. 2. Congestive heart failure. 3. Right-sided headache. 4. [place]. 5. Photophobia. 6. Bipolar disorder. 7. Schizophrenia. 8. Diabetes type 2. 9. Hypertension. 10. Mastoiditis 11. Otitis Media TREATMENT: 1. Altered mental status. 2. Congestive heart failure. Cardiology consultation has been obtained with Dr. Lucas Bauer. We will follow recommendations of Cardiology. An echocardiogram is pending. 3. Right-sided headache. The patient will receive Tylenol as needed for headache. A CT scan of the brain in the emergency room failed to demonstrate acute intracranial bleed or mass effect. 4. Bipolar disorder/schizophrenia. Continue Seroquel as above. 5. Diabetes type 2. As above, the patient has been placed on NovoLog sliding scale. 6. Hypertension. The patient is currently off antihypertensive medications. 7. Sinusitis. Initial CT scan of the brain revealed right-sided mastoid and middle ear opacification. The patient has been started empirically on Levaquin. 8. ENT consult pending for mastoiditis 9. ABX=vanco and zosyn per ID=Jamarcus Anderson MD Oct 16, 2019 19:06
[2019-10-16 20:00] VITALS: BP 126/61
[2019-10-16] MEDS: Miralax 17gm pkt ORAL SCH (21:00)
[2019-10-16] MEDS: Morphine Sulfate 4mg/ml Inj (IV USE ONLY) IVP PRN (22:35)
[2019-10-17] VITALS: BP 128/67
[2019-10-17 04:00] VITALS: BP 129/78
[2019-10-17] MEDS: NovoLOG Insulin Flexpen SUBQ SCH ×4 (06:19→21:00)
[2019-10-17] MEDS: Piperacillin/Tazobactam 3.375 GM in NS 110 ML IVPB SCH ×2 (06:20→15:14)
[2019-10-17 07:14] LABS: BASOPHILS % (AUTO) 0.6 % (0.0-2.0); EOSINOPHILS % (AUTO) 6.5 % (0.0-3.0); HEMATOCRIT 27.7 % (42.0-52.0); HEMOGLOBIN 9.6 G/DL (14.2-18.0); LYMPHOCYTES % (AUTO) 17.4 % (20.0-45.0); MEAN CORPUSCULAR VOLUME 92 FL (80-99); MONOCYTES % (AUTO) 7.4 % (1.0-10.0); NEUTROPHILS % (AUTO) 68.1 % (45.0-75.0); PLATELET COUNT 321 K/UL (150-450); RED CELL DISTRIBUTION WIDTH 11.7 % (11.6-14.8); WHITE BLOOD COUNT 7.6 K/UL (4.8-10.8)
[2019-10-17 07:37] LABS: ANION GAP 3 mmol/L (5-15); BLOOD UREA NITROGEN 16 mg/dL (7-18); CALCIUM 8.5 MG/DL (8.5-10.1); CARBON DIOXIDE 31 MMOL/L (21-32); CHLORIDE 107 MMOL/L (98-107); CREATININE 1.1 MG/DL (0.55-1.30); POTASSIUM 4.4 MMOL/L (3.5-5.1); SODIUM 141 MMOL/L (136-145)
[2019-10-17 07:55] LABS: LACTATE DEHYDROGENASE 153 U/L (81-234)
[2019-10-17 08:00] VITALS: BP 147/56
[2019-10-17 08:17] LABS: % IRON SATURATION 40 % (15-50); IRON 58 ug/dL (50-175); TOTAL IRON BINDING CAPACITY 145 ug/dL (250-450)
[2019-10-17] MEDS: Docusate 100mg cap ORAL SCH ×2 (08:53→17:36)
[2019-10-17] MEDS: QUEtiapine 200mg tab ORAL SCH ×2 (08:53→20:53)
[2019-10-17] MEDS: Aspirin EC 325mg tab ORAL SCH (08:54)
[2019-10-17] MEDS: Heparin 5000 units/ml inj SUBQ SCH ×2 (08:58→20:56)
[2019-10-17] MEDS: Vancomycin 1.5gm/NS Premix IVPB SCH (10:07)
--- NOTE | 2019-10-17 10:47 | Cardiac Electrophysiology PN ---
Assessment/Plan Assessment/Plan 1. Inferolateral ischemia on 2 separate ECGs in a patient with HTN and Meth use. Echo Nl EF.No CP Will reschedule stress test today. 2. HTN On Lopressor 25 bid 3. CHF Clinically Euvolemic and EF normal. 4. Right ear otitis FU ENT and ID 5. Bipolar DW RN and Subjective Subjective Alert in NAD. No CP or SOB. No arrhythmias on tele. Stress test was cancelled by Dr. Cooley yesterday. NPO again for stress test today Objective Last 24 Hour Vital Signs Date Time Temp Pulse Resp B/P (MAP) Pulse Ox O2 Delivery O2 Flow Rate FiO2 10/17/19 08:54 84 141/56 10/17/19 08:00 97.6 84 16 147/56 (86) 94 10/17/19 04:00 98.2 74 16 129/78 (95) 95 10/17/19 04:00 74 10/17/19 00:00 98.3 78 16 128/67 (87) 96 10/17/19 00:00 78 10/16/19 21:00 81 129/74 10/16/19 21:00 Nasal Cannula 2.0 10/16/19 20:00 98.5 83 18 126/61 (82) 95 10/16/19 20:00 83 10/16/19 16:00 98.2 75 20 122/69 (86) 94 10/16/19 15:31 76 10/16/19 12:23 77 10/16/19 12:00 98.6 82 20 123/84 (97) 95 Intake and Output 10/16/19 10/17/19 19:00 07:00 Intake Total 1027.0 ml 480 ml Output Total 1000 ml Balance 27.0 ml 480 ml Intake Oral 532 ml 480 ml IV Total 495.0 ml Output Urine Total 1000 ml # Voids 4 4 Laboratory Tests Test 10/17/19 06:24 White Blood Count 7.6 K/UL (4.8-10.8) Red Blood Count 3.00 M/UL (4.70-6.10) L Hemoglobin 9.6 G/DL (14.2-18.0) L Hematocrit 27.7 % (42.0-52.0) L Mean Corpuscular Volume 92 FL (80-99) Mean Corpuscular Hemoglobin 31.9 PG (27.0-31.0) H Mean Corpuscular Hemoglobin Concent 34.5 G/DL (32.0-36.0) Red Cell Distribution Width 11.7 % (11.6-14.8) Platelet Count 321 K/UL (150-450) Mean Platelet Volume 4.7 FL (6.5-10.1) L Neutrophils (%) (Auto) 68.1 % (45.0-75.0) Lymphocytes (%) (Auto) 17.4 % (20.0-45.0) L Monocytes (%) (Auto) 7.4 % (1.0-10.0) Eosinophils (%) (Auto) 6.5 % (0.0-3.0) H Basophils (%) (Auto) 0.6 % (0.0-2.0) Erythrocyte Sedimentation Rate Pending Reticulocyte Count Pending Prothrombin Time 10.3 SEC (9.30-11.50) Prothromb Time International Ratio 1.0 (0.9-1.1) Activated Partial Thromboplast Time 26 SEC (23-33) Sodium Level 141 MMOL/L (136-145) Potassium Level 4.4 MMOL/L (3.5-5.1) Chloride Level 107 MMOL/L (98-107) Carbon Dioxide Level 31 MMOL/L (21-32) Anion Gap 3 mmol/L (5-15) L Blood Urea Nitrogen 16 mg/dL (7-18) Creatinine 1.1 MG/DL (0.55-1.30) Estimat Glomerular Filtration Rate > 60 mL/min (>60) Glucose Level 110 MG/DL (74-106) H Calcium Level 8.5 MG/DL (8.5-10.1) Iron Level 58 ug/dL (50-175) Total Iron Binding Capacity 145 ug/dL (250-450) L Percent Iron Saturation 40 % (15-50) Unsaturated Iron Binding 87 ug/dL (112-346) L Lactate Dehydrogenase 153 U/L (81-234) Carcinoembryonic Antigen Pending Vitamin B12 Level 236 PG/ML (193-986) Folate 14.8 NG/ML (8.6-58.9) Objective HEENT: No JVD .Has drainage from the right ear, also appears to have tenderness over the right side of mastoid, right sinus, right maxilla and frontal sinuses. CHEST: Clear. HEART: S1 and S2. ABDOMEN: Soft and nontender. EXTREMITIES: No cyanosis. NEUROLOGIC: Awake. Lucas Bauer MD Oct 17, 2019 10:47
[2019-10-17] MEDS ORDERED: Lexiscan 0.4mg/5ml syringe IV PRN (11:00)
--- NOTE | 2019-10-17 11:54 | Pulmonology Progress Note ---
Assessment/Plan Problems: (1) Otitis (2) Schizophrenia (3) Symptomatic anemia Assessment/Plan Right-sided mastoid and middle ear opacification. Sinus disease. 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 continue abx as per ID stress testing ordered anemia w/u in progress afebrile, continue abx. Subjective ROS Limited/Unobtainable: No Constitutional: Reports: no symptoms HEENT: Repors: no symptoms Respiratory: Reports: no symptoms Allergies: Coded Allergies: EGG (Verified Allergy, Unknown, 10/12/19) VENLAFAXINE (Verified Allergy, Unknown, 10/12/19) Objective Last 24 Hour Vital Signs Date Time Temp Pulse Resp B/P (MAP) Pulse Ox O2 Delivery O2 Flow Rate FiO2 10/17/19 09:00 Nasal Cannula 2.0 10/17/19 08:54 84 141/56 10/17/19 08:00 97.6 84 16 147/56 (86) 94 10/17/19 08:00 84 10/17/19 04:00 98.2 74 16 129/78 (95) 95 10/17/19 04:00 74 10/17/19 00:00 98.3 78 16 128/67 (87) 96 10/17/19 00:00 78 10/16/19 21:00 81 129/74 10/16/19 21:00 Nasal Cannula 2.0 10/16/19 20:00 98.5 83 18 126/61 (82) 95 10/16/19 20:00 83 10/16/19 16:00 98.2 75 20 122/69 (86) 94 10/16/19 15:31 76 10/16/19 12:23 77 10/16/19 12:00 98.6 82 20 123/84 (97) 95 Intake and Output 10/16/19 10/17/19 19:00 07:00 Intake Total 1027.0 ml 480 ml Output Total 1000 ml Balance 27.0 ml 480 ml Intake Oral 532 ml 480 ml IV Total 495.0 ml Output Urine Total 1000 ml # Voids 4 4 General Appearance: WD/WN HEENT: normocephalic, atraumatic Respiratory/Chest: chest wall non-tender, lungs clear Cardiovascular: normal peripheral pulses, normal rate Abdomen: normal bowel sounds, soft, non tender Laboratory Tests 10/17/19 06:24: White Blood Count 7.6, Red Blood Count 3.00L, Hemoglobin 9.6L, Hematocrit 27.7L , Mean Corpuscular Volume 92, Mean Corpuscular Hemoglobin 31.9H, Mean Corpuscular Hemoglobin Concent 34.5, Red Cell Distribution Width 11.7, Platelet Count 321, Mean Platelet Volume 4.7L, Neutrophils (%) (Auto) 68.1, Lymphocytes ( %) (Auto) 17.4L, Monocytes (%) (Auto) 7.4, Eosinophils (%) (Auto) 6.5H, Basophils (%) (Auto) 0.6, Erythrocyte Sedimentation Rate [Pending], Reticulocyte Count [Pending], Prothrombin Time 10.3, Prothromb Time International Ratio 1.0, Activated Partial Thromboplast Time 26, Sodium Level 141, Potassium Level 4.4, Chloride Level 107, Carbon Dioxide Level 31, Anion Gap 3L, Blood Urea Nitrogen 16, Creatinine 1.1, Estimat Glomerular Filtration Rate > 60, Glucose Level 110H, Calcium Level 8.5, Iron Level 58, Total Iron Binding Capacity 145L, Percent Iron Saturation 40, Unsaturated Iron Binding 87L , Lactate Dehydrogenase 153, Carcinoembryonic Antigen [Pending], Vitamin B12 Level 236, Folate 14.8 Current Medications Medications (Trade) Dose Ordered Sig/Yaima Route PRN Reason Start Time Stop Time Status Last Admin Dose Admin Acetaminophen (Tylenol) 650 mg Q4H PRN ORAL fever 10/12/19 17:15 11/11/19 17:14 10/12/19 17:53 Acetaminophen (Tylenol) 650 mg Q4H PRN ORAL Mild Pain (Pain Scale 1-3) 10/12/19 17:15 11/11/19 17:14 Aspirin (Ecotrin) 325 mg DAILY ORAL 10/13/19 09:00 11/12/19 08:59 10/17/19 08:54 Dextrose (Dextrose 50%) 25 ml Q30M PRN IV Hypoglycemia 10/12/19 17:30 11/11/19 17:29 Dextrose (Dextrose 50%) 50 ml Q30M PRN IV Hypoglycemia 10/12/19 17:30 11/11/19 17:29 Docusate Sodium (Colace) 100 mg TWICE A DAY ORAL 10/15/19 09:00 11/14/19 08:59 10/17/19 08:53 Gabapentin (Neurontin) 300 mg BEDTIME ORAL 10/12/19 21:00 11/11/19 20:59 10/16/19 22:14 Heparin Sodium (Porcine) (Heparin 5000 units/ml) 5,000 units EVERY 12 HOURS SUBQ 10/12/19 21:00 11/11/19 20:59 10/17/19 08:58 Insulin Aspart (NovoLOG) BEFORE MEALS AND HS SUBQ 10/12/19 21:00 11/11/19 20:59 10/16/19 06:09 Lorazepam (Ativan) 1 mg Q4H PRN ORAL For Anxiety 10/12/19 17:15 10/19/19 17:14 Metoprolol Tartrate (Lopressor) 25 mg EVERY 12 HOURS ORAL 10/13/19 21:00 11/12/19 20:59 10/17/19 08:54 Morphine Sulfate (Morphine Sulfate) 4 mg Q4H PRN IVP For Pain 10/14/19 01:15 10/21/19 01:14 10/16/19 22:35 Pantoprazole (Protonix) 40 mg DAILY ORAL 10/13/19 09:00 11/12/19 08:59 10/17/19 08:53 Piperacillin Sod/ Tazobactam Sod 3.375 gm/Sodium Chloride 110 ml @ 27.5 mls/hr Q8H IVPB 10/13/19 14:30 10/20/19 14:29 10/17/19 06:20 Polyethylene Glycol (Miralax) 17 gm BEDTIME ORAL 10/15/19 21:00 11/14/19 20:59 10/15/19 21:05 Polyethylene Glycol (Miralax) 17 gm DAILY PRN ORAL Constipation 10/15/19 08:00 11/14/19 07:59 Quetiapine Fumarate (SEROqueL) 200 mg Q12HR ORAL 10/12/19 21:00 11/11/19 20:59 10/17/19 08:53 Regadenoson (Lexiscan) 0.4 mg ONCE PRN IV STRESS TEST 10/17/19 11:00 10/19/19 23:59 Vancomycin HCl (Vanco rx to dose) 1 ea DAILY PRN MISC Per rx protocol 10/13/19 13:15 11/12/19 13:14 Vancomycin/Sodium Chloride 275 ml @ 137.5 mls/ hr Q12H IVPB 10/14/19 10:00 10/19/19 09:59 10/17/19 10:07 Kati Gamble MD Oct 17, 2019 11:54
[2019-10-17 12:00] VITALS: BP 137/90
--- NOTE | 2019-10-17 15:52 | Diagnostic Imaging Report ---
Indication: chest pain Technique: The study was conducted under the supervision of a rhythmic gymnastics coach. Dolbutamine administration followed by intravenous administration of 29.2 mCi of technetium 99m Myoview was performed. Three plane SPECT imaging of the heart was then performed. A resting study was performed as part of the one-day protocol with 10.5 mCi of technetium 99m myoview injected intravenously at that time. Three plane SPECT imaging of the heart was obtained. Comparison: None Clinical data: 85% maximum predicted heart rate: 154. Resting heart rate: 74. Peak heart rate: 131 Resting blood pressure: 143/76. Peak blood pressure: 149/75 Symptoms: No chest pain. EKG changes none. Resting EKG: Sinus rhythm. 1. Clinical response: Non ischemic 2. Electrocardiographic response: Non ischemic Findings: The myocardial perfusion scan demonstrates dilatation of the left ventricle. There is somewhat heterogeneous perfusion but there is no demonstration of any definite fixed or reversible defects. Left ventricular ejection fraction is estimated at 47% on this examination. IMPRESSION: No definite evidence of myocardial ischemia. However evaluation for this is limited on the current examination as level of stress achieved was less than optimal. Suggestion of mild left ventricular dilatation. Correlate with echocardiogram. LVEF estimated at 47% on this exam
[2019-10-17 16:00] VITALS: BP 128/60
[2019-10-17] MEDS ORDERED: DOBUTamine 250mg/250ml Premix IV ONE (16:45)
--- NOTE | 2019-10-17 17:39 | Infectious Diseases Prog Note ---
Assessment/Plan Assessment/Plan ASSESSMENT: The patient is a 39-year-old male with: 1. Right-sided mastoid and sinus disease and otitis media (coverage for Pseudomonas and possible MRSA), -head CT: Abnormal right temporal bone, with opacification of the right mastoid air cells, probably the middle ear cavity, and of the external auditory canal. Per discussion with referring physician, patient has evidence of otitis with pus coming out of the ear. In addition, there is slight indistinctness of the anterior margin of the temporal bone as compared to the left, which could indicate bony erosive changes.Consider further evaluation with temporal bone CT and/or MRI. No evidence of associated brain abscess. -Bcx NTD -ear cx Staph and Strep Diabetes. History of neuropathy. Hypertension. Bipolar disorder. Schizophrenia. History of back surgery due to the fall PLAN: 1. We will start the patient on Ancef # 1 / 64 and DC IV Zosyn # 5 and vancomycin day # 5 2. Monitor CBC. 3. Monitor BMP. 4. Monitor cultures (blood). 5. Recommend ENT consultation. Based on the patient's clinical course and laboratories, we will do further recommendations. Subjective Allergies: Coded Allergies: EGG (Verified Allergy, Unknown, 10/12/19) VENLAFAXINE (Verified Allergy, Unknown, 10/12/19) Subjective comfortable Objective Vital Signs Last 24 Hour Vital Signs Date Time Temp Pulse Resp B/P (MAP) Pulse Ox O2 Delivery O2 Flow Rate FiO2 10/17/19 16:00 97.8 79 20 128/60 (82) 97 10/17/19 16:00 75 10/17/19 12:00 70 10/17/19 12:00 97.9 68 20 137/90 (106) 100 10/17/19 09:00 Nasal Cannula 2.0 10/17/19 08:54 84 141/56 10/17/19 08:00 97.6 84 16 147/56 (86) 94 10/17/19 08:00 84 10/17/19 04:00 98.2 74 16 129/78 (95) 95 10/17/19 04:00 74 10/17/19 00:00 98.3 78 16 128/67 (87) 96 10/17/19 00:00 78 10/16/19 21:00 81 129/74 10/16/19 21:00 Nasal Cannula 2.0 10/16/19 20:00 98.5 83 18 126/61 (82) 95 10/16/19 20:00 83 Height (Feet): 5 Height (Inches): 6.00 Weight (Pounds): 209 HEENT: mucous membranes moist Respiratory/Chest: normal breath sounds Cardiovascular: regular rhythm Abdomen: soft, non tender Laboratory Tests Test 10/17/19 06:24 White Blood Count 7.6 K/UL (4.8-10.8) Red Blood Count 3.00 M/UL (4.70-6.10) L Hemoglobin 9.6 G/DL (14.2-18.0) L Hematocrit 27.7 % (42.0-52.0) L Mean Corpuscular Volume 92 FL (80-99) Mean Corpuscular Hemoglobin 31.9 PG (27.0-31.0) H Mean Corpuscular Hemoglobin Concent 34.5 G/DL (32.0-36.0) Red Cell Distribution Width 11.7 % (11.6-14.8) Platelet Count 321 K/UL (150-450) Mean Platelet Volume 4.7 FL (6.5-10.1) L Neutrophils (%) (Auto) 68.1 % (45.0-75.0) Lymphocytes (%) (Auto) 17.4 % (20.0-45.0) L Monocytes (%) (Auto) 7.4 % (1.0-10.0) Eosinophils (%) (Auto) 6.5 % (0.0-3.0) H Basophils (%) (Auto) 0.6 % (0.0-2.0) Erythrocyte Sedimentation Rate 120 MM/HR (0-15) H Reticulocyte Count 1.6 % (0.5-2.0) Prothrombin Time 10.3 SEC (9.30-11.50) Prothromb Time International Ratio 1.0 (0.9-1.1) Activated Partial Thromboplast Time 26 SEC (23-33) Sodium Level 141 MMOL/L (136-145) Potassium Level 4.4 MMOL/L (3.5-5.1) Chloride Level 107 MMOL/L (98-107) Carbon Dioxide Level 31 MMOL/L (21-32) Anion Gap 3 mmol/L (5-15) L Blood Urea Nitrogen 16 mg/dL (7-18) Creatinine 1.1 MG/DL (0.55-1.30) Estimat Glomerular Filtration Rate > 60 mL/min (>60) Glucose Level 110 MG/DL (74-106) H Calcium Level 8.5 MG/DL (8.5-10.1) Iron Level 58 ug/dL (50-175) Total Iron Binding Capacity 145 ug/dL (250-450) L Percent Iron Saturation 40 % (15-50) Unsaturated Iron Binding 87 ug/dL (112-346) L Lactate Dehydrogenase 153 U/L (81-234) Carcinoembryonic Antigen Pending Vitamin B12 Level 236 PG/ML (193-986) Folate 14.8 NG/ML (8.6-58.9) Current Medications Medications (Trade) Dose Ordered Sig/Yaima Route PRN Reason Start Time Stop Time Status Last Admin Dose Admin Acetaminophen (Tylenol) 650 mg Q4H PRN ORAL fever 10/12/19 17:15 11/11/19 17:14 10/12/19 17:53 Acetaminophen (Tylenol) 650 mg Q4H PRN ORAL Mild Pain (Pain Scale 1-3) 10/12/19 17:15 11/11/19 17:14 Aspirin (Ecotrin) 325 mg DAILY ORAL 10/13/19 09:00 11/12/19 08:59 10/17/19 08:54 Dextrose (Dextrose 50%) 25 ml Q30M PRN IV Hypoglycemia 10/12/19 17:30 11/11/19 17:29 Dextrose (Dextrose 50%) 50 ml Q30M PRN IV Hypoglycemia 10/12/19 17:30 11/11/19 17:29 Docusate Sodium (Colace) 100 mg TWICE A DAY ORAL 10/15/19 09:00 11/14/19 08:59 10/17/19 08:53 Gabapentin (Neurontin) 300 mg BEDTIME ORAL 10/12/19 21:00 11/11/19 20:59 10/16/19 22:14 Heparin Sodium (Porcine) (Heparin 5000 units/ml) 5,000 units EVERY 12 HOURS SUBQ 10/12/19 21:00 11/11/19 20:59 10/17/19 08:58 Insulin Aspart (NovoLOG) BEFORE MEALS AND HS SUBQ 10/12/19 21:00 11/11/19 20:59 10/16/19 06:09 Lorazepam (Ativan) 1 mg Q4H PRN ORAL For Anxiety 10/12/19 17:15 10/19/19 17:14 Metoprolol Tartrate (Lopressor) 25 mg EVERY 12 HOURS ORAL 10/13/19 21:00 11/12/19 20:59 10/17/19 08:54 Morphine Sulfate (Morphine Sulfate) 4 mg Q4H PRN IVP For Pain 10/14/19 01:15 10/21/19 01:14 10/16/19 22:35 Pantoprazole (Protonix) 40 mg DAILY ORAL 10/13/19 09:00 11/12/19 08:59 10/17/19 08:53 Piperacillin Sod/ Tazobactam Sod 3.375 gm/Sodium Chloride 110 ml @ 27.5 mls/hr Q8H IVPB 10/13/19 14:30 10/20/19 14:29 10/17/19 15:14 Polyethylene Glycol (Miralax) 17 gm BEDTIME ORAL 10/15/19 21:00 11/14/19 20:59 10/15/19 21:05 Polyethylene Glycol (Miralax) 17 gm DAILY PRN ORAL Constipation 10/15/19 08:00 11/14/19 07:59 Quetiapine Fumarate (SEROqueL) 200 mg Q12HR ORAL 10/12/19 21:00 11/11/19 20:59 10/17/19 08:53 Regadenoson (Lexiscan) 0.4 mg ONCE PRN IV STRESS TEST 10/17/19 11:00 10/19/19 23:59 Vancomycin HCl (Vanco rx to dose) 1 ea DAILY PRN MISC Per rx protocol 10/13/19 13:15 11/12/19 13:14 Vancomycin/Sodium Chloride 275 ml @ 137.5 mls/ hr Q12H IVPB 10/14/19 10:00 10/19/19 09:59 10/17/19 10:07 Munir Thompson MD Oct 17, 2019 17:39
--- NOTE | 2019-10-17 17:39 | Internal Med Progress Note ---
Subjective Date of Service: Oct 17, 2019 Physician Name Jamarcus Varghese Attending Physician Robin Shin MD Current Medications Medications (Trade) Dose Ordered Sig/Yaima Route PRN Reason Start Time Stop Time Status Last Admin Dose Admin Acetaminophen (Tylenol) 650 mg Q4H PRN ORAL fever 10/12/19 17:15 11/11/19 17:14 10/12/19 17:53 Acetaminophen (Tylenol) 650 mg Q4H PRN ORAL Mild Pain (Pain Scale 1-3) 10/12/19 17:15 11/11/19 17:14 Aspirin (Ecotrin) 325 mg DAILY ORAL 10/13/19 09:00 11/12/19 08:59 10/17/19 08:54 Cefazolin Sodium 2 gm/Dextrose 110 ml @ 220 mls/hr Q8HR IVPB 10/17/19 17:45 10/24/19 17:44 UNV Dextrose (Dextrose 50%) 25 ml Q30M PRN IV Hypoglycemia 10/12/19 17:30 11/11/19 17:29 Dextrose (Dextrose 50%) 50 ml Q30M PRN IV Hypoglycemia 10/12/19 17:30 11/11/19 17:29 Docusate Sodium (Colace) 100 mg TWICE A DAY ORAL 10/15/19 09:00 11/14/19 08:59 10/17/19 08:53 Gabapentin (Neurontin) 300 mg BEDTIME ORAL 10/12/19 21:00 11/11/19 20:59 10/16/19 22:14 Heparin Sodium (Porcine) (Heparin 5000 units/ml) 5,000 units EVERY 12 HOURS SUBQ 10/12/19 21:00 11/11/19 20:59 10/17/19 08:58 Insulin Aspart (NovoLOG) BEFORE MEALS AND HS SUBQ 10/12/19 21:00 11/11/19 20:59 10/16/19 06:09 Lorazepam (Ativan) 1 mg Q4H PRN ORAL For Anxiety 10/12/19 17:15 10/19/19 17:14 Metoprolol Tartrate (Lopressor) 25 mg EVERY 12 HOURS ORAL 10/13/19 21:00 11/12/19 20:59 10/17/19 08:54 Morphine Sulfate (Morphine Sulfate) 4 mg Q4H PRN IVP For Pain 10/14/19 01:15 10/21/19 01:14 10/16/19 22:35 Pantoprazole (Protonix) 40 mg DAILY ORAL 10/13/19 09:00 11/12/19 08:59 10/17/19 08:53 Polyethylene Glycol (Miralax) 17 gm BEDTIME ORAL 10/15/19 21:00 11/14/19 20:59 10/15/19 21:05 Polyethylene Glycol (Miralax) 17 gm DAILY PRN ORAL Constipation 10/15/19 08:00 11/14/19 07:59 Quetiapine Fumarate (SEROqueL) 200 mg Q12HR ORAL 10/12/19 21:00 11/11/19 20:59 10/17/19 08:53 Regadenoson (Lexiscan) 0.4 mg ONCE PRN IV STRESS TEST 10/17/19 11:00 10/19/19 23:59 Allergies: Coded Allergies: EGG (Verified Allergy, Unknown, 10/12/19) VENLAFAXINE (Verified Allergy, Unknown, 10/12/19) ROS Limited/Unobtainable: No Constitutional: Reports: no symptoms HEENT: Reports: no symptoms Cardiovascular: Reports: no symptoms Respiratory: Reports: no symptoms Gastrointestinal/Abdominal: Reports: no symptoms Genitourinary: Reports: no symptoms Subjective 39 YO admitted with right headache. Now mastoiditis. Cover for Int Med-Dr Shin. Await ENT consult and cardiac stress test Objective Last Vital Signs Date Time Temp Pulse Resp B/P (MAP) Pulse Ox O2 Delivery O2 Flow Rate FiO2 10/17/19 16:00 97.8 79 20 128/60 (82) 97 10/17/19 09:00 Nasal Cannula 2.0 Laboratory Tests Test 10/17/19 06:24 White Blood Count 7.6 K/UL (4.8-10.8) Red Blood Count 3.00 M/UL (4.70-6.10) L Hemoglobin 9.6 G/DL (14.2-18.0) L Hematocrit 27.7 % (42.0-52.0) L Mean Corpuscular Volume 92 FL (80-99) Mean Corpuscular Hemoglobin 31.9 PG (27.0-31.0) H Mean Corpuscular Hemoglobin Concent 34.5 G/DL (32.0-36.0) Red Cell Distribution Width 11.7 % (11.6-14.8) Platelet Count 321 K/UL (150-450) Mean Platelet Volume 4.7 FL (6.5-10.1) L Neutrophils (%) (Auto) 68.1 % (45.0-75.0) Lymphocytes (%) (Auto) 17.4 % (20.0-45.0) L Monocytes (%) (Auto) 7.4 % (1.0-10.0) Eosinophils (%) (Auto) 6.5 % (0.0-3.0) H Basophils (%) (Auto) 0.6 % (0.0-2.0) Erythrocyte Sedimentation Rate 120 MM/HR (0-15) H Reticulocyte Count 1.6 % (0.5-2.0) Prothrombin Time 10.3 SEC (9.30-11.50) Prothromb Time International Ratio 1.0 (0.9-1.1) Activated Partial Thromboplast Time 26 SEC (23-33) Sodium Level 141 MMOL/L (136-145) Potassium Level 4.4 MMOL/L (3.5-5.1) Chloride Level 107 MMOL/L (98-107) Carbon Dioxide Level 31 MMOL/L (21-32) Anion Gap 3 mmol/L (5-15) L Blood Urea Nitrogen 16 mg/dL (7-18) Creatinine 1.1 MG/DL (0.55-1.30) Estimat Glomerular Filtration Rate > 60 mL/min (>60) Glucose Level 110 MG/DL (74-106) H Calcium Level 8.5 MG/DL (8.5-10.1) Iron Level 58 ug/dL (50-175) Total Iron Binding Capacity 145 ug/dL (250-450) L Percent Iron Saturation 40 % (15-50) Unsaturated Iron Binding 87 ug/dL (112-346) L Lactate Dehydrogenase 153 U/L (81-234) Carcinoembryonic Antigen Pending Vitamin B12 Level 236 PG/ML (193-986) Folate 14.8 NG/ML (8.6-58.9) Intake and Output 10/16/19 10/17/19 19:00 07:00 Intake Total 1027.0 ml 507.5 ml Output Total 1000 ml Balance 27.0 ml 507.5 ml Intake Oral 532 ml 480 ml IV Total 495.0 ml 27.5 ml Output Urine Total 1000 ml # Voids 4 4 Objective PHYSICAL EXAMINATION: GENERAL: The patient is well-developed and well-nourished male in no apparent distress. HEENT: Eyes, pupils are equal and responsive to light and accommodation. Extraocular movements are intact. NECK: Supple without lymphadenopathy. CHEST: Lungs are clear to auscultation bilaterally without wheezes or rales. CARDIOVASCULAR: Regular rate. S1 and S2 normal without murmurs, rubs, or gallops. ABDOMEN: Soft, nontender, nondistended. Positive bowel sounds. No evidence of hepatosplenomegaly. Currently, no rebound or guarding noted. EXTREMITIES: Negative for clubbing, cyanosis, or edema. RECTAL/GENITAL: Refused. NEUROLOGIC: Cranial nerves II through XII are grossly intact without focal deficits. Motor strength is 5/5 bilaterally. Deep tendon reflexes 2+ plantar. Assessment/Plan Assessment/Plan ASSESSMENT: This is a 39-year-old male. 1. Altered mental status. 2. Congestive heart failure. 3. Right-sided headache. 4. [place]. 5. Photophobia. 6. Bipolar disorder. 7. Schizophrenia. 8. Diabetes type 2. 9. Hypertension. 10. Mastoiditis 11. Otitis Media TREATMENT: 1. Altered mental status. 2. Congestive heart failure. Cardiology consultation has been obtained with Dr. Lucas Bauer. We will follow recommendations of Cardiology. A cardiac Stress test is pending 3. Right-sided headache. The patient will receive Tylenol as needed for headache. A CT scan of the brain in the emergency room failed to demonstrate acute intracranial bleed or mass effect. 4. Bipolar disorder/schizophrenia. Continue Seroquel as above. 5. Diabetes type 2. As above, the patient has been placed on NovoLog sliding scale. 6. Hypertension. The patient is currently off antihypertensive medications. 7. Sinusitis. Initial CT scan of the brain revealed right-sided mastoid and middle ear opacification. The patient has been started empirically on Levaquin. 8. ENT consult pending for mastoiditis 9. ABX=vanco and zosyn per ID=Jamarcus Anderson MD Oct 17, 2019 17:39
[2019-10-17 20:00] VITALS: BP 138/81
[2019-10-17] MEDS: Miralax 17gm pkt ORAL SCH ×2 (20:53→21:00)
[2019-10-17] MEDS: ceFAZolin sod 2 GM in D5W 110 ML IVPB SCH (20:54)
[2019-10-17] MEDS: Morphine Sulfate 4mg/ml Inj (IV USE ONLY) IVP PRN (21:55)
[2019-10-18] VITALS (7 sets, daily range): BP systolic 125–143; BP diastolic 67–81
--- NOTE | 2019-10-18 05:15 | Consultation ---
DATE OF CONSULTATION: 10/17/2019 HISTORY OF PRESENT ILLNESS: This is a 39-year-old male with a history of schizophrenia, who has been admitted to the hospital for medical stabilization. The patient came in with a chief complaint of altered mental status. During evaluation, the patient was lying down quietly, calm, able to answer the questions. The patient is withdrawn, depressed, and denies any suicidal or homicidal ideation. No psychotic symptoms were noted. The patient is minimally verbal. He stated that he does not want a psychiatric hospitalization as he is not suicidal or homicidal and there is no need to go to psychiatric hospitalization. The patient is having no agitation. No behavior issues . PAST PSYCHIATRIC HISTORY: Schizophrenia as well as psychiatric hospitalization. Denies any suicide attempt. PAST MEDICAL HISTORY: , neuropathy, and hypertension. ALLERGIES: Venlafaxine. SUBSTANCE ABUSE HISTORY: No history of illicit drug use or alcohol. MENTAL STATUS EXAMINATION: The patient is alert and oriented times self, place, situation, and date. Mood is dysphoric. Affect is constricted, congruent with mood. Thought process is concrete. Thought content, no suicidal or homicidal ideation. Cognition is impaired. Insight and judgment is fair. ASSESSMENT: [place] I Schizoaffective disorder. [place] II Deferred. [place] III As above. [place] IV Low. [place] V 50. PLAN: 1. Start the patient on Seroquel. 2. Provide the patient with reality orientation and supportive therapy. Grace Diaz M.D. DR: ISRAEL JOB#: [id number] CC:
[2019-10-18] MEDS: ceFAZolin sod 2 GM in D5W 110 ML IVPB SCH ×3 (05:38→21:41)
[2019-10-18] MEDS: NovoLOG Insulin Flexpen SUBQ SCH ×4 (06:30→21:38)
[2019-10-18 06:42] LABS: BASOPHILS % (AUTO) 0.5 % (0.0-2.0); EOSINOPHILS % (AUTO) 7.2 % (0.0-3.0); HEMATOCRIT 26.9 % (42.0-52.0); HEMOGLOBIN 9.2 G/DL (14.2-18.0); LYMPHOCYTES % (AUTO) 18.5 % (20.0-45.0); MEAN CORPUSCULAR VOLUME 92 FL (80-99); MONOCYTES % (AUTO) 8.2 % (1.0-10.0); NEUTROPHILS % (AUTO) 65.6 % (45.0-75.0); PLATELET COUNT 344 K/UL (150-450); RED BLOOD COUNT 2.93 M/UL (4.70-6.10); RED CELL DISTRIBUTION WIDTH 11.8 % (11.6-14.8); WHITE BLOOD COUNT 8.9 K/UL (4.8-10.8)
[2019-10-18 07:33] LABS: ANION GAP 11 mmol/L (5-15); BLOOD UREA NITROGEN 19 mg/dL (7-18); CARBON DIOXIDE 26 MMOL/L (21-32); CHLORIDE 108 MMOL/L (98-107); CREATININE 1.1 MG/DL (0.55-1.30); POTASSIUM 4.2 MMOL/L (3.5-5.1); SODIUM 145 MMOL/L (136-145)
--- NOTE | 2019-10-18 09:45 | Infectious Diseases Prog Note ---
Assessment/Plan Assessment/Plan ASSESSMENT: The patient is a 39-year-old male with: 1. Right-sided mastoid and sinus disease and otitis media (coverage for Pseudomonas and possible MRSA), -head CT: Abnormal right temporal bone, with opacification of the right mastoid air cells, probably the middle ear cavity, and of the external auditory canal. Per discussion with referring physician, patient has evidence of otitis with pus coming out of the ear. In addition, there is slight indistinctness of the anterior margin of the temporal bone as compared to the left, which could indicate bony erosive changes.Consider further evaluation with temporal bone CT and/or MRI. No evidence of associated brain abscess. -Bcx NTD -ear cx Staph and Strep Diabetes. History of neuropathy. Hypertension. Bipolar disorder. Schizophrenia. History of back surgery due to the fall PLAN: cont pt on Ancef # 1 / and DC IV Zosyn # 5 and vancomycin day # 5 Monitor CBC. Monitor BMP. Monitor cultures (blood). Recommend ENT consultation. (I left a message for Dr Stockton on 10/15 and 10/17 , as he requested a call from me before seeing the pt ) Based on the patient's clinical course and laboratories, we will do further recommendations. Subjective Allergies: Coded Allergies: EGG (Verified Allergy, Unknown, 10/12/19) VENLAFAXINE (Verified Allergy, Unknown, 10/12/19) Subjective comfortable Objective Vital Signs Last 24 Hour Vital Signs Date Time Temp Pulse Resp B/P (MAP) Pulse Ox O2 Delivery O2 Flow Rate FiO2 10/18/19 08:00 98.2 85 19 125/75 (92) 98 10/18/19 04:00 69 10/18/19 04:00 98.1 86 19 140/81 (100) 96 10/18/19 00:00 98.2 80 19 136/72 (93) 96 10/18/19 00:00 68 10/17/19 21:00 Nasal Cannula 2.0 10/17/19 20:54 82 138/81 10/17/19 20:00 98.2 62 19 138/81 (100) 95 10/17/19 20:00 79 10/17/19 16:00 97.8 79 20 128/60 (82) 97 10/17/19 16:00 75 10/17/19 12:00 70 10/17/19 12:00 97.9 68 20 137/90 (106) 100 Height (Feet): 5 Height (Inches): 6.00 Weight (Pounds): 213 Laboratory Tests Test 10/18/19 05:46 White Blood Count 8.9 K/UL (4.8-10.8) Red Blood Count 2.93 M/UL (4.70-6.10) L Hemoglobin 9.2 G/DL (14.2-18.0) L Hematocrit 26.9 % (42.0-52.0) L Mean Corpuscular Volume 92 FL (80-99) Mean Corpuscular Hemoglobin 31.6 PG (27.0-31.0) H Mean Corpuscular Hemoglobin Concent 34.4 G/DL (32.0-36.0) Red Cell Distribution Width 11.8 % (11.6-14.8) Platelet Count 344 K/UL (150-450) Mean Platelet Volume 5.2 FL (6.5-10.1) L Neutrophils (%) (Auto) 65.6 % (45.0-75.0) Lymphocytes (%) (Auto) 18.5 % (20.0-45.0) L Monocytes (%) (Auto) 8.2 % (1.0-10.0) Eosinophils (%) (Auto) 7.2 % (0.0-3.0) H Basophils (%) (Auto) 0.5 % (0.0-2.0) Sodium Level 145 MMOL/L (136-145) Potassium Level 4.2 MMOL/L (3.5-5.1) Chloride Level 108 MMOL/L (98-107) H Carbon Dioxide Level 26 MMOL/L (21-32) Anion Gap 11 mmol/L (5-15) Blood Urea Nitrogen 19 mg/dL (7-18) H Creatinine 1.1 MG/DL (0.55-1.30) Estimat Glomerular Filtration Rate > 60 mL/min (>60) Glucose Level 96 MG/DL (74-106) Calcium Level 9.0 MG/DL (8.5-10.1) Current Medications Medications (Trade) Dose Ordered Sig/Yaima Route PRN Reason Start Time Stop Time Status Last Admin Dose Admin Acetaminophen (Tylenol) 650 mg Q4H PRN ORAL fever 10/12/19 17:15 11/11/19 17:14 10/12/19 17:53 Acetaminophen (Tylenol) 650 mg Q4H PRN ORAL Mild Pain (Pain Scale 1-3) 10/12/19 17:15 11/11/19 17:14 Aspirin (Ecotrin) 325 mg DAILY ORAL 10/13/19 09:00 11/12/19 08:59 10/17/19 08:54 Cefazolin Sodium 2 gm/Dextrose 110 ml @ 220 mls/hr Q8HR IVPB 10/17/19 20:00 10/24/19 19:59 10/18/19 05:38 Dextrose (Dextrose 50%) 25 ml Q30M PRN IV Hypoglycemia 10/12/19 17:30 11/11/19 17:29 Dextrose (Dextrose 50%) 50 ml Q30M PRN IV Hypoglycemia 10/12/19 17:30 11/11/19 17:29 Docusate Sodium (Colace) 100 mg TWICE A DAY ORAL 10/15/19 09:00 11/14/19 08:59 10/17/19 17:36 Gabapentin (Neurontin) 300 mg BEDTIME ORAL 10/12/19 21:00 11/11/19 20:59 10/17/19 20:53 Heparin Sodium (Porcine) (Heparin 5000 units/ml) 5,000 units EVERY 12 HOURS SUBQ 10/12/19 21:00 11/11/19 20:59 10/17/19 20:56 Insulin Aspart (NovoLOG) BEFORE MEALS AND HS SUBQ 10/12/19 21:00 11/11/19 20:59 10/16/19 06:09 Lorazepam (Ativan) 1 mg Q4H PRN ORAL For Anxiety 10/12/19 17:15 10/19/19 17:14 Metoprolol Tartrate (Lopressor) 25 mg EVERY 12 HOURS ORAL 10/13/19 21:00 11/12/19 20:59 10/17/19 20:54 Morphine Sulfate (Morphine Sulfate) 4 mg Q4H PRN IVP For Pain 10/14/19 01:15 10/21/19 01:14 10/17/19 21:55 Pantoprazole (Protonix) 40 mg DAILY ORAL 10/13/19 09:00 11/12/19 08:59 10/17/19 08:53 Polyethylene Glycol (Miralax) 17 gm BEDTIME ORAL 10/15/19 21:00 11/14/19 20:59 10/15/19 21:05 Polyethylene Glycol (Miralax) 17 gm DAILY PRN ORAL Constipation 10/15/19 08:00 11/14/19 07:59 Quetiapine Fumarate (SEROqueL) 200 mg Q12HR ORAL 10/12/19 21:00 11/11/19 20:59 10/17/19 20:53 Regadenoson (Lexiscan) 0.4 mg ONCE PRN IV STRESS TEST 10/17/19 11:00 10/19/19 23:59 Munir Thompson MD Oct 18, 2019 09:45
[2019-10-18] MEDS: Docusate 100mg cap ORAL SCH ×2 (09:46→17:01)
[2019-10-18] MEDS: Aspirin EC 325mg tab ORAL SCH (09:47)
[2019-10-18] MEDS: QUEtiapine 200mg tab ORAL SCH ×2 (09:47→21:34)
[2019-10-18] MEDS: Heparin 5000 units/ml inj SUBQ SCH ×2 (09:49→21:38)
--- NOTE | 2019-10-18 11:23 | Pulmonology Progress Note ---
Assessment/Plan Problems: (1) Otitis (2) Osteomyelitis of temporal bone (3) Normocytic normochromic anemia (4) Symptomatic anemia (5) Bipolar disorder (6) Schizophrenia Assessment/Plan anemia w/u in progress. iron studies are normal,. Reti count is normal. check blood smear, and LDH and reti count again. continue abx as per ID, Ancef for total of 64 days. stress testing ordered anemia w/u in progress afebrile, continue abx. Subjective ROS Limited/Unobtainable: No Constitutional: Reports: no symptoms HEENT: Repors: no symptoms Allergies: Coded Allergies: EGG (Verified Allergy, Unknown, 10/12/19) VENLAFAXINE (Verified Allergy, Unknown, 10/12/19) Objective Last 24 Hour Vital Signs Date Time Temp Pulse Resp B/P (MAP) Pulse Ox O2 Delivery O2 Flow Rate FiO2 10/18/19 09:47 85 125/75 10/18/19 09:00 Nasal Cannula 2.0 10/18/19 08:00 98.2 85 19 125/75 (92) 98 10/18/19 08:00 75 10/18/19 04:00 69 10/18/19 04:00 98.1 86 19 140/81 (100) 96 10/18/19 00:00 98.2 80 19 136/72 (93) 96 10/18/19 00:00 68 10/17/19 21:00 Nasal Cannula 2.0 10/17/19 20:54 82 138/81 10/17/19 20:00 98.2 62 19 138/81 (100) 95 10/17/19 20:00 79 10/17/19 16:00 97.8 79 20 128/60 (82) 97 10/17/19 16:00 75 10/17/19 12:00 70 10/17/19 12:00 97.9 68 20 137/90 (106) 100 Intake and Output 10/17/19 10/18/19 19:00 07:00 Intake Total 985.0 ml 440 ml Output Total 1500 ml 600 ml Balance -515.0 ml -160 ml Intake Oral 600 ml IV Total 385.0 ml 440 ml Output Urine Total 1500 ml 600 ml # Voids 5 4 General Appearance: WD/WN HEENT: normocephalic, atraumatic Respiratory/Chest: chest wall non-tender, lungs clear Cardiovascular: normal peripheral pulses, normal rate Abdomen: normal bowel sounds, soft, non tender, no organomegaly Genitourinary: normal external genitalia Skin: no rash Laboratory Tests 10/18/19 05:46: White Blood Count 8.9, Red Blood Count 2.93L, Hemoglobin 9.2L, Hematocrit 26.9L , Mean Corpuscular Volume 92, Mean Corpuscular Hemoglobin 31.6H, Mean Corpuscular Hemoglobin Concent 34.4, Red Cell Distribution Width 11.8, Platelet Count 344, Mean Platelet Volume 5.2L, Neutrophils (%) (Auto) 65.6, Lymphocytes ( %) (Auto) 18.5L, Monocytes (%) (Auto) 8.2, Eosinophils (%) (Auto) 7.2H, Basophils (%) (Auto) 0.5, Sodium Level 145, Potassium Level 4.2, Chloride Level 108H, Carbon Dioxide Level 26, Anion Gap 11, Blood Urea Nitrogen 19H, Creatinine 1.1, Estimat Glomerular Filtration Rate > 60, Glucose Level 96, Calcium Level 9.0 Current Medications Medications (Trade) Dose Ordered Sig/Yaima Route PRN Reason Start Time Stop Time Status Last Admin Dose Admin Acetaminophen (Tylenol) 650 mg Q4H PRN ORAL fever 10/12/19 17:15 11/11/19 17:14 10/12/19 17:53 Acetaminophen (Tylenol) 650 mg Q4H PRN ORAL Mild Pain (Pain Scale 1-3) 10/12/19 17:15 11/11/19 17:14 Aspirin (Ecotrin) 325 mg DAILY ORAL 10/13/19 09:00 11/12/19 08:59 10/18/19 09:47 Cefazolin Sodium 2 gm/Dextrose 110 ml @ 220 mls/hr Q8HR IVPB 10/17/19 20:00 10/24/19 19:59 10/18/19 05:38 Dextrose (Dextrose 50%) 25 ml Q30M PRN IV Hypoglycemia 10/12/19 17:30 11/11/19 17:29 Dextrose (Dextrose 50%) 50 ml Q30M PRN IV Hypoglycemia 10/12/19 17:30 11/11/19 17:29 Docusate Sodium (Colace) 100 mg TWICE A DAY ORAL 10/15/19 09:00 11/14/19 08:59 3/4/20 09:46 Gabapentin (Neurontin) 300 mg BEDTIME ORAL 10/12/19 21:00 11/11/19 20:59 10/17/19 20:53 Heparin Sodium (Porcine) (Heparin 5000 units/ml) 5,000 units EVERY 12 HOURS SUBQ 10/12/19 21:00 11/11/19 20:59 10/18/19 09:49 Insulin Aspart (NovoLOG) BEFORE MEALS AND HS SUBQ 10/12/19 21:00 11/11/19 20:59 10/16/19 06:09 Lorazepam (Ativan) 1 mg Q4H PRN ORAL For Anxiety 10/12/19 17:15 10/19/19 17:14 Metoprolol Tartrate (Lopressor) 25 mg EVERY 12 HOURS ORAL 10/13/19 21:00 11/12/19 20:59 10/18/19 09:47 Morphine Sulfate (Morphine Sulfate) 4 mg Q4H PRN IVP For Pain 10/14/19 01:15 10/21/19 01:14 10/17/19 21:55 Pantoprazole (Protonix) 40 mg DAILY ORAL 10/13/19 09:00 11/12/19 08:59 10/18/19 09:47 Polyethylene Glycol (Miralax) 17 gm BEDTIME ORAL 10/15/19 21:00 11/14/19 20:59 10/15/19 21:05 Polyethylene Glycol (Miralax) 17 gm DAILY PRN ORAL Constipation 10/15/19 08:00 11/14/19 07:59 Quetiapine Fumarate (SEROqueL) 200 mg Q12HR ORAL 10/12/19 21:00 11/11/19 20:59 10/18/19 09:47 Regadenoson (Lexiscan) 0.4 mg ONCE PRN IV STRESS TEST 10/17/19 11:00 10/19/19 23:59 Kati Gamble MD Oct 18, 2019 11:23
--- NOTE | 2019-10-18 12:24 | Internal Med Progress Note ---
Subjective Date of Service: Oct 18, 2019 Physician Name Jamarcus Varghese Attending Physician Robin Shin MD Current Medications Medications (Trade) Dose Ordered Sig/Yaima Route PRN Reason Start Time Stop Time Status Last Admin Dose Admin Acetaminophen (Tylenol) 650 mg Q4H PRN ORAL fever 10/12/19 17:15 11/11/19 17:14 10/12/19 17:53 Acetaminophen (Tylenol) 650 mg Q4H PRN ORAL Mild Pain (Pain Scale 1-3) 10/12/19 17:15 11/11/19 17:14 Aspirin (Ecotrin) 325 mg DAILY ORAL 10/13/19 09:00 11/12/19 08:59 10/18/19 09:47 Cefazolin Sodium 2 gm/Dextrose 110 ml @ 220 mls/hr Q8HR IVPB 10/17/19 20:00 10/24/19 19:59 10/18/19 05:38 Dextrose (Dextrose 50%) 25 ml Q30M PRN IV Hypoglycemia 10/12/19 17:30 11/11/19 17:29 Dextrose (Dextrose 50%) 50 ml Q30M PRN IV Hypoglycemia 10/12/19 17:30 11/11/19 17:29 Docusate Sodium (Colace) 100 mg TWICE A DAY ORAL 10/15/19 09:00 11/14/19 08:59 10/18/19 09:46 Gabapentin (Neurontin) 300 mg BEDTIME ORAL 10/12/19 21:00 11/11/19 20:59 10/17/19 20:53 Heparin Sodium (Porcine) (Heparin 5000 units/ml) 5,000 units EVERY 12 HOURS SUBQ 10/12/19 21:00 11/11/19 20:59 10/18/19 09:49 Insulin Aspart (NovoLOG) BEFORE MEALS AND HS SUBQ 10/12/19 21:00 11/11/19 20:59 10/16/19 06:09 Lorazepam (Ativan) 1 mg Q4H PRN ORAL For Anxiety 10/12/19 17:15 10/19/19 17:14 Metoprolol Tartrate (Lopressor) 25 mg EVERY 12 HOURS ORAL 10/13/19 21:00 11/12/19 20:59 10/18/19 09:47 Morphine Sulfate (Morphine Sulfate) 4 mg Q4H PRN IVP For Pain 10/14/19 01:15 10/21/19 01:14 10/17/19 21:55 Pantoprazole (Protonix) 40 mg DAILY ORAL 10/13/19 09:00 11/12/19 08:59 10/18/19 09:47 Polyethylene Glycol (Miralax) 17 gm BEDTIME ORAL 10/15/19 21:00 11/14/19 20:59 10/15/19 21:05 Polyethylene Glycol (Miralax) 17 gm DAILY PRN ORAL Constipation 10/15/19 08:00 11/14/19 07:59 Quetiapine Fumarate (SEROqueL) 200 mg Q12HR ORAL 10/12/19 21:00 11/11/19 20:59 10/18/19 09:47 Regadenoson (Lexiscan) 0.4 mg ONCE PRN IV STRESS TEST 10/17/19 11:00 10/19/19 23:59 Allergies: Coded Allergies: EGG (Verified Allergy, Unknown, 10/12/19) VENLAFAXINE (Verified Allergy, Unknown, 10/12/19) ROS Limited/Unobtainable: No Constitutional: Reports: no symptoms HEENT: Reports: no symptoms Cardiovascular: Reports: no symptoms Respiratory: Reports: no symptoms Gastrointestinal/Abdominal: Reports: no symptoms Genitourinary: Reports: no symptoms Neurologic/Psychiatric: Reports: no symptoms Subjective 39 YO admitted with right headache. Now mastoiditis. Cover for Int Med-Dr Shin. Await ENT consult. S/P nuclear med cardiac stress test on 10/17/19 Objective Last Vital Signs Date Time Temp Pulse Resp B/P (MAP) Pulse Ox O2 Delivery O2 Flow Rate FiO2 10/18/19 09:47 85 125/75 10/18/19 09:00 Nasal Cannula 2.0 10/18/19 08:00 98.2 19 98 Laboratory Tests Test 10/18/19 05:46 White Blood Count 8.9 K/UL (4.8-10.8) Red Blood Count 2.93 M/UL (4.70-6.10) L Hemoglobin 9.2 G/DL (14.2-18.0) L Hematocrit 26.9 % (42.0-52.0) L Mean Corpuscular Volume 92 FL (80-99) Mean Corpuscular Hemoglobin 31.6 PG (27.0-31.0) H Mean Corpuscular Hemoglobin Concent 34.4 G/DL (32.0-36.0) Red Cell Distribution Width 11.8 % (11.6-14.8) Platelet Count 344 K/UL (150-450) Mean Platelet Volume 5.2 FL (6.5-10.1) L Neutrophils (%) (Auto) 65.6 % (45.0-75.0) Lymphocytes (%) (Auto) 18.5 % (20.0-45.0) L Monocytes (%) (Auto) 8.2 % (1.0-10.0) Eosinophils (%) (Auto) 7.2 % (0.0-3.0) H Basophils (%) (Auto) 0.5 % (0.0-2.0) Sodium Level 145 MMOL/L (136-145) Potassium Level 4.2 MMOL/L (3.5-5.1) Chloride Level 108 MMOL/L (98-107) H Carbon Dioxide Level 26 MMOL/L (21-32) Anion Gap 11 mmol/L (5-15) Blood Urea Nitrogen 19 mg/dL (7-18) H Creatinine 1.1 MG/DL (0.55-1.30) Estimat Glomerular Filtration Rate > 60 mL/min (>60) Glucose Level 96 MG/DL (74-106) Calcium Level 9.0 MG/DL (8.5-10.1) Intake and Output 10/17/19 10/18/19 19:00 07:00 Intake Total 985.0 ml 440 ml Output Total 1500 ml 600 ml Balance -515.0 ml -160 ml Intake Oral 600 ml IV Total 385.0 ml 440 ml Output Urine Total 1500 ml 600 ml # Voids 5 4 Objective PHYSICAL EXAMINATION: GENERAL: The patient is well-developed and well-nourished male in no apparent distress. HEENT: Eyes, pupils are equal and responsive to light and accommodation. Extraocular movements are intact. NECK: Supple without lymphadenopathy. CHEST: Lungs are clear to auscultation bilaterally without wheezes or rales. CARDIOVASCULAR: Regular rate. S1 and S2 normal without murmurs, rubs, or gallops. ABDOMEN: Soft, nontender, nondistended. Positive bowel sounds. No evidence of hepatosplenomegaly. Currently, no rebound or guarding noted. EXTREMITIES: Negative for clubbing, cyanosis, or edema. RECTAL/GENITAL: Refused. NEUROLOGIC: Cranial nerves II through XII are grossly intact without focal deficits. Motor strength is 5/5 bilaterally. Deep tendon reflexes 2+ plantar. Assessment/Plan Assessment/Plan ASSESSMENT: This is a 39-year-old male. 1. Altered mental status. 2. Congestive heart failure. 3. Right-sided headache. 4. [place]. 5. Photophobia. 6. Bipolar disorder. 7. Schizophrenia. 8. Diabetes type 2. 9. Hypertension. 10. Mastoiditis 11. Otitis Media TREATMENT: 1. Altered mental status-resolving 2. Congestive heart failure. Cardiology consultation has been obtained with Dr. Lucas Bauer. We will follow recommendations of Cardiology. A cardiac Nuclear medicine myocardial Stress test = non ischemic 3. Right-sided headache. The patient will receive Tylenol as needed for headache. A CT scan of the brain in the emergency room failed to demonstrate acute intracranial bleed or mass effect. 4. Bipolar disorder/schizophrenia. Continue Seroquel as above. 5. Diabetes type 2. As above, the patient has been placed on NovoLog sliding scale. 6. Hypertension. The patient is currently off antihypertensive medications. 7. Sinusitis. Initial CT scan of the brain revealed right-sided mastoid and middle ear opacification. The patient has been started empirically on Levaquin. 8. ENT consult pending for mastoiditis 9. ABX=vanco and zosyn per ID=Jamarcus Anderson MD Oct 18, 2019 12:24
--- NOTE | 2019-10-18 13:57 | Cardiac Electrophysiology PN ---
Assessment/Plan Assessment/Plan 1. Inferolateral ischemia on 2 separate ECGs in a patient with HTN and Meth use. Echo Nl EF.No CP . Stress test was nonischemic 2. HTN On Lopressor 25 bid 3. CHF Clinically Euvolemic and EF normal. 4. Right ear otitis FU ENT and ID 5. Bipolar DW RN DC tele Subjective Subjective Alert in NAD. No CP or SOB. No arrhythmias on tele. Stress test yesterday showed no ischemia. Objective Last 24 Hour Vital Signs Date Time Temp Pulse Resp B/P (MAP) Pulse Ox O2 Delivery O2 Flow Rate FiO2 10/18/19 13:05 98.6 86 19 138/71 (93) 99 10/18/19 12:00 98.6 86 19 138/71 (93) 99 10/18/19 12:00 80 10/18/19 09:47 85 125/75 10/18/19 09:00 Nasal Cannula 2.0 10/18/19 08:00 98.2 85 19 125/75 (92) 98 10/18/19 08:00 75 10/18/19 04:00 69 10/18/19 04:00 98.1 86 19 140/81 (100) 96 10/18/19 00:00 98.2 80 19 136/72 (93) 96 10/18/19 00:00 68 10/17/19 21:00 Nasal Cannula 2.0 10/17/19 20:54 82 138/81 10/17/19 20:00 98.2 62 19 138/81 (100) 95 10/17/19 20:00 79 10/17/19 16:00 97.8 79 20 128/60 (82) 97 10/17/19 16:00 75 Intake and Output 10/17/19 10/18/19 19:00 07:00 Intake Total 985.0 ml 440 ml Output Total 1500 ml 600 ml Balance -515.0 ml -160 ml Intake Oral 600 ml IV Total 385.0 ml 440 ml Output Urine Total 1500 ml 600 ml # Voids 5 4 Laboratory Tests Test 10/18/19 05:46 White Blood Count 8.9 K/UL (4.8-10.8) Red Blood Count 2.93 M/UL (4.70-6.10) L Hemoglobin 9.2 G/DL (14.2-18.0) L Hematocrit 26.9 % (42.0-52.0) L Mean Corpuscular Volume 92 FL (80-99) Mean Corpuscular Hemoglobin 31.6 PG (27.0-31.0) H Mean Corpuscular Hemoglobin Concent 34.4 G/DL (32.0-36.0) Red Cell Distribution Width 11.8 % (11.6-14.8) Platelet Count 344 K/UL (150-450) Mean Platelet Volume 5.2 FL (6.5-10.1) L Neutrophils (%) (Auto) 65.6 % (45.0-75.0) Lymphocytes (%) (Auto) 18.5 % (20.0-45.0) L Monocytes (%) (Auto) 8.2 % (1.0-10.0) Eosinophils (%) (Auto) 7.2 % (0.0-3.0) H Basophils (%) (Auto) 0.5 % (0.0-2.0) Sodium Level 145 MMOL/L (136-145) Potassium Level 4.2 MMOL/L (3.5-5.1) Chloride Level 108 MMOL/L (98-107) H Carbon Dioxide Level 26 MMOL/L (21-32) Anion Gap 11 mmol/L (5-15) Blood Urea Nitrogen 19 mg/dL (7-18) H Creatinine 1.1 MG/DL (0.55-1.30) Estimat Glomerular Filtration Rate > 60 mL/min (>60) Glucose Level 96 MG/DL (74-106) Calcium Level 9.0 MG/DL (8.5-10.1) Objective HEENT: No JVD .Has drainage from the right ear, also appears to have tenderness over the right side of mastoid, right sinus, right maxilla and frontal sinuses. CHEST: Clear. HEART: S1 and S2. ABDOMEN: Soft and nontender. EXTREMITIES: No cyanosis. NEUROLOGIC: Awake. Lucas Bauer MD Oct 18, 2019 13:57
[2019-10-18] MEDS ORDERED: Miralax 17gm pkt ORAL PRN (19:00)
[2019-10-18] MEDS ORDERED: LORazepam 1mg tab ORAL PRN (19:00)
[2019-10-18] MEDS: Miralax 17gm pkt ORAL SCH (21:38)
[2019-10-18] MEDS: Morphine Sulfate 4mg/ml Inj (IV USE ONLY) IVP PRN (21:48)
[2019-10-19] VITALS: BP 134/72
[2019-10-19 04:00] VITALS: BP 154/80
[2019-10-19] MEDS: ceFAZolin sod 2 GM in D5W 110 ML IVPB SCH ×3 (06:13→22:07)
[2019-10-19] MEDS: NovoLOG Insulin Flexpen SUBQ SCH ×4 (06:22→20:35)
[2019-10-19 07:13] LABS: BASOPHILS % (AUTO) 0.2 % (0.0-2.0); EOSINOPHILS % (AUTO) 5.1 % (0.0-3.0); HEMATOCRIT 29.2 % (42.0-52.0); HEMOGLOBIN 10.1 G/DL (14.2-18.0); MEAN CORPUSCULAR VOLUME 92 FL (80-99); MONOCYTES % (AUTO) 7.1 % (1.0-10.0); NEUTROPHILS % (AUTO) 77.6 % (45.0-75.0); PLATELET COUNT 351 K/UL (150-450); RED BLOOD COUNT 3.16 M/UL (4.70-6.10); RED CELL DISTRIBUTION WIDTH 12.5 % (11.6-14.8); WHITE BLOOD COUNT 11.8 K/UL (4.8-10.8)
[2019-10-19 07:17] LABS: ALANINE AMINOTRANSFERASE 53 U/L (12-78); ALBUMIN 2.5 G/DL (3.4-5.0); ALBUMIN/GLOBULIN RATIO 0.5 (1.0-2.7); ALKALINE PHOSPHATASE 94 U/L (46-116); ANION GAP 4 mmol/L (5-15); ASPARTATE AMINO TRANSFERASE 33 U/L (15-37); BILIRUBIN,TOTAL 0.4 MG/DL (0.2-1.0); BLOOD UREA NITROGEN 14 mg/dL (7-18); CALCIUM 8.8 MG/DL (8.5-10.1); CARBON DIOXIDE 31 MMOL/L (21-32); CHLORIDE 106 MMOL/L (98-107); CREATININE 1.2 MG/DL (0.55-1.30); LACTATE DEHYDROGENASE 143 U/L (81-234); PHOSPHORUS 3.4 MG/DL (2.5-4.9); POTASSIUM 4.6 MMOL/L (3.5-5.1); SODIUM 141 MMOL/L (136-145)
[2019-10-19 08:00] VITALS: BP 155/80
[2019-10-19] MEDS: Aspirin EC 325mg tab ORAL SCH (08:50)
[2019-10-19] MEDS: Docusate 100mg cap ORAL SCH ×2 (08:51→17:10)
[2019-10-19] MEDS: QUEtiapine 200mg tab ORAL SCH ×2 (08:51→20:31)
[2019-10-19] MEDS: Heparin 5000 units/ml inj SUBQ SCH ×2 (08:52→20:35)
--- NOTE | 2019-10-19 10:49 | Cardiac Electrophysiology PN ---
Assessment/Plan Assessment/Plan 1. Inferolateral ischemia on 2 separate ECGs in a patient with HTN and Meth use. Echo Nl EF.No CP . Stress test was nonischemic 2. HTN On Lopressor 25 bid 3. CHF Clinically Euvolemic and EF normal. 4. Right ear otitis FU ENT and ID 5. Bipolar DW RN Subjective Subjective Alert in NAD. No CP or SOB. Tele DCed. Stress test showed no ischemia. Objective Last 24 Hour Vital Signs Date Time Temp Pulse Resp B/P (MAP) Pulse Ox O2 Delivery O2 Flow Rate FiO2 10/19/19 08:51 79 155/80 10/19/19 08:00 98.1 79 16 155/80 (105) 96 10/19/19 04:00 98.0 82 20 154/80 (104) 98 10/19/19 00:00 97.7 81 20 134/72 (92) 98 10/18/19 21:35 87 143/67 10/18/19 21:00 Nasal Cannula 2.0 10/18/19 20:00 98.6 87 20 143/67 (92) 95 10/18/19 16:00 82 10/18/19 16:00 98.2 74 19 132/71 (91) 100 10/18/19 13:05 98.6 86 19 138/71 (93) 99 10/18/19 12:00 98.6 86 19 138/71 (93) 99 10/18/19 12:00 80 Intake and Output 10/18/19 10/19/19 19:00 07:00 Intake Total 950 ml 480 ml Output Total 600 ml 600 ml Balance 350 ml -120 ml Intake Oral 950 ml 480 ml Output Urine Total 600 ml 600 ml # Voids 3 # Bowel Movements 1 Laboratory Tests Test 10/19/19 03:47 10/19/19 06:19 Stool Occult Blood Pending White Blood Count 11.8 K/UL (4.8-10.8) H Red Blood Count 3.16 M/UL (4.70-6.10) L Hemoglobin 10.1 G/DL (14.2-18.0) L Hematocrit 29.2 % (42.0-52.0) L Mean Corpuscular Volume 92 FL (80-99) Mean Corpuscular Hemoglobin 32.0 PG (27.0-31.0) H Mean Corpuscular Hemoglobin Concent 34.6 G/DL (32.0-36.0) Red Cell Distribution Width 12.5 % (11.6-14.8) Platelet Count 351 K/UL (150-450) Mean Platelet Volume 4.9 FL (6.5-10.1) L Neutrophils (%) (Auto) 77.6 % (45.0-75.0) H Lymphocytes (%) (Auto) 10.0 % (20.0-45.0) L Monocytes (%) (Auto) 7.1 % (1.0-10.0) Eosinophils (%) (Auto) 5.1 % (0.0-3.0) H Basophils (%) (Auto) 0.2 % (0.0-2.0) Erythrocyte Sedimentation Rate 118 MM/HR (0-15) H Reticulocyte Count Pending Sodium Level 141 MMOL/L (136-145) Potassium Level 4.6 MMOL/L (3.5-5.1) Chloride Level 106 MMOL/L (98-107) Carbon Dioxide Level 31 MMOL/L (21-32) Anion Gap 4 mmol/L (5-15) L Blood Urea Nitrogen 14 mg/dL (7-18) Creatinine 1.2 MG/DL (0.55-1.30) Estimat Glomerular Filtration Rate > 60 mL/min (>60) Glucose Level 122 MG/DL (74-106) H Calcium Level 8.8 MG/DL (8.5-10.1) Phosphorus Level 3.4 MG/DL (2.5-4.9) Magnesium Level 1.9 MG/DL (1.8-2.4) Total Bilirubin 0.4 MG/DL (0.2-1.0) Aspartate Amino Transf (AST/SGOT) 33 U/L (15-37) Alanine Aminotransferase (ALT/SGPT) 53 U/L (12-78) Alkaline Phosphatase 94 U/L (46-116) Lactate Dehydrogenase 143 U/L (81-234) Total Protein 7.1 G/DL (6.4-8.2) Albumin 2.5 G/DL (3.4-5.0) L Globulin 4.6 g/dL Albumin/Globulin Ratio 0.5 (1.0-2.7) L Objective HEENT: No JVD .Has drainage from the right ear, also appears to have tenderness over the right side of mastoid, right sinus, right maxilla and frontal sinuses. CHEST: Clear. HEART: S1 and S2. ABDOMEN: Soft and nontender. EXTREMITIES: No cyanosis. NEUROLOGIC: Awake. Lucas Bauer MD Oct 19, 2019 10:49
[2019-10-19 12:00] VITALS: BP 151/87
--- NOTE | 2019-10-19 13:23 | Internal Med Progress Note ---
Subjective Physician Name Robin Shin Attending Physician Robin Shin MD Current Medications Medications (Trade) Dose Ordered Sig/Yaima Route PRN Reason Start Time Stop Time Status Last Admin Dose Admin Acetaminophen (Tylenol) 650 mg Q4H PRN ORAL Mild Pain (Pain Scale 1-3) 10/18/19 19:00 11/11/19 18:59 Acetaminophen (Tylenol) 650 mg Q4H PRN ORAL T>100.4 10/18/19 19:00 11/11/19 18:59 Aspirin (Ecotrin) 325 mg DAILY ORAL 10/19/19 09:00 11/12/19 08:59 10/19/19 08:50 Cefazolin Sodium 2 gm/Dextrose 110 ml @ 220 mls/hr Q8HR IVPB 10/18/19 22:00 10/24/19 19:59 10/19/19 06:13 Dextrose (Dextrose 50%) 25 ml Q30M PRN IV Hypoglycemia 10/18/19 18:30 11/11/19 17:29 Dextrose (Dextrose 50%) 50 ml Q30M PRN IV Hypoglycemia 10/18/19 18:30 11/11/19 17:29 Docusate Sodium (Colace) 100 mg TWICE A DAY ORAL 10/19/19 09:00 11/14/19 08:59 10/19/19 08:51 Gabapentin (Neurontin) 300 mg BEDTIME ORAL 10/18/19 21:00 11/11/19 20:59 10/18/19 21:35 Heparin Sodium (Porcine) (Heparin 5000 units/ml) 5,000 units EVERY 12 HOURS SUBQ 10/18/19 21:00 11/11/19 20:59 10/19/19 08:52 Insulin Aspart (NovoLOG) BEFORE MEALS AND HS SUBQ 10/18/19 21:00 11/11/19 20:59 Lorazepam (Ativan) 1 mg Q4H PRN ORAL For Anxiety 10/18/19 19:00 10/19/19 18:59 Metoprolol Tartrate (Lopressor) 25 mg EVERY 12 HOURS ORAL 10/18/19 21:00 11/12/19 20:59 10/19/19 08:51 Morphine Sulfate (Morphine Sulfate) 4 mg Q4H PRN IVP Pain 4-10 10/18/19 19:00 10/21/19 18:59 10/18/19 21:48 Pantoprazole (Protonix) 40 mg DAILY ORAL 10/19/19 09:00 11/12/19 08:59 10/19/19 08:51 Polyethylene Glycol (Miralax) 17 gm BEDTIME ORAL 10/18/19 21:00 11/14/19 20:59 Polyethylene Glycol (Miralax) 17 gm DAILYPRN PRN ORAL Constipation 10/18/19 19:00 11/17/19 18:59 Quetiapine Fumarate (SEROqueL) 200 mg Q12HR ORAL 10/18/19 21:00 11/11/19 20:59 10/19/19 08:51 Allergies: Coded Allergies: EGG (Verified Allergy, Unknown, 10/12/19) VENLAFAXINE (Verified Allergy, Unknown, 10/12/19) Subjective Awake, alert, responsive, complain about headache radiated to the ears on the right side, complained about worsening of headache mostly at night., WBC: 11.8. Objective Last Vital Signs Date Time Temp Pulse Resp B/P (MAP) Pulse Ox O2 Delivery O2 Flow Rate FiO2 10/19/19 12:00 98.1 78 16 151/87 (108) 95 10/19/19 09:00 Room Air 10/18/19 21:00 2.0 Laboratory Tests Test 10/19/19 03:47 10/19/19 06:19 Stool Occult Blood Positive (NEGATIVE) White Blood Count 11.8 K/UL (4.8-10.8) H Red Blood Count 3.16 M/UL (4.70-6.10) L Hemoglobin 10.1 G/DL (14.2-18.0) L Hematocrit 29.2 % (42.0-52.0) L Mean Corpuscular Volume 92 FL (80-99) Mean Corpuscular Hemoglobin 32.0 PG (27.0-31.0) H Mean Corpuscular Hemoglobin Concent 34.6 G/DL (32.0-36.0) Red Cell Distribution Width 12.5 % (11.6-14.8) Platelet Count 351 K/UL (150-450) Mean Platelet Volume 4.9 FL (6.5-10.1) L Neutrophils (%) (Auto) 77.6 % (45.0-75.0) H Lymphocytes (%) (Auto) 10.0 % (20.0-45.0) L Monocytes (%) (Auto) 7.1 % (1.0-10.0) Eosinophils (%) (Auto) 5.1 % (0.0-3.0) H Basophils (%) (Auto) 0.2 % (0.0-2.0) Erythrocyte Sedimentation Rate 118 MM/HR (0-15) H Reticulocyte Count 2.2 % (0.5-2.0) H Sodium Level 141 MMOL/L (136-145) Potassium Level 4.6 MMOL/L (3.5-5.1) Chloride Level 106 MMOL/L (98-107) Carbon Dioxide Level 31 MMOL/L (21-32) Anion Gap 4 mmol/L (5-15) L Blood Urea Nitrogen 14 mg/dL (7-18) Creatinine 1.2 MG/DL (0.55-1.30) Estimat Glomerular Filtration Rate > 60 mL/min (>60) Glucose Level 122 MG/DL (74-106) H Calcium Level 8.8 MG/DL (8.5-10.1) Phosphorus Level 3.4 MG/DL (2.5-4.9) Magnesium Level 1.9 MG/DL (1.8-2.4) Total Bilirubin 0.4 MG/DL (0.2-1.0) Aspartate Amino Transf (AST/SGOT) 33 U/L (15-37) Alanine Aminotransferase (ALT/SGPT) 53 U/L (12-78) Alkaline Phosphatase 94 U/L (46-116) Lactate Dehydrogenase 143 U/L (81-234) Total Protein 7.1 G/DL (6.4-8.2) Albumin 2.5 G/DL (3.4-5.0) L Globulin 4.6 g/dL Albumin/Globulin Ratio 0.5 (1.0-2.7) L Intake and Output 10/18/19 10/19/19 19:00 07:00 Intake Total 950 ml 480 ml Output Total 600 ml 600 ml Balance 350 ml -120 ml Intake Oral 950 ml 480 ml Output Urine Total 600 ml 600 ml # Voids 3 # Bowel Movements 1 Objective General: No acute distress, awake and alert HEENT: NCAT, sclera anicteric, PERRL, EOMI. Neck: Supple, no significant jugular venous distention, Lungs: Good inspiratory effort, clear to auscultation bilaterally, no Wheeze or Rales. Heart: Regular rate and rhythm, normal S1/S2, no murmurs. Abdomen: soft, nontender, nondistended. Normoactive bowel sounds. / Rectal: Refused and deferred. Extremities: No Cyanosis , clubbing or edema. Neuro: A&O x 3, Able to move all extremities Skin: warm, no rashes or lesions Psych: Normal mood and affect Assessment/Plan Assessment/Plan ASSESSMENT: This is a 39-year-old male. 1. Altered mental status most likely secondary to toxic metabolic encephalopathy.. 2. Chronic congestive heart failure. 3. Right-sided headache. 4. [place]. 5. Photophobia. 6. Bipolar disorder. 7. Schizophrenia. 8. Diabetes type 2. 9. Hypertension. 10. Right side mastoid/sinus disease with Otitis media. TREATMENT: 1. Altered mental status-resolving 2. Congestive heart failure. Cardiology consultation has been obtained with Dr. Lucas Bauer. We will follow recommendations of Cardiology. A cardiac Nuclear medicine myocardial Stress test = non ischemic 3. Right-sided headache. The patient will receive Tylenol as needed for headache. A CT scan of the brain in the emergency room failed to demonstrate acute intracranial bleed or mass effect. 4. Bipolar disorder/schizophrenia. Continue Seroquel as above. 5. Diabetes type 2. As above, the patient has been placed on NovoLog sliding scale. 6. Hypertension. The patient is currently off antihypertensive medications. 7. Sinusitis. 8. ENT consult pending for mastoiditis 9. ABX= Ancef IV, per ID=Dr Thompson Charge planning to the SNF. Robin Shin MD Oct 19, 2019 13:23
--- NOTE | 2019-10-19 13:36 | Pulmonology Progress Note ---
Assessment/Plan Problems: (1) Otitis (2) Osteomyelitis of temporal bone (3) Normocytic normochromic anemia (4) Symptomatic anemia (5) Bipolar disorder (6) Schizophrenia Assessment/Plan anemia w/u in progress. iron studies are normal,. Reti count is normal. check blood smear, and LDH and reti count again. continue abx as per ID, Ancef for total of 64 days. stress testing was negative anemia w/u in progress, OB positive, will inform GI afebrile, continue abx. Subjective ROS Limited/Unobtainable: No Constitutional: Reports: no symptoms HEENT: Repors: no symptoms Respiratory: Reports: no symptoms Allergies: Coded Allergies: EGG (Verified Allergy, Unknown, 10/12/19) VENLAFAXINE (Verified Allergy, Unknown, 10/12/19) Objective Last 24 Hour Vital Signs Date Time Temp Pulse Resp B/P (MAP) Pulse Ox O2 Delivery O2 Flow Rate FiO2 10/19/19 12:00 98.1 78 16 151/87 (108) 95 10/19/19 09:00 Room Air 10/19/19 08:51 79 155/80 10/19/19 08:00 98.1 79 16 155/80 (105) 96 10/19/19 04:00 98.0 82 20 154/80 (104) 98 10/19/19 00:00 97.7 81 20 134/72 (92) 98 10/18/19 21:35 87 143/67 10/18/19 21:00 Nasal Cannula 2.0 10/18/19 20:00 98.6 87 20 143/67 (92) 95 10/18/19 16:00 82 10/18/19 16:00 98.2 74 19 132/71 (91) 100 Intake and Output 10/18/19 10/19/19 19:00 07:00 Intake Total 950 ml 480 ml Output Total 600 ml 600 ml Balance 350 ml -120 ml Intake Oral 950 ml 480 ml Output Urine Total 600 ml 600 ml # Voids 3 # Bowel Movements 1 General Appearance: WD/WN HEENT: normocephalic, atraumatic Respiratory/Chest: chest wall non-tender, lungs clear Cardiovascular: normal peripheral pulses, normal rate Abdomen: normal bowel sounds, soft, non tender Genitourinary: normal external genitalia Skin: no rash Laboratory Tests 10/19/19 03:47: Stool Occult Blood Positive 10/19/19 06:19: White Blood Count 11.8H, Red Blood Count 3.16L, Hemoglobin 10.1L, Hematocrit 29.2L, Mean Corpuscular Volume 92, Mean Corpuscular Hemoglobin 32.0H, Mean Corpuscular Hemoglobin Concent 34.6, Red Cell Distribution Width 12.5, Platelet Count 351, Mean Platelet Volume 4.9L, Neutrophils (%) (Auto) 77.6H, Lymphocytes (%) (Auto) 10.0L, Monocytes (%) (Auto) 7.1, Eosinophils (%) (Auto) 5.1H, Basophils (%) (Auto) 0.2, Erythrocyte Sedimentation Rate 118H, Reticulocyte Count 2.2H, Sodium Level 141, Potassium Level 4.6, Chloride Level 106, Carbon Dioxide Level 31, Anion Gap 4L, Blood Urea Nitrogen 14, Creatinine 1.2, Estimat Glomerular Filtration Rate > 60, Glucose Level 122H, Calcium Level 8.8, Phosphorus Level 3.4, Magnesium Level 1.9, Total Bilirubin 0.4, Aspartate Amino Transf (AST/SGOT) 33, Alanine Aminotransferase (ALT/SGPT) 53, Alkaline Phosphatase 94, Lactate Dehydrogenase 143, Total Protein 7.1, Albumin 2.5L, Globulin 4.6, Albumin/Globulin Ratio 0.5L Current Medications Medications (Trade) Dose Ordered Sig/Yaima Route PRN Reason Start Time Stop Time Status Last Admin Dose Admin Acetaminophen (Tylenol) 650 mg Q4H PRN ORAL Mild Pain (Pain Scale 1-3) 10/18/19 19:00 11/11/19 18:59 Acetaminophen (Tylenol) 650 mg Q4H PRN ORAL T>100.4 10/18/19 19:00 11/11/19 18:59 Aspirin (Ecotrin) 325 mg DAILY ORAL 10/19/19 09:00 11/12/19 08:59 10/19/19 08:50 Cefazolin Sodium 2 gm/Dextrose 110 ml @ 220 mls/hr Q8HR IVPB 10/18/19 22:00 10/24/19 19:59 10/19/19 06:13 Dextrose (Dextrose 50%) 25 ml Q30M PRN IV Hypoglycemia 10/18/19 18:30 11/11/19 17:29 Dextrose (Dextrose 50%) 50 ml Q30M PRN IV Hypoglycemia 10/18/19 18:30 11/11/19 17:29 Docusate Sodium (Colace) 100 mg TWICE A DAY ORAL 10/19/19 09:00 11/14/19 08:59 10/19/19 08:51 Gabapentin (Neurontin) 300 mg BEDTIME ORAL 10/18/19 21:00 11/11/19 20:59 10/18/19 21:35 Heparin Sodium (Porcine) (Heparin 5000 units/ml) 5,000 units EVERY 12 HOURS SUBQ 10/18/19 21:00 11/11/19 20:59 10/19/19 08:52 Insulin Aspart (NovoLOG) BEFORE MEALS AND HS SUBQ 10/18/19 21:00 11/11/19 20:59 Lorazepam (Ativan) 1 mg Q4H PRN ORAL For Anxiety 10/18/19 19:00 10/19/19 18:59 Metoprolol Tartrate (Lopressor) 25 mg EVERY 12 HOURS ORAL 10/18/19 21:00 11/12/19 20:59 10/19/19 08:51 Morphine Sulfate (Morphine Sulfate) 4 mg Q4H PRN IVP Pain 4-10 10/18/19 19:00 10/21/19 18:59 10/18/19 21:48 Pantoprazole (Protonix) 40 mg DAILY ORAL 10/19/19 09:00 11/12/19 08:59 10/19/19 08:51 Polyethylene Glycol (Miralax) 17 gm BEDTIME ORAL 10/18/19 21:00 11/14/19 20:59 Polyethylene Glycol (Miralax) 17 gm DAILYPRN PRN ORAL Constipation 10/18/19 19:00 11/17/19 18:59 Quetiapine Fumarate (SEROqueL) 200 mg Q12HR ORAL 10/18/19 21:00 11/11/19 20:59 10/19/19 08:51 Kati Gamble MD Oct 19, 2019 13:36
--- NOTE | 2019-10-19 15:31 | Infectious Diseases Prog Note ---
Assessment/Plan Assessment/Plan ASSESSMENT: The patient is a 39-year-old male with: Right-sided mastoid and sinus disease and otitis media (coverage for Pseudomonas and possible MRSA), -head CT: Abnormal right temporal bone, with opacification of the right mastoid air cells, probably the middle ear cavity, and of the external auditory canal. Per discussion with referring physician, patient has evidence of otitis with pus coming out of the ear. In addition, there is slight indistinctness of the anterior margin of the temporal bone as compared to the left, which could indicate bony erosive changes.Consider further evaluation with temporal bone CT and/or MRI. No evidence of associated brain abscess. -Bcx NTD -ear cx Staph and Strep Diabetes. History of neuropathy. Hypertension. Bipolar disorder. Schizophrenia. History of back surgery due to the fall PLAN: cont pt on Ancef # 12/ 64 3/ sp IV Zosyn # 5 and vancomycin day # 5 Monitor CBC. Monitor BMP. Monitor cultures (blood). [facility] ENT Dr Stockton who wont see this pt in consultation but recommended to be transferred out to a different center for mastoidectomy the above was DW PCP and pul Subjective Allergies: Coded Allergies: EGG (Verified Allergy, Unknown, 10/12/19) VENLAFAXINE (Verified Allergy, Unknown, 10/12/19) Subjective comfortable Objective Vital Signs Last 24 Hour Vital Signs Date Time Temp Pulse Resp B/P (MAP) Pulse Ox O2 Delivery O2 Flow Rate FiO2 10/19/19 12:00 98.1 78 16 151/87 (108) 95 10/19/19 09:00 Room Air 10/19/19 08:51 79 155/80 10/19/19 08:00 98.1 79 16 155/80 (105) 96 10/19/19 04:00 98.0 82 20 154/80 (104) 98 10/19/19 00:00 97.7 81 20 134/72 (92) 98 10/18/19 21:35 87 143/67 10/18/19 21:00 Nasal Cannula 2.0 10/18/19 20:00 98.6 87 20 143/67 (92) 95 10/18/19 16:00 82 10/18/19 16:00 98.2 74 19 132/71 (91) 100 Height (Feet): 5 Height (Inches): 6.00 Weight (Pounds): 213 HEENT: anicteric Respiratory/Chest: no accessory muscle use Cardiovascular: normal peripheral pulses Abdomen: soft, non tender Laboratory Tests Test 10/19/19 03:47 10/19/19 06:19 Stool Occult Blood Positive (NEGATIVE) White Blood Count 11.8 K/UL (4.8-10.8) H Red Blood Count 3.16 M/UL (4.70-6.10) L Hemoglobin 10.1 G/DL (14.2-18.0) L Hematocrit 29.2 % (42.0-52.0) L Mean Corpuscular Volume 92 FL (80-99) Mean Corpuscular Hemoglobin 32.0 PG (27.0-31.0) H Mean Corpuscular Hemoglobin Concent 34.6 G/DL (32.0-36.0) Red Cell Distribution Width 12.5 % (11.6-14.8) Platelet Count 351 K/UL (150-450) Mean Platelet Volume 4.9 FL (6.5-10.1) L Neutrophils (%) (Auto) 77.6 % (45.0-75.0) H Lymphocytes (%) (Auto) 10.0 % (20.0-45.0) L Monocytes (%) (Auto) 7.1 % (1.0-10.0) Eosinophils (%) (Auto) 5.1 % (0.0-3.0) H Basophils (%) (Auto) 0.2 % (0.0-2.0) Erythrocyte Sedimentation Rate 118 MM/HR (0-15) H Reticulocyte Count 2.2 % (0.5-2.0) H Sodium Level 141 MMOL/L (136-145) Potassium Level 4.6 MMOL/L (3.5-5.1) Chloride Level 106 MMOL/L (98-107) Carbon Dioxide Level 31 MMOL/L (21-32) Anion Gap 4 mmol/L (5-15) L Blood Urea Nitrogen 14 mg/dL (7-18) Creatinine 1.2 MG/DL (0.55-1.30) Estimat Glomerular Filtration Rate > 60 mL/min (>60) Glucose Level 122 MG/DL (74-106) H Calcium Level 8.8 MG/DL (8.5-10.1) Phosphorus Level 3.4 MG/DL (2.5-4.9) Magnesium Level 1.9 MG/DL (1.8-2.4) Total Bilirubin 0.4 MG/DL (0.2-1.0) Aspartate Amino Transf (AST/SGOT) 33 U/L (15-37) Alanine Aminotransferase (ALT/SGPT) 53 U/L (12-78) Alkaline Phosphatase 94 U/L (46-116) Lactate Dehydrogenase 143 U/L (81-234) Total Protein 7.1 G/DL (6.4-8.2) Albumin 2.5 G/DL (3.4-5.0) L Globulin 4.6 g/dL Albumin/Globulin Ratio 0.5 (1.0-2.7) L Current Medications Medications (Trade) Dose Ordered Sig/Yaima Route PRN Reason Start Time Stop Time Status Last Admin Dose Admin Acetaminophen (Tylenol) 650 mg Q4H PRN ORAL Mild Pain (Pain Scale 1-3) 10/18/19 19:00 11/11/19 18:59 Acetaminophen (Tylenol) 650 mg Q4H PRN ORAL T>100.4 10/18/19 19:00 11/11/19 18:59 Aspirin (Ecotrin) 325 mg DAILY ORAL 10/19/19 09:00 11/12/19 08:59 10/19/19 08:50 Cefazolin Sodium 2 gm/Dextrose 110 ml @ 220 mls/hr Q8HR IVPB 10/18/19 22:00 10/24/19 19:59 10/19/19 13:56 Dextrose (Dextrose 50%) 25 ml Q30M PRN IV Hypoglycemia 10/18/19 18:30 11/11/19 17:29 Dextrose (Dextrose 50%) 50 ml Q30M PRN IV Hypoglycemia 10/18/19 18:30 11/11/19 17:29 Docusate Sodium (Colace) 100 mg TWICE A DAY ORAL 10/19/19 09:00 11/14/19 08:59 10/19/19 08:51 Gabapentin (Neurontin) 300 mg BEDTIME ORAL 10/18/19 21:00 11/11/19 20:59 10/18/19 21:35 Heparin Sodium (Porcine) (Heparin 5000 units/ml) 5,000 units EVERY 12 HOURS SUBQ 10/18/19 21:00 11/11/19 20:59 10/19/19 08:52 Insulin Aspart (NovoLOG) BEFORE MEALS AND HS SUBQ 10/18/19 21:00 11/11/19 20:59 Lorazepam (Ativan) 1 mg Q4H PRN ORAL For Anxiety 10/18/19 19:00 10/19/19 18:59 Metoprolol Tartrate (Lopressor) 25 mg EVERY 12 HOURS ORAL 10/18/19 21:00 11/12/19 20:59 10/19/19 08:51 Morphine Sulfate (Morphine Sulfate) 4 mg Q4H PRN IVP Pain 4-10 10/18/19 19:00 10/21/19 18:59 10/18/19 21:48 Pantoprazole (Protonix) 40 mg DAILY ORAL 10/19/19 09:00 11/12/19 08:59 10/19/19 08:51 Polyethylene Glycol (Miralax) 17 gm BEDTIME ORAL 10/18/19 21:00 11/14/19 20:59 Polyethylene Glycol (Miralax) 17 gm DAILYPRN PRN ORAL Constipation 10/18/19 19:00 11/17/19 18:59 Quetiapine Fumarate (SEROqueL) 200 mg Q12HR ORAL 10/18/19 21:00 11/11/19 20:59 10/19/19 08:51 Munir Thompson MD Oct 19, 2019 15:31
[2019-10-19 16:00] VITALS: BP 143/72
[2019-10-19 20:00] VITALS: BP 145/72
[2019-10-19] MEDS: Morphine Sulfate 4mg/ml Inj (IV USE ONLY) IVP PRN (20:32)
[2019-10-19] MEDS: Miralax 17gm pkt ORAL SCH (20:35)
[2019-10-20] VITALS: BP 143/79
[2019-10-20 04:00] VITALS: BP 121/76
[2019-10-20] MEDS: ceFAZolin sod 2 GM in D5W 110 ML IVPB SCH ×3 (05:19→21:52)
--- NOTE | 2019-10-20 05:30 | Progress Note ---
DATE: 10/19/2019 SUBJECTIVE: The patient is in bed, no acute distress noted. The patient has flat affect. Not engaged during the evaluation. Poor insight. Poor memory. Easily irritable. MENTAL STATUS EXAMINATION: Alert and oriented times self, place, and situation. Mood is irritable. Affect is constricted, congruent with mood. Thought process is concrete. Thought content, no suicidal or homicidal ideation. Cognition is impaired. Insight and judgment are impaired. ASSESSMENT: Schizoaffective disorder. PLAN: 1. Continue the Seroquel 200 b.i.d. 2. Provide the patient with reality orientation and supportive therapy. Grace Diaz M.D. DR: YANE JOB#: [id number] CC: JOANNA
[2019-10-20] MEDS: NovoLOG Insulin Flexpen SUBQ SCH ×4 (06:30→20:57)
--- NOTE | 2019-10-20 07:50 | Cardiac Electrophysiology PN ---
Assessment/Plan Assessment/Plan 1. Inferolateral ischemia on 2 separate ECGs in a patient with HTN and Meth use. Nl EF.No CP. Stress test nonischemic 2. HTN On Lopressor 25 bid 3. CHF Clinically Euvolemic and EF normal. 4. Right ear otitis FU ENT and ID 5. Bipolar DW RN Subjective Subjective Alert in NAD. No CP or SOB. Refused FS checks per RN Objective Last 24 Hour Vital Signs Date Time Temp Pulse Resp B/P (MAP) Pulse Ox O2 Delivery O2 Flow Rate FiO2 10/20/19 04:00 97.6 81 18 121/76 (91) 98 10/20/19 00:00 98.3 86 20 143/79 (100) 96 10/19/19 21:00 Nasal Cannula 2.0 10/19/19 20:31 82 145/72 10/19/19 20:00 98.1 82 18 145/72 (96) 96 10/19/19 16:00 98.1 85 16 143/72 (95) 94 10/19/19 12:00 98.1 78 16 151/87 (108) 95 10/19/19 09:00 Room Air 10/19/19 08:51 79 155/80 10/19/19 08:00 98.1 79 16 155/80 (105) 96 Intake and Output 10/19/19 10/20/19 19:00 07:00 Intake Total 810 ml 720 ml Output Total 600 ml Balance 210 ml 720 ml Intake Oral 700 ml 500 ml IV Total 110 ml 220 ml Output Urine Total 600 ml # Voids 3 3 Objective HEENT: No JVD .Has drainage from the right ear, also appears to have tenderness over the right side of mastoid, right sinus, right maxilla and frontal sinuses. CHEST: Clear. HEART: S1 and S2. ABDOMEN: Soft and nontender. EXTREMITIES: No cyanosis. NEUROLOGIC: Awake. Lucas Bauer MD Oct 20, 2019 07:50
[2019-10-20 08:00] VITALS: BP 142/79
--- NOTE | 2019-10-20 09:24 | Infectious Diseases Prog Note ---
Assessment/Plan Assessment/Plan ASSESSMENT: The patient is a 39-year-old male with: Right-sided mastoid and sinus disease and otitis media (coverage for Pseudomonas and possible MRSA), -head CT: Abnormal right temporal bone, with opacification of the right mastoid air cells, probably the middle ear cavity, and of the external auditory canal. Per discussion with referring physician, patient has evidence of otitis with pus coming out of the ear. In addition, there is slight indistinctness of the anterior margin of the temporal bone as compared to the left, which could indicate bony erosive changes.Consider further evaluation with temporal bone CT and/or MRI. No evidence of associated brain abscess. -Bcx NTD -ear cx Staph and Strep Diabetes. History of neuropathy. Hypertension. Bipolar disorder. Schizophrenia. History of back surgery due to the fall PLAN: cont pt on Ancef # 13/ 64 3/ sp IV Zosyn # 5 and vancomycin day # 5 Monitor CBC. Monitor BMP. Monitor cultures (blood) DW ENT Dr Stockton who wont see this pt in consultation but recommended to be transferred out to a different center for mastoidectomy (10/19) the above was DW PCP and pul Subjective Allergies: Coded Allergies: EGG (Verified Allergy, Unknown, 10/12/19) VENLAFAXINE (Verified Allergy, Unknown, 10/12/19) Subjective wbc increases no fever Objective Vital Signs Last 24 Hour Vital Signs Date Time Temp Pulse Resp B/P (MAP) Pulse Ox O2 Delivery O2 Flow Rate FiO2 10/20/19 04:00 97.6 81 18 121/76 (91) 98 10/20/19 00:00 98.3 86 20 143/79 (100) 96 10/19/19 21:00 Nasal Cannula 2.0 10/19/19 20:31 82 145/72 10/19/19 20:00 98.1 82 18 145/72 (96) 96 10/19/19 16:00 98.1 85 16 143/72 (95) 94 10/19/19 12:00 98.1 78 16 151/87 (108) 95 Height (Feet): 5 Height (Inches): 6.00 Weight (Pounds): 213 Respiratory/Chest: normal breath sounds Cardiovascular: regularly irregular Abdomen: no organomegaly Current Medications Medications (Trade) Dose Ordered Sig/Yaima Route PRN Reason Start Time Stop Time Status Last Admin Dose Admin Acetaminophen (Tylenol) 650 mg Q4H PRN ORAL Mild Pain (Pain Scale 1-3) 10/18/19 19:00 11/11/19 18:59 Acetaminophen (Tylenol) 650 mg Q4H PRN ORAL T>100.4 10/18/19 19:00 11/11/19 18:59 Aspirin (Ecotrin) 325 mg DAILY ORAL 10/19/19 09:00 11/12/19 08:59 10/19/19 08:50 Cefazolin Sodium 2 gm/Dextrose 110 ml @ 220 mls/hr Q8HR IVPB 10/18/19 22:00 10/24/19 19:59 10/20/19 05:19 Dextrose (Dextrose 50%) 25 ml Q30M PRN IV Hypoglycemia 10/18/19 18:30 11/11/19 17:29 Dextrose (Dextrose 50%) 50 ml Q30M PRN IV Hypoglycemia 10/18/19 18:30 11/11/19 17:29 Docusate Sodium (Colace) 100 mg TWICE A DAY ORAL 10/19/19 09:00 11/14/19 08:59 10/19/19 17:10 Gabapentin (Neurontin) 300 mg BEDTIME ORAL 10/18/19 21:00 11/11/19 20:59 10/19/19 20:32 Heparin Sodium (Porcine) (Heparin 5000 units/ml) 5,000 units EVERY 12 HOURS SUBQ 10/18/19 21:00 11/11/19 20:59 10/19/19 20:35 Insulin Aspart (NovoLOG) BEFORE MEALS AND HS SUBQ 10/18/19 21:00 11/11/19 20:59 Metoprolol Tartrate (Lopressor) 25 mg EVERY 12 HOURS ORAL 10/18/19 21:00 11/12/19 20:59 10/19/19 20:31 Morphine Sulfate (Morphine Sulfate) 4 mg Q4H PRN IVP Pain 4-10 10/18/19 19:00 10/21/19 18:59 10/19/19 20:32 Pantoprazole (Protonix) 40 mg DAILY ORAL 10/19/19 09:00 11/12/19 08:59 10/19/19 08:51 Polyethylene Glycol (Miralax) 17 gm BEDTIME ORAL 10/18/19 21:00 11/14/19 20:59 Polyethylene Glycol (Miralax) 17 gm DAILYPRN PRN ORAL Constipation 10/18/19 19:00 11/17/19 18:59 Quetiapine Fumarate (SEROqueL) 200 mg Q12HR ORAL 10/18/19 21:00 11/11/19 20:59 10/19/19 20:31 Munir Thompson MD Oct 20, 2019 09:23
[2019-10-20] MEDS: Docusate 100mg cap ORAL SCH ×2 (09:46→18:00)
[2019-10-20] MEDS: Aspirin EC 325mg tab ORAL SCH (09:47)
[2019-10-20] MEDS: QUEtiapine 200mg tab ORAL SCH ×2 (09:47→20:54)
[2019-10-20] MEDS: Heparin 5000 units/ml inj SUBQ SCH ×2 (09:48→20:57)
[2019-10-20] MEDS ORDERED: Meclizine 25mg tab ORAL PRN (11:00)
[2019-10-20] MEDS ORDERED: Promethazine Plain 6.25mg/5ml ORAL PRN (11:00)
--- NOTE | 2019-10-20 11:00 | GI Initial Consult Note ---
History of Present Illness General Date patient seen: Oct 20, 2019 Time patient seen: 10:48 Reason for Hospitalization: Dizziness Referring physician: STACEY HANSEN Reason for Consultation: OB STOOL POSITIVE Present Illness HPI 39-year-old male with history of neuropathy here from boarding care due to feeling dizzy before taking shower earlier today. Patient denies any head injury and falling. Patient appears to be pale, no neurovascular deficits noted. Patient denies any generalized or unilateral weakness. Reports that for the past 2 weeks has been having left ear pain. Pus drainage noted to the right ear. Complains of vertigo. Complains of dizziness. Denies hearing loss , tinnitus, nausea vomiting. 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 Patient also reports that he has history of drug abuse however has not used in in a long time. Patient is in mild distress. Denies chest pain, shortness of breath, palpitation, headache and dizziness. Complains of weakness. GI consulted for reported occult blood stool positive. Patient seen, awake alert oriented x4 no apparent distress. At time of evaluation, the patient has complaint of generalized weakness and fatigue. The patient denies any abdominal pain. Denies any nausea vomiting, constipation or diarrhea. Patient notes he does not notice any signs or symptoms of any active bleeding. Abdomen is soft, nontender nondistended with no rebounding or guarding noted. No peritoneal signs noted. Laboratory review note that the patient's hemoglobin is 10.1, hematocrit 29.2, WBC 11.8, platelet count of 351, INR 1.0. Anemia work -up shows no iron deficiency, no vitamin B12 or folate deficiency. The patient denies any history of endoscopic or colonoscopy. Home Meds Reported Medications Quetiapine Fumarate (QUETIAPINE FUMARATE) 300 Mg Tablet, 300 MG ORAL DAILY for , TAB 10/12/19 Gabapentin* (GABAPENTIN*) 300 Mg Capsule, 300 MG ORAL BEDTIME for , CAP 10/12/19 Med list reviewed/reconciled: Yes Allergies: Coded Allergies: EGG (Verified Allergy, Unknown, 10/12/19) VENLAFAXINE (Verified Allergy, Unknown, 10/12/19) Patient History History Provided By: Patient, Medical Record PMH Narrative Past Medical History: see triage record Past Surgical History: unable to obtain Pertinent Family History: unable to obtain Immunizations: UTD Reviewed Nursing Documentation: PMH: Agreed; PSxH: Agreed Nursing Documentation-PMH Hx Diabetes: Yes History Of Psychiatric Problem: Yes Hx Dizziness: Yes Hx Weakness: Yes Social History: Denies: smoking, alcohol use, drug use, other Review of Systems All Other Systems: negative except mentioned in HPI Physical Exam Vital Signs Date Time Temp Pulse Resp B/P (MAP) Pulse Ox O2 Delivery O2 Flow Rate FiO2 10/16/19 07:45 74 10/16/19 08:00 98.2 20 129/76 (93) 96 10/16/19 09:00 Nasal Cannula 2.0 Sp02 EP Interpretation: reviewed, normal General Appearance: well appearing, no apparent distress, alert Head: normocephalic EENT: PERRL/EOMI, normal ENT inspection Neck: supple Respiratory: normal breath sounds, no respiratory distress Cardiovascular: normal rate Gastrointestinal: normal inspection, non tender, soft, normal bowel sounds, non -distended Rectal: deferred Genitourinary: deferred Musculoskeletal: normal inspection, back normal Neurologic: alert, oriented x3, responsive, normal inspection Psychiatric: normal inspection, judgement/insight normal, memory normal Skin: normal inspection, normal color, no rash, warm/dry, palpation normal, well hydrated Lymphatic: normal inspection, no adenopathy Current Medications Current Medications Medications (Trade) Dose Ordered Sig/Yaima Route PRN Reason Start Time Stop Time Status Last Admin Dose Admin Acetaminophen (Tylenol) 650 mg Q4H PRN ORAL Mild Pain (Pain Scale 1-3) 10/18/19 19:00 11/11/19 18:59 Acetaminophen (Tylenol) 650 mg Q4H PRN ORAL T>100.4 10/18/19 19:00 11/11/19 18:59 Aspirin (Ecotrin) 325 mg DAILY ORAL 10/19/19 09:00 11/12/19 08:59 10/20/19 09:47 Cefazolin Sodium 2 gm/Dextrose 110 ml @ 220 mls/hr Q8HR IVPB 10/18/19 22:00 10/24/19 19:59 10/20/19 05:19 Dextrose (Dextrose 50%) 25 ml Q30M PRN IV Hypoglycemia 10/18/19 18:30 11/11/19 17:29 Dextrose (Dextrose 50%) 50 ml Q30M PRN IV Hypoglycemia 10/18/19 18:30 11/11/19 17:29 Docusate Sodium (Colace) 100 mg TWICE A DAY ORAL 10/19/19 09:00 11/14/19 08:59 10/20/19 09:46 Gabapentin (Neurontin) 300 mg BEDTIME ORAL 10/18/19 21:00 11/11/19 20:59 10/19/19 20:32 Heparin Sodium (Porcine) (Heparin 5000 units/ml) 5,000 units EVERY 12 HOURS SUBQ 10/18/19 21:00 11/11/19 20:59 10/20/19 09:48 Insulin Aspart (NovoLOG) BEFORE MEALS AND HS SUBQ 10/18/19 21:00 11/11/19 20:59 Metoprolol Tartrate (Lopressor) 25 mg EVERY 12 HOURS ORAL 10/18/19 21:00 11/12/19 20:59 10/20/19 09:47 Morphine Sulfate (Morphine Sulfate) 4 mg Q4H PRN IVP Pain 4-10 10/18/19 19:00 10/21/19 18:59 10/19/19 20:32 Pantoprazole (Protonix) 40 mg DAILY ORAL 10/19/19 09:00 11/12/19 08:59 10/20/19 09:47 Polyethylene Glycol (Miralax) 17 gm BEDTIME ORAL 10/18/19 21:00 11/14/19 20:59 Polyethylene Glycol (Miralax) 17 gm DAILYPRN PRN ORAL Constipation 10/18/19 19:00 11/17/19 18:59 Quetiapine Fumarate (SEROqueL) 200 mg Q12HR ORAL 10/18/19 21:00 11/11/19 20:59 10/20/19 09:47 GI: Plan Problems: (1) Anemia (2) Dizziness (3) Symptomatic anemia Plan This is a 39-year-old male patient with history of neuropathy presented with complaint of dizziness, generalized weakness and right ear pain. During admission, patient presented with a positive occult blood stool. Differentials includes gastric versus duodenal ulcer, severe esophagitis versus gastritis, hemorrhoidal bleed. #Anemia Patient refusing any endoscopy procedures at this time. Given that the patient's hemoglobin has been stable during admission, no plans for additional work-up. Anemia work-up reviewed >> no iron deficiency, no B12 or folate deficiency, no signs of bone marrow suppression Continue to monitor patient's H&H, look for signs of drop We will order additional occult blood stool to evaluate GI bleed Place patient on PPI if not already done #Dizziness We will add meclizine as needed, promethazine for any persistent nausea or vomiting Antibiotics per infectious diseases for right ear (+)culture We will follow on a daily basis with any additional recommendations Discussed with Dr. Stockton. Thank you for this patient referral, we will follow. The patient was seen and examined at bedside and all new and available data was reviewed in the patients chart. I agree with the above findings, impression and plan. (Patient seen earlier today. Signature stamp does not reflect patient encounter time.). - MD Rosana Daily Anh-Jonas HILLIARD Oct 20, 2019 11:00
[2019-10-20 12:00] VITALS: BP 150/88
--- NOTE | 2019-10-20 12:28 | Pulmonology Progress Note ---
Assessment/Plan Problems: (1) Otitis (2) Osteomyelitis of temporal bone (3) Normocytic normochromic anemia (4) Symptomatic anemia (5) Bipolar disorder (6) Schizophrenia Assessment/Plan anemia w/u in progress. iron studies are normal,. Reti count is normal. check blood smear, and LDH and reti count again. continue abx as per ID, Ancef for total of 64 days. stress testing was negative anemia w/u in progress, OB positive, GI consult appreciated. No procedures are planned afebrile, continue abx. pt is to be transferred to higher level of care. Dr. Curtis at [facility] informed about the need for transfer. Subjective ROS Limited/Unobtainable: No Constitutional: Reports: no symptoms HEENT: Repors: no symptoms Allergies: Coded Allergies: EGG (Verified Allergy, Unknown, 10/12/19) VENLAFAXINE (Verified Allergy, Unknown, 10/12/19) Objective Last 24 Hour Vital Signs Date Time Temp Pulse Resp B/P (MAP) Pulse Ox O2 Delivery O2 Flow Rate FiO2 10/20/19 09:47 85 149/72 10/20/19 09:00 Nasal Cannula 2.0 10/20/19 08:00 98.0 85 20 142/79 (100) 100 10/20/19 04:00 97.6 81 18 121/76 (91) 98 10/20/19 00:00 98.3 86 20 143/79 (100) 96 10/19/19 21:00 Nasal Cannula 2.0 10/19/19 20:31 82 145/72 10/19/19 20:00 98.1 82 18 145/72 (96) 96 10/19/19 16:00 98.1 85 16 143/72 (95) 94 Intake and Output 10/19/19 10/20/19 19:00 07:00 Intake Total 810 ml 720 ml Output Total 600 ml Balance 210 ml 720 ml Intake Oral 700 ml 500 ml IV Total 110 ml 220 ml Output Urine Total 600 ml # Voids 3 3 General Appearance: WD/WN HEENT: normocephalic, atraumatic Respiratory/Chest: chest wall non-tender, lungs clear Cardiovascular: normal peripheral pulses, normal rate Abdomen: normal bowel sounds, soft, non tender Extremities: no clubbing Skin: no lesions Current Medications Medications (Trade) Dose Ordered Sig/Yaima Route PRN Reason Start Time Stop Time Status Last Admin Dose Admin Acetaminophen (Tylenol) 650 mg Q4H PRN ORAL Mild Pain (Pain Scale 1-3) 10/18/19 19:00 11/11/19 18:59 Acetaminophen (Tylenol) 650 mg Q4H PRN ORAL T>100.4 10/18/19 19:00 11/11/19 18:59 Aspirin (Ecotrin) 325 mg DAILY ORAL 10/19/19 09:00 11/12/19 08:59 10/20/19 09:47 Cefazolin Sodium 2 gm/Dextrose 110 ml @ 220 mls/hr Q8HR IVPB 10/18/19 22:00 10/24/19 19:59 10/20/19 05:19 Dextrose (Dextrose 50%) 25 ml Q30M PRN IV Hypoglycemia 10/18/19 18:30 11/11/19 17:29 Dextrose (Dextrose 50%) 50 ml Q30M PRN IV Hypoglycemia 10/18/19 18:30 11/11/19 17:29 Docusate Sodium (Colace) 100 mg TWICE A DAY ORAL 10/19/19 09:00 11/14/19 08:59 10/20/19 09:46 Gabapentin (Neurontin) 300 mg BEDTIME ORAL 10/18/19 21:00 11/11/19 20:59 10/19/19 20:32 Heparin Sodium (Porcine) (Heparin 5000 units/ml) 5,000 units EVERY 12 HOURS SUBQ 10/18/19 21:00 11/11/19 20:59 10/20/19 09:48 Insulin Aspart (NovoLOG) BEFORE MEALS AND HS SUBQ 10/18/19 21:00 11/11/19 20:59 Meclizine HCl (Antivert) 25 mg Q6H PRN ORAL for dizziness 10/20/19 11:00 11/19/19 10:59 Metoprolol Tartrate (Lopressor) 25 mg EVERY 12 HOURS ORAL 10/18/19 21:00 11/12/19 20:59 10/20/19 09:47 Morphine Sulfate (Morphine Sulfate) 4 mg Q4H PRN IVP Pain 4-10 10/18/19 19:00 10/21/19 18:59 10/19/19 20:32 Pantoprazole (Protonix) 40 mg DAILY ORAL 10/19/19 09:00 11/12/19 08:59 10/20/19 09:47 Polyethylene Glycol (Miralax) 17 gm BEDTIME ORAL 10/18/19 21:00 11/14/19 20:59 Polyethylene Glycol (Miralax) 17 gm DAILYPRN PRN ORAL Constipation 10/18/19 19:00 11/17/19 18:59 Promethazine HCl (Phenergan Plain) 6.25 mg Q6H PRN ORAL Nausea & Vomiting 10/20/19 11:00 11/19/19 10:59 Quetiapine Fumarate (SEROqueL) 200 mg Q12HR ORAL 10/18/19 21:00 11/11/19 20:59 10/20/19 09:47 Kati Gamble MD Oct 20, 2019 12:28
[2019-10-20] MEDS: Morphine Sulfate 4mg/ml Inj (IV USE ONLY) IVP PRN ×2 (14:45→20:56)
--- NOTE | 2019-10-20 15:49 | Discharge Instructions ---
Discharge Instructions Discharge Instructions Follow up with: HIGHER LEVEL OF CARE, ENT EVALUATION FOR MASTEIDECTOMY Services at Discharge: other - HIGHER LEVEL OF CARE NEEED Diet: regular Resume Normal Activity?: No Activity: as tolerated Follow Up Orders NEEDS EVALUATION BY ENT AT HIGHER LEVEL OF CARE [facility] Return to Work/School on: Nov 06, 2019 For Congestive Heart Failure Reminder Report to your physician any weight gain of 5 pounds or more in one week. Sandor Knight MD Oct 20, 2019 15:49
[2019-10-20 16:00] VITALS: BP 147/76
--- NOTE | 2019-10-20 16:00 | Discharge Summary ---
Discharge Summary Hospital Course Date of Admission Oct 12, 2019 at 15:13 Date of Discharge 10/20/19 Admitting Diagnosis symptomatic anemia, weakness, HPI Dallas Alejandro Jr is a 39 year old male who was admitted on Oct 12, 2019 at 15:13 for Symptomatic Anemia, Weakness Consultations ENT GI ID Procedures NONE Hospital Course 39 year old male with history of schizophrenia who lives at a board and care. He was noted to be confused and BIBA for evaluation. Initial workup CT head was negative for intracranial abnormality and there was abnormality i nthe R TEMPORAL BONE CONCERNING FOR MASTOIDITIS/OTITIS. He was started on antibiotic therapy and ID, ENT consults were requested. CONCLUSION: Right-sided mastoid and sinus disease and otitis media (coverage for Pseudomonas and possible MRSA), -head CT: Abnormal right temporal bone, with opacification of the right mastoid air cells, probably the middle ear cavity, and of the external auditory canal. Per discussion with referring physician, patient has evidence of otitis with pus coming out of the ear. In addition, there is slight indistinctness of the anterior margin of the temporal bone as compared to the left, which could indicate bony erosive changes.Consider further evaluation with temporal bone CT and/or MRI. No evidence of associated brain abscess. -Bcx NTD -ear cx Staph and Strep Per recommendation of actuarial consultant the patient needs higher level of care at [facility] for Masteidectomy which is not available at [facility]. Transfer center notified. Dr. Trevor Curtis is the accepting physician at [facility]. Discharge Medications New Medications: Cefazolin Sodium/Dextrose,Iso (Cefazolin 2 Gm-D5w Bag) 2 Gm/50 Ml Piggyback 2 GM IV AC for 30 Days, #90 BAG do not fill. medication for transfer to another hospital Quetiapine Fumarate* (Seroquel*) 200 Mg Tablet 200 MG ORAL Q12HR for 30 Days, #60 TAB Continued Medications: Gabapentin* (Gabapentin*) 300 Mg Capsule 300 MG ORAL BEDTIME for , CAP Discontinued Medications: Quetiapine Fumarate (Quetiapine Fumarate) 300 Mg Tablet 300 MG ORAL DAILY for , TAB Discharge Condition Upon Discharge: stable Discharge Vital Signs Last Vital Signs Date Time Temp Pulse Resp B/P (MAP) Pulse Ox O2 Delivery O2 Flow Rate FiO2 10/20/19 12:00 98.0 83 20 150/88 (108) 100 3/6/20 09:00 Nasal Cannula 2.0 Discharge Disposition Patient was discharged to [facility] Discharge Diagnoses: (1) Schizophrenia (2) mastoiditis (3) Osteomyelitis of temporal bone (4) Anemia (5) Normocytic normochromic anemia (6) Bipolar disorder (7) Symptomatic anemia Discharge Instructions Discharge Instructions Follow up with: HIGHER LEVEL OF CARE, ENT EVALUATION FOR MASTEIDECTOMY Services Upon Discharge: other - HIGHER LEVEL OF CARE NEEED Activity: as tolerated May Return to Work/School On: Nov 06, 2019 Sandor Knight MD Oct 20, 2019 16:00
[2019-10-20 20:00] VITALS: BP 152/72
--- NOTE | 2019-10-20 20:45 | Progress Note ---
DATE: 10/20/2019 SUBJECTIVE: The patient is doing well. No behavior issues noted. He is withdrawn, isolated. The patient is refusing to go to psychiatrist. The patient does not know if he has any medical conditions. MENTAL STATUS EXAMINATION: The patient is alert and oriented times self, place, and situation. Mood is neutral. Affect is constricted, congruent with mood. Thought process is concrete. Thought content, no suicidal or homicidal ideation. ASSESSMENT: Stable. PLAN: 1. We will continue current meds. 2. Provide the patient with reality orientation and supportive therapy. Grace Diaz M.D. DR: ELMO JOB#: [id number] CC: JOANNA
[2019-10-20] MEDS: Miralax 17gm pkt ORAL SCH (20:57)
[2019-10-21] VITALS: BP 134/75
[2019-10-21 03:59] VITALS: BP 146/82
[2019-10-21] MEDS: ceFAZolin sod 2 GM in D5W 110 ML IVPB SCH ×3 (05:26→22:30)
[2019-10-21] MEDS: NovoLOG Insulin Flexpen SUBQ SCH ×4 (06:15→20:59)
[2019-10-21 07:34] LABS: BASOPHILS % (AUTO) 0.2 % (0.0-2.0); EOSINOPHILS % (AUTO) 6.5 % (0.0-3.0); HEMATOCRIT 29.5 % (42.0-52.0); HEMOGLOBIN 10.2 G/DL (14.2-18.0); LYMPHOCYTES % (AUTO) 14.1 % (20.0-45.0); MEAN CORPUSCULAR VOLUME 92 FL (80-99); MONOCYTES % (AUTO) 7.7 % (1.0-10.0); NEUTROPHILS % (AUTO) 71.5 % (45.0-75.0); PLATELET COUNT 341 K/UL (150-450); RED CELL DISTRIBUTION WIDTH 13.2 % (11.6-14.8); WHITE BLOOD COUNT 10.3 K/UL (4.8-10.8)
[2019-10-21 07:39] LABS: ANION GAP 7 mmol/L (5-15); BLOOD UREA NITROGEN 17 mg/dL (7-18); CALCIUM 8.8 MG/DL (8.5-10.1); CARBON DIOXIDE 29 MMOL/L (21-32); CHLORIDE 105 MMOL/L (98-107); POTASSIUM 4.2 MMOL/L (3.5-5.1); SODIUM 141 MMOL/L (136-145)
[2019-10-21 08:00] VITALS: BP 100/59
--- NOTE | 2019-10-21 08:09 | General Progress Note ---
Assessment/Plan Assessment/Plan: GI: Plan Problems: (1) Anemia (2) Dizziness (3) Symptomatic anemia Plan This is a 39-year-old male patient with history of neuropathy presented with complaint of dizziness, generalized weakness and right ear pain. During admission, patient presented with a positive occult blood stool. Differentials includes gastric versus duodenal ulcer, severe esophagitis versus gastritis, hemorrhoidal bleed. #Anemia Patient refusing any endoscopy procedures at this time. Given that the patient's hemoglobin has been stable during admission, no plans for additional work-up. Anemia work-up reviewed >> no iron deficiency, no B12 or folate deficiency, no signs of bone marrow suppression Continue to monitor patient's H&H, look for signs of drop We will order additional occult blood stool to evaluate GI bleed Place patient on PPI patient refused EGD and colonoscopy again today wants to go home #Dizziness We will add meclizine as needed, promethazine for any persistent nausea or vomiting Antibiotics per infectious diseases for right ear (+)culture We will follow on a daily basis with any additional recommendations Subjective ROS Limited/Unobtainable: Yes Allergies: Coded Allergies: EGG (Verified Allergy, Unknown, 10/12/19) VENLAFAXINE (Verified Allergy, Unknown, 10/12/19) Objective Last 24 Hour Vital Signs Date Time Temp Pulse Resp B/P (MAP) Pulse Ox O2 Delivery O2 Flow Rate FiO2 10/21/19 03:59 97.8 84 18 146/82 (103) 98 10/21/19 00:00 98.3 86 19 134/75 (94) 99 10/20/19 21:00 Nasal Cannula 2.0 10/20/19 20:54 90 150/72 10/20/19 20:00 98.4 90 20 152/72 (98) 99 10/20/19 16:00 97.8 82 20 147/76 (99) 96 10/20/19 12:00 98.0 83 20 150/88 (108) 100 10/20/19 09:47 85 149/72 10/20/19 09:00 Nasal Cannula 2.0 Intake and Output 10/20/19 10/21/19 19:00 07:00 Intake Total 810 ml 990 ml Balance 810 ml 990 ml Intake Oral 700 ml 550 ml IV Total 110 ml 440 ml # Voids 2 Laboratory Tests 10/21/19 06:40: White Blood Count 10.3, Red Blood Count 3.20L, Hemoglobin 10.2L, Hematocrit 29.5L, Mean Corpuscular Volume 92, Mean Corpuscular Hemoglobin 31.8H, Mean Corpuscular Hemoglobin Concent 34.5, Red Cell Distribution Width 13.2, Platelet Count 341, Mean Platelet Volume 4.8L, Neutrophils (%) (Auto) 71.5, Lymphocytes ( %) (Auto) 14.1L, Monocytes (%) (Auto) 7.7, Eosinophils (%) (Auto) 6.5H, Basophils (%) (Auto) 0.2, Sodium Level 141, Potassium Level 4.2, Chloride Level 105, Carbon Dioxide Level 29, Anion Gap 7, Blood Urea Nitrogen 17, Creatinine 1.0, Estimat Glomerular Filtration Rate > 60, Glucose Level 99, Calcium Level 8.8 Height (Feet): 5 Height (Inches): 6.00 Weight (Pounds): 213 General Appearance: alert EENT: normal ENT inspection Neck: supple Cardiovascular: normal rate Respiratory/Chest: lungs clear Abdomen: normal bowel sounds, non tender, soft Extremities: non-tender Tushar Stockton MD Oct 21, 2019 08:09
[2019-10-21] MEDS: Docusate 100mg cap ORAL SCH ×2 (09:13→17:28)
[2019-10-21] MEDS: QUEtiapine 200mg tab ORAL SCH ×2 (09:13→20:58)
[2019-10-21] MEDS: Aspirin EC 325mg tab ORAL SCH (09:13)
[2019-10-21] MEDS: Heparin 5000 units/ml inj SUBQ SCH ×2 (09:14→20:58)
--- NOTE | 2019-10-21 10:11 | Infectious Diseases Prog Note ---
Assessment/Plan Assessment/Plan ASSESSMENT: The patient is a 39-year-old male with: Right-sided mastoid and sinus disease and otitis media (coverage for Pseudomonas and possible MRSA), -head CT: Abnormal right temporal bone, with opacification of the right mastoid air cells, probably the middle ear cavity, and of the external auditory canal. Per discussion with referring physician, patient has evidence of otitis with pus coming out of the ear. In addition, there is slight indistinctness of the anterior margin of the temporal bone as compared to the left, which could indicate bony erosive changes.Consider further evaluation with temporal bone CT and/or MRI. No evidence of associated brain abscess. -Bcx NTD -ear cx Staph and Strep Diabetes. History of neuropathy. Hypertension. Bipolar disorder. Schizophrenia. History of back surgery due to the fall PLAN: cont pt on Ancef # 14/ 64 3/ sp IV Zosyn # 5 and vancomycin day # 5 Monitor CBC. Monitor BMP. Monitor cultures (blood) DW ENT Dr Stockton who wont see this pt in consultation but recommended to be transferred out to a different center for mastoidectomy (10/19) transfer to [facility] for higher level of care Subjective Allergies: Coded Allergies: EGG (Verified Allergy, Unknown, 10/12/19) VENLAFAXINE (Verified Allergy, Unknown, 10/12/19) Subjective wbc improved no fever Objective Vital Signs Last 24 Hour Vital Signs Date Time Temp Pulse Resp B/P (MAP) Pulse Ox O2 Delivery O2 Flow Rate FiO2 10/21/19 09:00 84 100/59 10/21/19 03:59 97.8 84 18 146/82 (103) 98 10/21/19 00:00 98.3 86 19 134/75 (94) 99 10/20/19 21:00 Nasal Cannula 2.0 10/20/19 20:54 90 150/72 10/20/19 20:00 98.4 90 20 152/72 (98) 99 10/20/19 16:00 97.8 82 20 147/76 (99) 96 10/20/19 12:00 98.0 83 20 150/88 (108) 100 Height (Feet): 5 Height (Inches): 6.00 Weight (Pounds): 213 HEENT: anicteric Respiratory/Chest: normal breath sounds Cardiovascular: regular rhythm Abdomen: non distended Laboratory Tests Test 10/21/19 06:40 White Blood Count 10.3 K/UL (4.8-10.8) Red Blood Count 3.20 M/UL (4.70-6.10) L Hemoglobin 10.2 G/DL (14.2-18.0) L Hematocrit 29.5 % (42.0-52.0) L Mean Corpuscular Volume 92 FL (80-99) Mean Corpuscular Hemoglobin 31.8 PG (27.0-31.0) H Mean Corpuscular Hemoglobin Concent 34.5 G/DL (32.0-36.0) Red Cell Distribution Width 13.2 % (11.6-14.8) Platelet Count 341 K/UL (150-450) Mean Platelet Volume 4.8 FL (6.5-10.1) L Neutrophils (%) (Auto) 71.5 % (45.0-75.0) Lymphocytes (%) (Auto) 14.1 % (20.0-45.0) L Monocytes (%) (Auto) 7.7 % (1.0-10.0) Eosinophils (%) (Auto) 6.5 % (0.0-3.0) H Basophils (%) (Auto) 0.2 % (0.0-2.0) Sodium Level 141 MMOL/L (136-145) Potassium Level 4.2 MMOL/L (3.5-5.1) Chloride Level 105 MMOL/L (98-107) Carbon Dioxide Level 29 MMOL/L (21-32) Anion Gap 7 mmol/L (5-15) Blood Urea Nitrogen 17 mg/dL (7-18) Creatinine 1.0 MG/DL (0.55-1.30) Estimat Glomerular Filtration Rate > 60 mL/min (>60) Glucose Level 99 MG/DL (74-106) Calcium Level 8.8 MG/DL (8.5-10.1) Current Medications Medications (Trade) Dose Ordered Sig/Yaima Route PRN Reason Start Time Stop Time Status Last Admin Dose Admin Acetaminophen (Tylenol) 650 mg Q4H PRN ORAL Mild Pain (Pain Scale 1-3) 10/18/19 19:00 11/11/19 18:59 Acetaminophen (Tylenol) 650 mg Q4H PRN ORAL T>100.4 10/18/19 19:00 11/11/19 18:59 Aspirin (Ecotrin) 325 mg DAILY ORAL 10/19/19 09:00 11/12/19 08:59 10/21/19 09:13 Cefazolin Sodium 2 gm/Dextrose 110 ml @ 220 mls/hr Q8HR IVPB 10/18/19 22:00 10/24/19 19:59 10/21/19 05:26 Dextrose (Dextrose 50%) 25 ml Q30M PRN IV Hypoglycemia 10/18/19 18:30 11/11/19 17:29 Dextrose (Dextrose 50%) 50 ml Q30M PRN IV Hypoglycemia 10/18/19 18:30 11/11/19 17:29 Docusate Sodium (Colace) 100 mg TWICE A DAY ORAL 10/19/19 09:00 11/14/19 08:59 10/21/19 09:13 Gabapentin (Neurontin) 300 mg BEDTIME ORAL 10/18/19 21:00 11/11/19 20:59 10/20/19 20:54 Heparin Sodium (Porcine) (Heparin 5000 units/ml) 5,000 units EVERY 12 HOURS SUBQ 10/18/19 21:00 11/11/19 20:59 10/21/19 09:14 Insulin Aspart (NovoLOG) BEFORE MEALS AND HS SUBQ 10/18/19 21:00 11/11/19 20:59 Meclizine HCl (Antivert) 25 mg Q6H PRN ORAL for dizziness 10/20/19 11:00 11/19/19 10:59 Metoprolol Tartrate (Lopressor) 25 mg EVERY 12 HOURS ORAL 10/18/19 21:00 11/12/19 20:59 10/20/19 20:54 Morphine Sulfate (Morphine Sulfate) 4 mg Q4H PRN IVP Pain 4-10 10/18/19 19:00 10/21/19 18:59 10/20/19 20:56 Pantoprazole (Protonix) 40 mg DAILY ORAL 10/19/19 09:00 11/12/19 08:59 10/21/19 09:13 Polyethylene Glycol (Miralax) 17 gm BEDTIME ORAL 10/18/19 21:00 11/14/19 20:59 Polyethylene Glycol (Miralax) 17 gm DAILYPRN PRN ORAL Constipation 10/18/19 19:00 11/17/19 18:59 Promethazine HCl (Phenergan Plain) 6.25 mg Q6H PRN ORAL Nausea & Vomiting 10/20/19 11:00 11/19/19 10:59 Quetiapine Fumarate (SEROqueL) 200 mg Q12HR ORAL 10/18/19 21:00 11/11/19 20:59 10/21/19 09:13 Munir Thompson MD Oct 21, 2019 10:11
--- NOTE | 2019-10-21 11:30 | Pulmonology Progress Note ---
Assessment/Plan Assessment/Plan ASSESSMENT Right mastoiditis with sinus disease and otitis media Symptomatic anemia Diabetes mellitus Hypertension Inferolateral ischemia on ECG ( 2 separate occasions) CHF - euvolemic Schizophrenia Hx of meth use PLAN OF CARE [facility] floor Echo with pEF 55 to 60% inferolateral ischemia on ECG - 2 separate occasion in pt with HTn and meth use stress test was done as per cardio recs : no definite evidence of myocardial ischemia. However evaluation for this was limited as level of stress achieved was less than optimal. LVEF estimated at 47% on this exam CT head - no acute IC pathology, no evidence of brain abscess ; noted right mastoiditis with sinus disease and otitis media abx as per ID , fup with cx BCX NGTD ; ear CX + Stapg, SGA repeated CT head with findings of suspected R side bone erosion ENT unable to see pt at this facility, but per discussion recommended to transfer to a higher level of care for mastoidectomy DVT, GI prophylaxis BS with SSI Meclizine symptomatically monitor H&H with goal to keep Hgb above 7 fall precaution PT eval and treatment urine tox negative awaiting for a bed case discussed and evaluated by supervising physician Subjective Allergies: Coded Allergies: EGG (Verified Allergy, Unknown, 10/12/19) VENLAFAXINE (Verified Allergy, Unknown, 10/12/19) Subjective no fevers, no leucocytosis no signs of resp distress awaiting for transfer to [facility] for higher level of care Objective Last 24 Hour Vital Signs Date Time Temp Pulse Resp B/P (MAP) Pulse Ox O2 Delivery O2 Flow Rate FiO2 10/21/19 09:00 Nasal Cannula 2.0 10/21/19 09:00 84 100/59 10/21/19 08:00 98.0 84 18 100/59 (73) 97 10/21/19 03:59 97.8 84 18 146/82 (103) 98 10/21/19 00:00 98.3 86 19 134/75 (94) 99 10/20/19 21:00 Nasal Cannula 2.0 10/20/19 20:54 90 150/72 10/20/19 20:00 98.4 90 20 152/72 (98) 99 10/20/19 16:00 97.8 82 20 147/76 (99) 96 10/20/19 12:00 98.0 83 20 150/88 (108) 100 Intake and Output 10/20/19 10/21/19 19:00 07:00 Intake Total 810 ml 990 ml Balance 810 ml 990 ml Intake Oral 700 ml 550 ml IV Total 110 ml 440 ml # Voids 2 Objective General Appearance: no acute distress HEENT: normocephalic, atraumatic, tenderness over R mastoid and R sinuses Respiratory/Chest: lungs clear, no respiratory distress Cardiovascular: normal rate Abdomen: soft, non tender Extremities: no edema Neurologic/Psychiatric: awake Musculoskeletal: normal muscle bulk Laboratory Tests 10/21/19 06:40: White Blood Count 10.3, Red Blood Count 3.20L, Hemoglobin 10.2L, Hematocrit 29.5L, Mean Corpuscular Volume 92, Mean Corpuscular Hemoglobin 31.8H, Mean Corpuscular Hemoglobin Concent 34.5, Red Cell Distribution Width 13.2, Platelet Count 341, Mean Platelet Volume 4.8L, Neutrophils (%) (Auto) 71.5, Lymphocytes ( %) (Auto) 14.1L, Monocytes (%) (Auto) 7.7, Eosinophils (%) (Auto) 6.5H, Basophils (%) (Auto) 0.2, Sodium Level 141, Potassium Level 4.2, Chloride Level 105, Carbon Dioxide Level 29, Anion Gap 7, Blood Urea Nitrogen 17, Creatinine 1.0, Estimat Glomerular Filtration Rate > 60, Glucose Level 99, Calcium Level 8.8 Current Medications Medications (Trade) Dose Ordered Sig/Yaima Route PRN Reason Start Time Stop Time Status Last Admin Dose Admin Acetaminophen (Tylenol) 650 mg Q4H PRN ORAL Mild Pain (Pain Scale 1-3) 10/18/19 19:00 11/11/19 18:59 Acetaminophen (Tylenol) 650 mg Q4H PRN ORAL T>100.4 10/18/19 19:00 11/11/19 18:59 Aspirin (Ecotrin) 325 mg DAILY ORAL 10/19/19 09:00 11/12/19 08:59 10/21/19 09:13 Cefazolin Sodium 2 gm/Dextrose 110 ml @ 220 mls/hr Q8HR IVPB 10/18/19 22:00 10/24/19 19:59 10/21/19 05:26 Dextrose (Dextrose 50%) 25 ml Q30M PRN IV Hypoglycemia 10/18/19 18:30 11/11/19 17:29 Dextrose (Dextrose 50%) 50 ml Q30M PRN IV Hypoglycemia 10/18/19 18:30 11/11/19 17:29 Docusate Sodium (Colace) 100 mg TWICE A DAY ORAL 10/19/19 09:00 11/14/19 08:59 10/21/19 09:13 Gabapentin (Neurontin) 300 mg BEDTIME ORAL 10/18/19 21:00 11/11/19 20:59 10/20/19 20:54 Heparin Sodium (Porcine) (Heparin 5000 units/ml) 5,000 units EVERY 12 HOURS SUBQ 10/18/19 21:00 11/11/19 20:59 10/21/19 09:14 Insulin Aspart (NovoLOG) BEFORE MEALS AND HS SUBQ 10/18/19 21:00 11/11/19 20:59 Meclizine HCl (Antivert) 25 mg Q6H PRN ORAL for dizziness 10/20/19 11:00 11/19/19 10:59 Metoprolol Tartrate (Lopressor) 25 mg EVERY 12 HOURS ORAL 10/18/19 21:00 11/12/19 20:59 10/20/19 20:54 Morphine Sulfate (Morphine Sulfate) 4 mg Q4H PRN IVP Pain 4-10 10/18/19 19:00 10/21/19 18:59 10/20/19 20:56 Pantoprazole (Protonix) 40 mg DAILY ORAL 10/19/19 09:00 11/12/19 08:59 10/21/19 09:13 Polyethylene Glycol (Miralax) 17 gm BEDTIME ORAL 10/18/19 21:00 11/14/19 20:59 Polyethylene Glycol (Miralax) 17 gm DAILYPRN PRN ORAL Constipation 10/18/19 19:00 11/17/19 18:59 Promethazine HCl (Phenergan Plain) 6.25 mg Q6H PRN ORAL Nausea & Vomiting 10/20/19 11:00 11/19/19 10:59 Quetiapine Fumarate (SEROqueL) 200 mg Q12HR ORAL 10/18/19 21:00 11/11/19 20:59 10/21/19 09:13 Lin Robles [employer] Oct 21, 2019 11:30
[2019-10-21 12:00] VITALS: BP 95/52
[2019-10-21] MEDS ORDERED: Tubing IV Secondary IV ONE (12:03)
--- NOTE | 2019-10-21 12:46 | General Progress Note ---
Assessment/Plan Status: stable Assessment/Plan: 39 year old male with history of schizophrenia who lives at a board and care. He was noted to be confused and BIBA for evaluation. Initial workup CT head was negative for intracranial abnormality and there was abnormality i nthe R TEMPORAL BONE CONCERNING FOR MASTOIDITIS/OTITIS. He was started on antibiotic therapy and ID, ENT consults were requested. CONCLUSION: Right-sided mastoid and sinus disease and otitis media (coverage for Pseudomonas and possible MRSA), -head CT: Abnormal right temporal bone, with opacification of the right mastoid air cells, probably the middle ear cavity, and of the external auditory canal. Per discussion with referring physician, patient has evidence of otitis with pus coming out of the ear. In addition, there is slight indistinctness of the anterior margin of the temporal bone as compared to the left, which could indicate bony erosive changes.Consider further evaluation with temporal bone CT and/or MRI. No evidence of associated brain abscess. -Bcx NTD -ear cx Staph and Strep Per recommendation of wine consultant the patient needs higher level of care at [facility] for Mastoidectomy which is not available at [facility]. Transfer Center at [facility] was notified and accepting MD is Dr. Trevor Curtis ( covering for Dr. Shin ) was updated about the transfer 10/20/19. Subjective Date patient seen: Oct 21, 2019 Time patient seen: 12:00 ROS Limited/Unobtainable: Yes Allergies: Coded Allergies: EGG (Verified Allergy, Unknown, 10/12/19) VENLAFAXINE (Verified Allergy, Unknown, 10/12/19) All Systems: reviewed and negative except above Subjective limited due to baseline dementia Objective Last 24 Hour Vital Signs Date Time Temp Pulse Resp B/P (MAP) Pulse Ox O2 Delivery O2 Flow Rate FiO2 10/21/19 09:00 Nasal Cannula 2.0 10/21/19 09:00 84 100/59 10/21/19 08:00 98.0 84 18 100/59 (73) 97 10/21/19 03:59 97.8 84 18 146/82 (103) 98 10/21/19 00:00 98.3 86 19 134/75 (94) 99 10/20/19 21:00 Nasal Cannula 2.0 10/20/19 20:54 90 150/72 10/20/19 20:00 98.4 90 20 152/72 (98) 99 10/20/19 16:00 97.8 82 20 147/76 (99) 96 Intake and Output 10/20/19 10/21/19 19:00 07:00 Intake Total 810 ml 990 ml Balance 810 ml 990 ml Intake Oral 700 ml 550 ml IV Total 110 ml 440 ml # Voids 2 Laboratory Tests 10/21/19 06:40: White Blood Count 10.3, Red Blood Count 3.20L, Hemoglobin 10.2L, Hematocrit 29.5L, Mean Corpuscular Volume 92, Mean Corpuscular Hemoglobin 31.8H, Mean Corpuscular Hemoglobin Concent 34.5, Red Cell Distribution Width 13.2, Platelet Count 341, Mean Platelet Volume 4.8L, Neutrophils (%) (Auto) 71.5, Lymphocytes ( %) (Auto) 14.1L, Monocytes (%) (Auto) 7.7, Eosinophils (%) (Auto) 6.5H, Basophils (%) (Auto) 0.2, Sodium Level 141, Potassium Level 4.2, Chloride Level 105, Carbon Dioxide Level 29, Anion Gap 7, Blood Urea Nitrogen 17, Creatinine 1.0, Estimat Glomerular Filtration Rate > 60, Glucose Level 99, Calcium Level 8.8 Height (Feet): 5 Height (Inches): 6.00 Weight (Pounds): 213 General Appearance: alert EENT: PERRL/EOMI Neck: non-tender Cardiovascular: normal rate Respiratory/Chest: lungs clear Abdomen: non tender, soft Extremities: other - R BKA Edema: trace edema Neurologic: wire twister II-XII grossly normal Sandor Knight MD Oct 21, 2019 12:46
--- NOTE | 2019-10-21 14:24 | Cardiac Electrophysiology PN ---
Assessment/Plan Assessment/Plan 1. Inferolateral ischemia on 2 separate ECGs in a patient with HTN and Meth use. Nl EF.No CP. Stress test nonischemic 2. HTN On Lopressor 25 bid 3. CHF Clinically Euvolemic and EF normal. 4. Right ear otitis FU ENT and ID 5. Bipolar DW instrumentation tech to [facility] pending Subjective Subjective Alert in NAD. No CP or SOB. Transfer to [facility] pending for ENT surgery Objective Last 24 Hour Vital Signs Date Time Temp Pulse Resp B/P (MAP) Pulse Ox O2 Delivery O2 Flow Rate FiO2 10/21/19 12:00 98.4 82 20 95/52 (66) 95 10/21/19 09:00 Nasal Cannula 2.0 10/21/19 09:00 84 100/59 10/21/19 08:00 98.0 84 18 100/59 (73) 97 10/21/19 03:59 97.8 84 18 146/82 (103) 98 10/21/19 00:00 98.3 86 19 134/75 (94) 99 10/20/19 21:00 Nasal Cannula 2.0 10/20/19 20:54 90 150/72 10/20/19 20:00 98.4 90 20 152/72 (98) 99 10/20/19 16:00 97.8 82 20 147/76 (99) 96 Intake and Output 10/20/19 10/21/19 19:00 07:00 Intake Total 810 ml 990 ml Balance 810 ml 990 ml Intake Oral 700 ml 550 ml IV Total 110 ml 440 ml # Voids 2 Laboratory Tests Test 10/21/19 06:40 White Blood Count 10.3 K/UL (4.8-10.8) Red Blood Count 3.20 M/UL (4.70-6.10) L Hemoglobin 10.2 G/DL (14.2-18.0) L Hematocrit 29.5 % (42.0-52.0) L Mean Corpuscular Volume 92 FL (80-99) Mean Corpuscular Hemoglobin 31.8 PG (27.0-31.0) H Mean Corpuscular Hemoglobin Concent 34.5 G/DL (32.0-36.0) Red Cell Distribution Width 13.2 % (11.6-14.8) Platelet Count 341 K/UL (150-450) Mean Platelet Volume 4.8 FL (6.5-10.1) L Neutrophils (%) (Auto) 71.5 % (45.0-75.0) Lymphocytes (%) (Auto) 14.1 % (20.0-45.0) L Monocytes (%) (Auto) 7.7 % (1.0-10.0) Eosinophils (%) (Auto) 6.5 % (0.0-3.0) H Basophils (%) (Auto) 0.2 % (0.0-2.0) Sodium Level 141 MMOL/L (136-145) Potassium Level 4.2 MMOL/L (3.5-5.1) Chloride Level 105 MMOL/L (98-107) Carbon Dioxide Level 29 MMOL/L (21-32) Anion Gap 7 mmol/L (5-15) Blood Urea Nitrogen 17 mg/dL (7-18) Creatinine 1.0 MG/DL (0.55-1.30) Estimat Glomerular Filtration Rate > 60 mL/min (>60) Glucose Level 99 MG/DL (74-106) Calcium Level 8.8 MG/DL (8.5-10.1) Objective HEENT: No JVD .Has drainage from the right ear, also appears to have tenderness over the right side of mastoid, right sinus, right maxilla and frontal sinuses. CHEST: Clear. HEART: S1 and S2. ABDOMEN: Soft and nontender. EXTREMITIES: No cyanosis. NEUROLOGIC: Awake. Lucas Bauer MD Oct 21, 2019 14:24
[2019-10-21 16:00] VITALS: BP 121/68
[2019-10-21 20:00] VITALS: BP_SYST 105; BP_DIAS 35; BP_DIAS 63
[2019-10-21] MEDS: Miralax 17gm pkt ORAL SCH (20:58)
[2019-10-22] VITALS: BP 110/65
[2019-10-22 04:00] VITALS: BP 106/78
[2019-10-22] MEDS: ceFAZolin sod 2 GM in D5W 110 ML IVPB SCH ×3 (05:13→14:41)
[2019-10-22] MEDS: NovoLOG Insulin Flexpen SUBQ SCH ×3 (06:15→16:30)
--- NOTE | 2019-10-22 07:57 | General Progress Note ---
Assessment/Plan Status: stable Assessment/Plan: GI: Plan Problems: (1) Anemia (2) Dizziness (3) Symptomatic anemia Plan This is a 39-year-old male patient with history of neuropathy presented with complaint of dizziness, generalized weakness and right ear pain. During admission, patient presented with a positive occult blood stool. Differentials includes gastric versus duodenal ulcer, severe esophagitis versus gastritis, hemorrhoidal bleed. #Anemia Patient refusing any endoscopy procedures at this time. Given that the patient's hemoglobin has been stable during admission, no plans for additional work-up. Anemia work-up reviewed >> no iron deficiency, no B12 or folate deficiency, no signs of bone marrow suppression Continue to monitor patient's H&H, look for signs of drop We will order additional occult blood stool to evaluate GI bleed Place patient on PPI patient refused EGD and colonoscopy again today wants to go home #Dizziness We will add meclizine as needed, promethazine for any persistent nausea or vomiting Antibiotics per infectious diseases for right ear (+)culture pending transfer to [facility] per cardiology We will follow on a daily basis with any additional recommendations Subjective ROS Limited/Unobtainable: Yes Allergies: Coded Allergies: EGG (Verified Allergy, Unknown, 10/12/19) VENLAFAXINE (Verified Allergy, Unknown, 10/12/19) Objective Last 24 Hour Vital Signs Date Time Temp Pulse Resp B/P (MAP) Pulse Ox O2 Delivery O2 Flow Rate FiO2 10/22/19 04:00 98.0 81 20 106/78 (87) 97 10/22/19 00:00 97.9 83 20 110/65 (80) 99 10/21/19 21:00 Nasal Cannula 2.0 10/21/19 20:58 76 102/65 10/21/19 20:00 98.1 85 20 105/63 (77) 96 10/21/19 16:00 97.7 82 20 121/68 (85) 95 10/21/19 12:00 98.4 82 20 95/52 (66) 95 10/21/19 09:00 Nasal Cannula 2.0 10/21/19 09:00 84 100/59 10/21/19 08:00 98.0 84 18 100/59 (73) 97 Intake and Output 10/21/19 10/22/19 19:00 07:00 Intake Total 960 ml 870 ml Output Total 600 ml 1100 ml Balance 360 ml -230 ml Intake Oral 960 ml 650 ml IV Total 220 ml Output Urine Total 600 ml 1100 ml Height (Feet): 5 Height (Inches): 6.00 Weight (Pounds): 213 General Appearance: alert EENT: normal ENT inspection Neck: supple Cardiovascular: normal rate Respiratory/Chest: decreased breath sounds Abdomen: normal bowel sounds, non tender, soft Extremities: non-tender Tushar Stockton MD Oct 22, 2019 07:56
[2019-10-22 08:00] VITALS: BP 121/71
[2019-10-22] MEDS: Docusate 100mg cap ORAL SCH ×2 (09:00→17:59)
[2019-10-22] MEDS: Heparin 5000 units/ml inj SUBQ SCH (09:00)
[2019-10-22] MEDS: Aspirin EC 325mg tab ORAL SCH (09:00)
[2019-10-22] MEDS: QUEtiapine 200mg tab ORAL SCH (09:00)
--- NOTE | 2019-10-22 10:06 | Pulmonology Progress Note ---
Assessment/Plan Assessment/Plan ASSESSMENT Right mastoiditis with sinus disease and otitis media Symptomatic anemia Diabetes mellitus Hypertension Inferolateral ischemia on ECG ( 2 separate occasions) CHF - euvolemic Schizophrenia Hx of meth use PLAN OF CARE [facility] floor Echo with pEF 55 to 60% inferolateral ischemia on ECG - 2 separate occasion in pt with HTN and meth use stress test was done as per cardio recs : no definite evidence of myocardial ischemia. However evaluation for this was limited as level of stress achieved was less than optimal. LVEF estimated at 47% on this exam CT head - no acute IC pathology, no evidence of brain abscess ; noted right mastoiditis with sinus disease and otitis media abx as per ID , fup with cx BCX NGTD ; ear CX + Stapg, SGA repeated CT head with findings of suspected R side bone erosion ENT unable to see pt at this facility, but per discussion recommended to transfer to a higher level of care for mastoidectomy DVT, GI prophylaxis BS with SSI Meclizine symptomatically monitor H&H with goal to keep Hgb above 7 fall precaution PT eval and treatment urine tox negative awaiting for bed for transfer to a higher level of care case discussed and evaluated by supervising physician Subjective Allergies: Coded Allergies: EGG (Verified Allergy, Unknown, 10/12/19) VENLAFAXINE (Verified Allergy, Unknown, 10/12/19) Subjective no fevers, no leucocytosis no signs of resp distress awaiting for transfer to [facility] for higher level of care Objective Last 24 Hour Vital Signs Date Time Temp Pulse Resp B/P (MAP) Pulse Ox O2 Delivery O2 Flow Rate FiO2 10/22/19 04:00 98.0 81 20 106/78 (87) 97 10/22/19 00:00 97.9 83 20 110/65 (80) 99 10/21/19 21:00 Nasal Cannula 2.0 10/21/19 20:58 76 102/65 10/21/19 20:00 98.1 85 20 105/63 (77) 96 10/21/19 16:00 97.7 82 20 121/68 (85) 95 10/21/19 12:00 98.4 82 20 95/52 (66) 95 Intake and Output 10/21/19 10/22/19 19:00 07:00 Intake Total 960 ml 870 ml Output Total 600 ml 1100 ml Balance 360 ml -230 ml Intake Oral 960 ml 650 ml IV Total 220 ml Output Urine Total 600 ml 1100 ml Objective General Appearance: no acute distress HEENT: normocephalic, atraumatic, tenderness over R mastoid and R sinuses Respiratory/Chest: lungs clear, no respiratory distress Cardiovascular: normal rate Abdomen: soft, non tender Extremities: no edema Neurologic/Psychiatric: awake Musculoskeletal: normal muscle bulk Current Medications Medications (Trade) Dose Ordered Sig/Yaima Route PRN Reason Start Time Stop Time Status Last Admin Dose Admin Acetaminophen (Tylenol) 650 mg Q4H PRN ORAL Mild Pain (Pain Scale 1-3) 10/18/19 19:00 11/11/19 18:59 Acetaminophen (Tylenol) 650 mg Q4H PRN ORAL T>100.4 10/18/19 19:00 11/11/19 18:59 Aspirin (Ecotrin) 325 mg DAILY ORAL 10/19/19 09:00 11/12/19 08:59 10/21/19 09:13 Cefazolin Sodium 2 gm/Dextrose 110 ml @ 220 mls/hr Q8HR IVPB 10/18/19 22:00 10/24/19 19:59 10/22/19 05:13 Dextrose (Dextrose 50%) 25 ml Q30M PRN IV Hypoglycemia 10/18/19 18:30 11/11/19 17:29 Dextrose (Dextrose 50%) 50 ml Q30M PRN IV Hypoglycemia 10/18/19 18:30 11/11/19 17:29 Docusate Sodium (Colace) 100 mg TWICE A DAY ORAL 10/19/19 09:00 11/14/19 08:59 10/21/19 17:28 Gabapentin (Neurontin) 300 mg BEDTIME ORAL 10/18/19 21:00 11/11/19 20:59 10/21/19 20:57 Heparin Sodium (Porcine) (Heparin 5000 units/ml) 5,000 units EVERY 12 HOURS SUBQ 10/18/19 21:00 11/11/19 20:59 10/21/19 09:14 Insulin Aspart (NovoLOG) BEFORE MEALS AND HS SUBQ 10/18/19 21:00 11/11/19 20:59 Meclizine HCl (Antivert) 25 mg Q6H PRN ORAL for dizziness 10/20/19 11:00 11/19/19 10:59 Metoprolol Tartrate (Lopressor) 25 mg EVERY 12 HOURS ORAL 10/18/19 21:00 11/12/19 20:59 10/20/19 20:54 Pantoprazole (Protonix) 40 mg DAILY ORAL 10/19/19 09:00 11/12/19 08:59 10/21/19 09:13 Polyethylene Glycol (Miralax) 17 gm BEDTIME ORAL 10/18/19 21:00 11/14/19 20:59 Polyethylene Glycol (Miralax) 17 gm DAILYPRN PRN ORAL Constipation 10/18/19 19:00 11/17/19 18:59 Promethazine HCl (Phenergan Plain) 6.25 mg Q6H PRN ORAL Nausea & Vomiting 10/20/19 11:00 11/19/19 10:59 Quetiapine Fumarate (SEROqueL) 200 mg Q12HR ORAL 10/18/19 21:00 11/11/19 20:59 10/21/19 20:58 Lin Robles NP Oct 22, 2019 10:06
--- NOTE | 2019-10-22 14:46 | General Progress Note ---
Assessment/Plan Status: stable Assessment/Plan: 39 year old male with history of schizophrenia who lives at a board and care. He was noted to be confused and BIBA for evaluation. Initial workup CT head was negative for intracranial abnormality and there was abnormality i nthe R TEMPORAL BONE CONCERNING FOR MASTOIDITIS/OTITIS. He was started on antibiotic therapy and ID, ENT consults were requested. CONCLUSION: Right-sided mastoid and sinus disease and otitis media (coverage for Pseudomonas and possible MRSA), -head CT: Abnormal right temporal bone, with opacification of the right mastoid air cells, probably the middle ear cavity, and of the external auditory canal. Per discussion with referring physician, patient has evidence of otitis with pus coming out of the ear. In addition, there is slight indistinctness of the anterior margin of the temporal bone as compared to the left, which could indicate bony erosive changes.Consider further evaluation with temporal bone CT and/or MRI. No evidence of associated brain abscess. -Bcx NTD -ear cx Staph and Strep Per recommendation of supervisor home energy consultant the patient needs higher level of care at [facility] for Mastoidectomy which is not available at [facility]. Transfer Center at [facility] was notified and accepting MD is Dr. Trevor Curtis ( covering for Dr. Shin ) was updated about the transfer 10/20/19. Schizophrenia Dr. Diaz consulting and will follow her psychiatry recommendations. Seroquel [address] GI consultation for anemia. The patient declines any invasive procedures. Dr. Stockton recommends FOBT and PPI for now. Subjective Date patient seen: Oct 22, 2019 Time patient seen: 12:30 ROS Limited/Unobtainable: Yes Allergies: Coded Allergies: EGG (Verified Allergy, Unknown, 10/12/19) VENLAFAXINE (Verified Allergy, Unknown, 10/12/19) All Systems: reviewed and negative except above Subjective limited due to baseline psychiatric condition. He wants to go home and reports being ready for discharge. Objective Last 24 Hour Vital Signs Date Time Temp Pulse Resp B/P (MAP) Pulse Ox O2 Delivery O2 Flow Rate FiO2 10/22/19 08:00 98.8 87 19 121/71 (88) 96 10/22/19 04:00 98.0 81 20 106/78 (87) 97 10/22/19 00:00 97.9 83 20 110/65 (80) 99 3/7/20 21:00 Nasal Cannula 2.0 10/21/19 20:58 76 102/65 10/21/19 20:00 98.1 85 20 105/63 (77) 96 10/21/19 16:00 97.7 82 20 121/68 (85) 95 Intake and Output 10/21/19 10/22/19 19:00 07:00 Intake Total 960 ml 870 ml Output Total 600 ml 1100 ml Balance 360 ml -230 ml Intake Oral 960 ml 650 ml IV Total 220 ml Output Urine Total 600 ml 1100 ml Height (Feet): 5 Height (Inches): 6.00 Weight (Pounds): 213 General Appearance: WD/WN EENT: PERRL/EOMI, TM abnormal (R), other - mild dried drainage in the R ear canal Neck: supple Cardiovascular: normal rate, regular rhythm Respiratory/Chest: lungs clear Abdomen: non tender, soft Extremities: non-tender 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
== END 2019-10-22 19:55 | disposition left against medical advice (07) | DRG 539 ==
LOC: EDBD 13:17 → EMR 15:04 → 2E 15:13 → EDBEDREQ 16:05 → 4E 10-18 17:55
DX: M86.8X8 Other osteomyelitis, other site (principal); G92 Toxic encephalopathy; H66.91 Otitis media, unspecified, right ear; H70.891 Other mastoiditis and related conditions, right ear; I11.0 Hypertensive heart disease with heart failure; I50.9 Heart failure, unspecified; D64.9 Anemia, unspecified; F31.9 Bipolar disorder, unspecified; Z88.8 Allergy status to other drugs, medicaments and biological substances; E11.40 Type 2 diabetes mellitus with diabetic neuropathy, unspecified; Z91.81 History of falling; F17.210 Nicotine dependence, cigarettes, uncomplicated; F25.9 Schizoaffective disorder, unspecified; H53.459 Other localized visual field defect, unspecified eye; R51 Headache
CPT/HCPCS: 36415; 70450; 70460; 71045; 78452; 80048; 80053; 80061; 80202; 80307; 81003; 82270; 82378; 82550; 82607; 82746; 82962; 83036; 83540; 83550; 83615; 83735; 83880; 84100; 84484; 85007; 85025; 85044; 85060; 85610; 85651; 85730; 87040; 87070; 87081; 87181; 93005; 93017; 93306; 96361; 96365; 96375; 99285; G0480; J1815; J2405; J2785; J7030